=== PATIENT | female | born 1985 | race African-American/Black ===

== ENCOUNTER 2018-05-20 06:00 | Day surgery (SDC) | payer MEDICAID, SELFPAY ==
[2018-05-20] VITALS (8 sets, daily range): BP systolic 127–145; BP diastolic 77–90; PULSE 56–86; RESP 16; TEMP 36.7–37.6; O2SAT 95–98; BMI 48.5
[2018-05-20 06:37] LABS: Internal QC Validated? YES +Cl - CLEAR BKGD; Pregnancy, Urine Negative Negative
[2018-05-20] MEDS: Acetaminophen 500 MG Tablet 1000 MG PO (06:47)
[2018-05-20] MEDS: Ketorolac 60 MG/2 ML Vial IM (06:49)
--- NOTE | 2018-05-20 07:27 | PCM.HP.OB ---
History Date of Admission: 09/17/17 Final [place] Source: LMP History of this : This is a 32 year-old, G [], P [], at weeks gestational age. Allergies celecoxib [From Celebrex] Allergy (Verified 05/13/18 09:17) Swelling lisinopril Allergy (Verified 05/13/18 09:17) Chest tightness meperidine HCl [From Demerol] Allergy (Verified 05/13/18 09:17) Unknown Penicillins Allergy (Verified 05/13/18 09:17) Rash tramadol Allergy (Verified 05/13/18 09:17) Rash steri strips Allergy (Uncoded 05/13/18 09:17) Rash Home Medications: Home Medications Omeprazole 40 mg PO DAILY 05/07/16 Acetaminophen [Tylenol Extra Strength] 500 mg PO Q6H PRN PRN 05/13/18 Levonorgestrel-Ethin Estradiol [Aviane-28 Tablet] 1 each PO DAILY 05/13/18 Naproxen Sodium [Anaprox Ds] 550 mg PO TID PRN PRN 05/13/18 Smoking Status: Current every day smoker Alcohol: None History Past Pregnancies: Past Pregnancies Delivery Date Name GA/Weeks Outcome Route Weight Infant Gender Labor Length Anesthesia Delivery Location Provider FOB Review of Systems Constitutional: Denies: Anorexia, Chills, Fever Cardiovascular: Denies: Chest Pain Respiratory: Denies: Cough Gastrointestinal: Denies: Abdominal Pain Gynecological: Reports: Excessively long or heavy periods, - Physical Exam Vitals: Vital Signs Temp Pulse Resp BP Pulse Ox 99.7 F H 64 16 145/83 H 98 05/20/18 06:43 05/20/18 06:43 05/20/18 06:43 05/20/18 06:43 05/20/18 06:43 General: Alert, Cooperative, No apparent distress Cardiovascular: Regular rate, Regular Rhythm Lungs: Normal air movement Abdomen: Soft, Non Tender, Non-Distended, Obese Extremities:: No edema Assessment/Plan 32 YOF w/ heavy menses who has completed child bearing. Previous tubal. Failed conservative measures. Desires ablation. R/B/A/P reviewed, questions answered and she desires to proceed
--- NOTE | 2018-05-20 08:18 | PCM.DC.D&C ---
Discharge Diet: No Restrictions Discharge Activity: Return to Normal Activity, May Shower, May Take a Tub Bath - in 2 weeks. Allergies/Adverse Reactions: Allergies celecoxib [From Celebrex] Allergy (Verified 05/13/18 09:17) Swelling lisinopril Allergy (Verified 05/13/18 09:17) Chest tightness meperidine HCl [From Demerol] Allergy (Verified 05/13/18 09:17) Unknown Penicillins Allergy (Verified 05/13/18 09:17) Rash tramadol Allergy (Verified 05/13/18 09:17) Rash steri strips Allergy (Uncoded 05/13/18 09:17) Rash Medications to take at Discharge Omeprazole 40 mg PO DAILY 05/07/16 Hydrocodone Bitart/Apap 5-325 [[place] 5MG-325MG] 1 tablet PO Q6H PRN PRN 5 Days #8 tablet 05/20/18 Naproxen Sodium [Anaprox Ds] 550 mg PO TID PRN PRN #30 tab 05/20/18 The following prescriptions were given: Hydrocodone Bitart/Apap 5-325 [[place] 5MG-325MG] 1 tablet PO Q6H PRN PRN 5 Days #8 tablet PRN Reason: Pain Naproxen Sodium [Anaprox Ds] 550 mg PO TID PRN PRN #30 tab PRN Reason: Pain Primary Care Physician: Chris Licona MD [Primary Care Provider] - Test Results: Test results from this visit will be discussed in further detail at your follow-up appointment, if applicable. Please Follow Up With: Katelin Welsh MD When: as scheduled in 2 weeks
--- NOTE | 2018-05-20 08:23 | PCM.OPRPT ---
Report of Operation Date of Procedure: 05/20/18 Pre-Operative Diagnosis: Metromenorrhagia Post-Operative Diagnosis: Same Surgery/Procedure Performed:: Hysteroscopy with Trice endometrial ablation Description of Surgical Findings:: Lush endometrium. Normal-appearing cervix. manager intern: Alma Campos Type of Anesthesia:: MAC/Supplemental/Local Anesthesiologist: Mrya Metcalf Special Medications: none Specimen's removed: none Drains: none Estimated Blood Loss (mL): 10cc Fluids Replaced: 1000 cc LR Description of Procedure: The patient was taken to the OR where she was prepped and draped in dorsal lithotomy position. The weighted speculum was placed in the vagina and the anterior lip of the cervix was grasped with a single-tooth tenaculum. A paracervical block was administered with 1% lidocaine with 1-100,000 epinephrine solution. The cervix was dilated serially with Hegar dilators. The 5mm hysteroscope was placed into the uterine cavity and the above findings were noted. Bilateral tubal ostia were identified. The uterus sounded to 8 cm and the cervical length was 3.5 cm. The endometrial cavity length was 4.5 cm. The hysteroscope was removed. The Trice device was set to 4.5 cm. The instrument was then seated into the endometrial cavity and the indicator was in the green. The cervical seal balloon was inflated and the uterine integrity test was passed. The ablation procedure was initiated and completed without interruption. During the ablation procedure gentle traction was held on the tenaculum and the Trice device was held up against the uterine fundus. When the ablation procedure was completed the Trice was removed. The tenaculum was removed and the tenaculum site was noted to be hemostatic. All sponge and needle counts were correct. A vaginal sweep was performed by me. The patient was awakened and taken to the recovery room in stable condition. Hysteroscopic ins: 200cc normal saline Hysteroscopic outs:150cc Findings: Endometrial cavity: normal, no fibroids or polyps noted Cervix: normal Vagina: normal Grafts/Implants Used: none - Complications none - Admit VTE Documentation VTE Present on Admission: No VTE Mechan Device Prophylaxis: SCD's VTE Pharm Prophylaxis ordered?: No
== END 2018-05-20 09:56 | disposition home or self-care (01) ==
LOC: SDC 06:00 → AC 06:02
PROVIDERS: Anesthesiology; Family Provider Family Medicine; PCP Family Medicine; Visit Provider Obstetrics & Gynecology
PROC: 0U5B8ZZ Destruction of Endometrium, Via Natural or Artificial Opening Endoscopic (ICD-10-PCS; CPT 58558; principal; 2018-05-20 07:15)
DX: N92.1 Excessive and frequent menstruation with irregular cycle (principal); G47.30 Sleep apnea, unspecified; F17.200 Nicotine dependence, unspecified, uncomplicated; Z79.1 Long term (current) use of non-steroidal anti-inflammatories (NSAID); Z79.899 Other long term (current) drug therapy
CPT/HCPCS: 58563; 81025; J7120; J2405

== ENCOUNTER 2019-04-14 11:50 | Emergency (ER) | payer MEDICAID, SELFPAY ==
[2019-04-14 11:51] VITALS: BP 127/85; PULSE 71; RESP 17; TEMP 36.8; O2SAT 99; BMI 51.4
--- NOTE | 2019-04-14 12:16 | CT_ITS ---
STUDY: CT ABDOMEN AND PELVIS WITH CONTRAST REASON FOR EXAM: Female, 33 years old. 6 day history of abdominal pain. Elevated white cell count. RADIATION DOSAGE (If Supplied By Facility): CTDIvol = ( 45.65 ) mGy, DLP = ( 1960.92 ) mGycm TECHNIQUE: Transaxial images were obtained from the dome of the diaphragm to the symphysis pubis without oral contrast. 75mL IV Isovue 300 was administered. Sagittal and coronal images were reconstructed. Individualized dose optimization techniques were used for this CT. COMPARISON: Comparison is made with prior study dated April 11, 2017. FINDINGS: Stable minimal degree of increased markings at the lung bases suggest lobar scarring. The visualized portions of the heart are within normal limits. There is decreased attenuation of the liver consistent with steatosis. Normal gallbladder and extrahepatic biliary system. Normal spleen. Normal pancreas. Normal bilateral adrenal glands. Normal right kidney. Normal left kidney. Normal visualized stomach. Normal small intestine. Normal colon. The appendix is visualized and appears normal. Small lymph nodes are seen in the mesentery in the right lower quadrant suggesting mesenteric adenitis. Normal abdominal aorta. Normal inferior vena cava. Normal retroperitoneum. Normal urinary bladder. Dominant follicle in the right ovary measuring 1.5 cm Normal abdominal wall. Normal osseous structures. CT/Abdomen/Pelvis W IV Cont ONLY IMPRESSION: Findings suggesting mesenteric adenitis in the right lower quadrant. Fatty infiltration of the liver. Electronically Signed: Casey Traylor, at 13:49 EDT , Service support ,
--- NOTE | 2019-04-14 12:16 | EKG12_ITS ---
Test Reason : CP Blood Pressure : / mmHG Vent. Rate : 077 BPM Atrial Rate : 077 BPM P-R Int : 146 ms QRS Dur : 068 ms QT Int : 374 ms P-R-T Axes : 023 -03 -26 degrees QTc Int : 423 ms Normal sinus rhythm Normal ECG Confirmed by MORENO NORTH MD ([id number]), medical editor GEN HOUGH ([id number]) on 04/18/2019 2:29:19 PM Referred By: MR Confirmed By:MORENO NORTH MD
[2019-04-14 12:38] LABS: Absolute Lymphocyte Count 3.22 X10^3/uL (0.83-4.51); Absolute Neutrophil Count 7.6 X10^3/uL (2.0-7.7); Basophil# 0.04 X10^3/uL; Basophil% 0.3 % (0-1); Eosinophil# 0.08 X10^3/uL; Eosinophils% 0.7 % (0-5); Hematocrit 38.4 % (37-47); Hemoglobin 12.9 g/dL (12.0-15.0); Lymphocyte # 3.22 X10^3/ul (4.0); Lymphocyte % 27.8 % (19-41); Mean Corp Hgb Conc 33.6 g/dL (32-36); Mean Corpuscular Hgb 25.2 pg (27.0-32.0); Mean Corpuscular Volume 75.1 fL (81-99); Monocyte# 0.59 X10^3/uL; Monocyte% 5.1 % (0-10); NRBC Flagged by Analyzer 0 % (0-5); Neutrophil # 7.62 X10^3/uL (2.7-7.7); Neutrophil % 65.7 % (47-70); Platelet Count 497 K/mm3 (150-450); RBC Distribution Width CV 15.8 % (11.6-14.6); RBC Distribution Width SD 42.8 fl (35.1-43.9); Red Blood Count 5.11 M/mm3 (4.2-5.4); White Blood Count 11.6 K/mm3 (4.4-11.0)
[2019-04-14 12:51] LABS: ALB/GLOB Ratio 0.8 RATIO (0.9-2.4); AST(SGOT) 9 U/L (15-37); Alanine Aminotransfer ALT/SGPT 20 U/L (13-56); Albumin, Serum 3.5 g/dL (3.2-5.0); Alkaline Phosphatase 85 U/L (45-117); Anion Gap 5 (5-15); BUN 10 mg/dL (7-18); BUN/Creat Ratio 10.8 RATIO (10-20); Calcium,Total 8.9 mg/dL (8.5-10.1); Chloride 108 mmol/L (98-107); Creatinine, Serum 0.92 mg/dL (0.55-1.02); EST Glomerular Filtration Rate 75 mL/min (>60); Est Glom Filt Rate - Afr Amer 90 mL/min (>60); Estimated Creatinine Clearance 78.99 ml/min; Globulin 4.6 g/dL (2.2-4.2); Glucose 98 mg/dL (74-106); Lipase 98 U/L (73-393); Potassium 3.8 mmol/L (3.5-5.1); Protein, Total 8.1 g/dL (6.4-8.2); Sodium Level 136 mmol/L (136-145)
[2019-04-14] MEDS: Ondansetron 4 MG/2 ML Vial IV (13:02)
[2019-04-14] MEDS: 0.9% Normal Saline 1,000 ML 1000 ML IV (13:02)
[2019-04-14] MEDS: Morphine 4 MG/ML Syringe IV (13:03)
[2019-04-14] MEDS: Mag Hydrox/Al Hydrox/Simeth 30 ML UDC PO (13:04)
[2019-04-14 13:06] VITALS: BP 105/70; PULSE 77; RESP 18; O2SAT 99
[2019-04-14 13:22] LABS: Internal QC Validated? YES +Cl - CLEAR BKGD; Pregnancy, Serum, hCG Quali. NEGATIVE Negative
--- NOTE | 2019-04-14 14:29 | ED.DCSUM_ITS ---
- ER Visit Summary Date of Service: 04/14/19 Chief Complaint: Abdominal pain History of Present Illness: The patient is a [address] Randle. She reports that she has upper abdominal pain that began 5 days ago. To continue his pain that waxes and wanes. She describes it as sharp and icing. Is 10 out of 10 at worst and 7 out of 10 currently. Is worsened by eating or bending over. However, she also reports it is relieved by bending over at times as well. It is unchanged with deep breaths, movement, or exertion. She does state that it radiates up into the center of her chest. She denies any other chest pain. No fever or chills. No ankle swelling or calf pain. Physical Examination: Vitals: Stable. Afebrile. General: Well-nourished and well-developed. Head: Normocephalic atraumatic. Neck: Supple, no lymphadenopathy. No JVD. Nontender. Cardiovascular: Regular rate and rhythm. No murmurs. Respiratory: No respiratory distress. Clear to auscultation bilaterally. Abdominal: Soft, moderate tenderness palpation over her right upper quadrant, epigastric, and left upper quadrants, nondistended, normal bowel sounds. No guarding, rebound, or peritoneal signs. Back: Nontender. Extremities: Nontender, no edema. Skin: Normal color, no rash. Neurologic: Alert and oriented ?3. Cranial nerves II through XII are intact. Normal strength and sensation. Psych: Normal affect. Test Results: EKG is sinus at 77 with no acute changes. Troponin is negative. test is negative. LFTs are remarkable globin of 4.6 and AST of 9. Chem-7 shows a chloride 108. CBC shows a white count of 11.6 with 497 platelets. Clinical Impression(s) from Imaging Studies Abdomen/Pelvis CT 04/14/19 12:16 IMPRESSION: Findings suggesting mesenteric adenitis in the right lower quadrant. Fatty infiltration of the liver. Electronically Signed: Casey Traylor, at 13:49 EDT , Service support , Emergency Department Course and Treatment: Patient was given a dose of Toradol, morphine, and Zofran IV with minimal relief. She was given a GI cocktail with significant relief. Treatment Plan: Patient is already on Carafate and omeprazole. However, she reports that she been on the omeprazole for approximate 1 year. She will have Zantac added to this regimen and instructed to follow Dr. Randle as soon as possible for further evaluation and treatment. Return to the emergency department for any worsening symptoms. Disposition: To home in improved and stable condition. Impression: 1. Abdominal pain, uncertain cause. 2. Mesenteric adenitis. This note was generated with Center[employer] dictation software. It may contain incorrect words, spelling, and punctuation that were not noted in review of the chart prior to signing ED Disposition - Plan for ED Patient: Disposition: Home or Assisted Living Instructions: ABDOMINAL PAIN, Unknown Cause, (Female) Prescriptions: Ranitidine [Zantac] 300 mg PO DAILY #30 tab Prescription Printed Referrals: Chris Licona MD [Primary Care Provider] - 3-5 Days
[2019-04-14 14:48] VITALS: BP 120/75; PULSE 69; RESP 20; O2SAT 100
== END 2019-04-14 14:50 | disposition home or self-care (01) ==
LOC: ED 12:28
PROVIDERS: Emergency Provider Emergency Medicine; Family Provider Family Medicine; PCP Family Medicine
DX: I88.0 Nonspecific mesenteric lymphadenitis (principal); R10.10 Upper abdominal pain, unspecified; K21.9 Gastro-esophageal reflux disease without esophagitis; E11.9 Type 2 diabetes mellitus without complications; Z72.0 Tobacco use
CPT/HCPCS: 74177; 80053; 83690; 84484; 84703; 85025; 93005; 96361; 96374; 96375; 99285; Q9967; A4216; J2405

== ENCOUNTER 2019-06-09 10:57 | Emergency (ER) | payer MEDICAID, SELFPAY ==
[2019-06-09 10:59] VITALS: BP 163/83; PULSE 88; RESP 16; TEMP 36.9; O2SAT 99; BMI 52.4
--- NOTE | 2019-06-09 11:15 | US_ITS ---
STUDY: ABDOMINAL ULTRASOUND - RIGHT UPPER QUADRANT REASON FOR VISIT: Female, 33 years old. Right upper quadrant pain and vomiting. TECHNIQUE: Ultrasound evaluation of the right upper quadrant was performed with real-time and static sequeira-scale imaging. TECHNICAL QUALITY: Adequate. COMPARISON: Comparison is made with prior ultrasound examination dated May 25, 2014. FINDINGS: Liver: The liver is enlarged and measures 20 cm. There is increased echogenicity consistent with fatty infiltration. The bile ducts are within normal limits. There is hepatic color flow. The direction of portal flow is hepatopetal. There is no demonstrated mass lesion. Gallbladder: Normal distended gallbladder. The gallbladder wall measures 2.4 mm. There is a positive sonographic Alexander's sign. There is a trace amount of pericholecystic fluid. There are multiple echogenic structures within the gallbladder, consistent with multiple gallstones. Common Bile Duct (C.B.D.): The common bile duct measures 6.4 mm. Pancreas: Normal size of the head, body and tail of the pancreas. There is normal echogenicity of the pancreas. There is no demonstrated pancreatic mass or cyst. Right Kidney: Normal size of the right kidney. The right kidney measures 11.1 cm x 5.1 cm x 4.1 cm. Normal renal cortex. The right cortex measures 1.2 cm. There is no demonstrated renal mass or cyst. There is no right hydronephrosis. US/Gallbladder IMPRESSION: Multiple gallstones with minimal pericholecystic fluid. Hepatomegaly and fatty infiltration of the liver. Electronically Signed: Casey Traylor, at 13:26 EDT , Service support ,
--- NOTE | 2019-06-09 11:19 | ED.VISSUMM ---
- ER Visit Summary Date of Service: 06/09/19 Chief Complaint: Right upper quadrant abdominal pain History of Present Illness: The patient is a 33 F history of diabetes, hypertension, sleep apnea. Recently diagnosed with gallbladder disease with gallbladder dysfunction with a positive HIDA scan and known sludge. She has a pending elective cholecystectomy next week at [facility]. States yesterday started right upper quadrant abdominal pain with associated nausea vomiting. Today it worse pain with fever. As high as 101. No diarrhea. No dysuria. Physical Examination: Young female no acute distress. Vital signs are stable and afebrile. H EENT exam unremarkable. Moist mucous membranes. Neck nontender no lymphadenopathy. Lungs clear to auscultation bilaterally. Heart regular rhythm no murmur. Abdomen soft. Tender in the right upper quadrant and epigastric area. No Alexander sign. Left lower quadrant unremarkable. Normal bowel sounds soft abdomen. She is moving all 4 extremities. No edema. Nontender. Back nontender. Neurologically she is awake and alert. Test Results: CBC shows mildly elevated white count 12.7 with a hemoglobin. Chemistries are normal with a normal creatinine gap. Liver enzymes are normal. Lipase is normal at 80. UA is normal. test negative. Ultrasound right upper quadrant shows multiple gallstones with mild pericholecystic fluid. No signs of obstruction. Emergency Department Course and Treatment: Gallbladder dysfunction with a pending cholecystectomy next week. Resents with right upper quadrant abdominal pain and fever the last 2 days. Repeat exams patient is doing well at 1631. Abdomen is benign. She was treated with morphine, Toradol and Tylenol. Her current temperature is 99.2 orally.. Treatment Plan: I spoke to Dr. Mullen general surgeon on-call from the diner for the patient general surgeon Dr. Hawthorne. He had I discussed the patient's exam, vital signs history and test results. He is comfortable with her being discharged home with outpatient follow-up tomorrow. They may try to move her surgery up. I discussed all this with patient she is comfortable with the plan. I will write her for 10 Sheldon for pain. Otherwise continue using NSAIDs. Return to ER if increasing pain, fever or feeling worse. Disposition: Discharge Impression: Acute right upper quadrant abdominal pain secondary to biliary colic secondary to gallstones and gallbladder disease History of diabetes This note was generated with Driverdoation software. It may contain incorrect words, spelling, and punctuation that were not noted in review of the chart prior to signing ED Disposition - Plan for ED Patient: Referrals: Chris Licona MD [Primary Care Provider] -
[2019-06-09 11:31] LABS: Absolute Lymphocyte Count 2.87 X10^3/uL (0.83-4.51); Absolute Neutrophil Count 9.1 X10^3/uL (2.0-7.7); Basophil# 0.03 X10^3/uL; Basophil% 0.2 % (0-1); Eosinophil# 0.11 X10^3/uL; Eosinophils% 0.9 % (0-5); Hematocrit 39.9 % (37-47); Lymphocyte # 2.87 X10^3/ul (4.0); Lymphocyte % 22.5 % (19-41); Mean Corp Hgb Conc 32.6 g/dL (32-36); Mean Corpuscular Hgb 24.9 pg (27.0-32.0); Mean Corpuscular Volume 76.3 fL (81-99); Mean Platelet Vol. 8.8 fl (6.2-12.0); Monocyte# 0.57 X10^3/uL; Monocyte% 4.5 % (0-10); NRBC Flagged by Analyzer 0 % (0-5); Neutrophil # 9.12 X10^3/uL (2.7-7.7); Neutrophil % 71.7 % (47-70); Platelet Count 448 K/mm3 (150-450); RBC Distribution Width CV 16.4 % (11.6-14.6); RBC Distribution Width SD 45.3 fl (35.1-43.9); Red Blood Count 5.23 M/mm3 (4.2-5.4); White Blood Count 12.7 K/mm3 (4.4-11.0)
[2019-06-09] MEDS: 0.9% Normal Saline 1,000 ML 1000 ML IV (11:33)
[2019-06-09] MEDS: Ondansetron 4 MG/2 ML Vial IV ×2 (11:34→14:54)
[2019-06-09] MEDS: Ketorolac 30 MG/ML Syringe IV (11:34)
[2019-06-09 11:46] LABS: AST(SGOT) 10 U/L (15-37); Alanine Aminotransfer ALT/SGPT 19 U/L (13-56); Albumin, Serum 3.3 g/dL (3.2-5.0); Alkaline Phosphatase 84 U/L (45-117); Anion Gap 4 (5-15); BUN 9 mg/dL (7-18); BUN/Creat Ratio 9.1 RATIO (10-20); Bilirubin, Direct 0.14 mg/dL (0.00-0.30); Calcium,Total 8.7 mg/dL (8.5-10.1); Chloride 108 mmol/L (98-107); Creatinine, Serum 0.98 mg/dL (0.55-1.02); EST Glomerular Filtration Rate 69 mL/min (>60); Est Glom Filt Rate - Afr Amer 84 mL/min (>60); Estimated Creatinine Clearance 74.16 ml/min; Globulin 4.7 g/dL (2.2-4.2); Glucose 97 mg/dL (74-106); Lipase 80 U/L (73-393); Potassium 3.8 mmol/L (3.5-5.1); Sodium Level 139 mmol/L (136-145)
[2019-06-09 11:52] LABS: Internal QC Validated? YES +Cl - CLEAR BKGD
[2019-06-09 11:53] LABS: Pregnancy, Serum, hCG Quali. NEGATIVE Negative
[2019-06-09] MEDS: Acetaminophen 500 MG Tablet 1000 MG PO (13:35)
[2019-06-09 13:36] VITALS: RESP 18
[2019-06-09 14:45] LABS: Mucous, Urine 0 SEEN /hpf (<or=2+); Red Blood Cells-Urine 0 SEEN /hpf (0-5)
[2019-06-09 14:48] LABS: Color, Urine Yellow (Yellow); Glucose, Dipstick Normal (Normal); Ketone-Dipstick Negative (Negative); Leukocyte Esterase-Dipstick 25 /ul (Negative); Nitrite-Dipstick Negative (Negative); Occult Blood-Urine Negative /ul (Negative); Protein-Dipstick Negative (Negative); Urine Bilirubin Dipstick Negative (Negative); Urine Clarity Sl. Cloudy (Clear); Urine Urobilinogen Normal (Normal)
[2019-06-09] MEDS: Morphine 4 MG/ML Syringe IV (14:54)
[2019-06-09 14:59] LABS: Bacteria 1+ /hpf (None Seen); Squamous Epithelial Cells - UA 0-5 SEEN /hpf (5-10); White Blood Cells 0-5 SEEN /hpf (0-5)
[2019-06-09 15:03] VITALS: RESP 18
--- NOTE | 2019-06-09 16:35 | ED.DEP ---
ED Disposition - Plan for ED Patient: Disposition: Home or Assisted Living Instructions: BILIARY COLIC with Gallstone (Confirmed) Prescriptions: Hydrocodone Bitart/Apap 5-325 [Nardin 5MG-325MG] 1 - 2 tab PO Q4H PRN PRN 5 Days #14 tab PRN Reason: Pain Prescription Printed Additional Instructions: Call and follow-up with your general surgeon Dr. Hawthorne tomorrow morning. Call their office. I spoke to the doctor covering for Dr. Hawthorne today and they will try to move up her surgery. Motrin and Nardin for pain. Do not drive or use alcohol using the Nardin. Return to this ER or [facility] ER if you are feeling worse such as increasing pain or continued fever.
== END 2019-06-09 16:59 | disposition home or self-care (01) ==
PROVIDERS: Emergency Provider Emergency Medicine; Family Provider Family Medicine; PCP Family Medicine
DX: K80.20 Calculus of gallbladder without cholecystitis without obstruction (principal); R10.11 Right upper quadrant pain; I10 Essential (primary) hypertension; E11.9 Type 2 diabetes mellitus without complications; G47.33 Obstructive sleep apnea (adult) (pediatric); Z72.0 Tobacco use
CPT/HCPCS: 76705; 80048; 80076; 81001; 83690; 84703; 85025; 96361; 96374; 96375; 96376; 99284; J7030; A4216; J2405

== ENCOUNTER 2020-06-01 13:21 | Emergency (ER) | payer MEDICAID, SELFPAY ==
[2020-06-01 13:22] VITALS: BP 147/109; PULSE 92; RESP 18; TEMP 36.4; O2SAT 100; BMI 52.8
--- NOTE | 2020-06-01 13:39 | CT_ITS ---
STUDY: CT ABDOMEN AND PELVIS WITH CONTRAST REASON FOR EXAM: Female, 34 years old. Pelvic pain, vaginal bleeding, painful urination, intermittent constipation and diarrhea. Prior x 3, cholecystectomy, diabetes. RADIATION DOSAGE (If Supplied By Facility): CTDIvol = ( 33.79 ) mGy, DLP = ( 1934.88 ) mGycm TECHNIQUE: Transaxial images were obtained from the dome of the diaphragm to the symphysis pubis without oral contrast. 100mL Isovue 300 was administered. Sagittal and coronal images were reconstructed. Individualized dose optimization techniques were used for this CT. COMPARISON: None. FINDINGS: The visualized lung bases are unremarkable. The visualized portions of the heart are within normal limits. Normal liver. Nonvisualization of the gallbladder. No significant dilatation of the extrahepatic biliary system. Normal spleen. Normal pancreas. Normal bilateral adrenal glands. Normal right kidney. Normal left kidney. Normal visualized stomach. Normal small intestine. Normal colon. The appendix is not visualized. Normal abdominal aorta. Normal inferior vena cava. Normal retroperitoneum. Normal urinary bladder. Normal abdominal wall. Normal osseous structures. CT/Abdomen/Pelvis WITH Contrast IMPRESSION: No acute pathology of the abdomen and pelvis. Electronically Signed: Leobardo Akbar DO at 16:28 EDT Tel [phone], Service support ,
--- NOTE | 2020-06-01 13:40 | ED.DCSUM_ITS ---
History of Present Illness Chief Complaint: Abd Pain Informant: Patient Onset: Weeks Context: Gradual Onset Current Severity: Mild Maximum Severity: Moderate Narrative: Patient present secondary to abdominal pain along with dysuria and vaginal bleeding. She had her gallbladder out 1 year ago. Since that time she is had waxing and waning constipation and diarrhea. She does report worsened lower abdominal cramping over the past week or so. Today she noted some dysuria as well as vaginal bleeding. She had a uterine ablation in 2018 and has had no vaginal bleeding since that time. She denies fever or chills. No nausea or vomiting. - Past Medical History (1) Diabetes Status: Chronic (2) Hypertension Status: Chronic (3) Sleep apnea Status: Chronic Past Medical History - Allergies and Home Meds Allergies/Adverse Reactions: Allergies celecoxib [From Celebrex] Allergy (Verified 06/01/20 13:26) Swelling lisinopril Allergy (Verified 06/01/20 13:26) Chest tightness meperidine HCl [From Demerol] Allergy (Verified 06/01/20 13:26) Unknown Penicillins Allergy (Verified 06/01/20 13:26) Rash tramadol Allergy (Verified 06/01/20 13:26) Rash steri strips Allergy (Uncoded 06/01/20 13:26) Rash Primary Care Physician: Chris Licona MD [Primary Care Provider] - Prior records reviewed: Yes Surgical History: - - x3, uterine ablation Lives: With Family Smoking Status: Never smoker Review of Systems General: Denies: Chills, Fever Eyes: Denies: Visual changes - bilaterally ENT: Denies: Bilateral ear pain Cardiovascular: Denies: Chest pain Respiratory: Denies: Dyspnea, Cough Gastrointestinal: Reports: Abdominal pain, Diarrhea, Constipation. Denies: Nausea, Vomiting Genitourinary: Reports: Dysuria Musculoskeletal: Denies: Swelling, Extremity Pain Skin: Denies: Rash Hematologic: Denies: Easy bruising, Easy bleeding Allergy: Denies: Uticaria Physical Exam Vital Signs/Narrative: Vital Signs Temp Pulse Resp BP Pulse Ox 06/01/20 13:22 97.6 F L 92 18 147/109 H 100 Inital Vital Signs reviewed: Yes General: Well nourished, Well developed Head: Normocephalic, Atraumatic ENT: Moist mucous membranes Neck: Supple Cardiovascular: Regular rate, Regular rhythm Respiratory: No distress, CTA bilaterally Abdomen: Soft, Normal bowel sounds, Tender - Lower abdominal tenderness to pa lpation.. Negative for: Guarding, Rebound tenderness : - - Examination reveals small amounts of old appearing blood in the vaginal canal. No external lesions noted. Back: Nontender Extremities: Nontender Skin: Normal color, No rash Neurological: Alert, Oriented x3 Psychological: Normal affect Diagnostic/Tx/Re-eval Impressions Abdomen/Pelvis CT 06/01/20 13:39 IMPRESSION: No acute pathology of the abdomen and pelvis. Electronically Signed: Leobardo Akbar DO at 16:28 EDT Tel [phone], Service support , 06/01/20 13:39 Abdomen/Pelvis WITH Contrast [CT] Stat Laboratory Results 06/01/20 06/01/20 06/01/20 13:35 13:35 13:40 WBC 12.2 H RBC 5.77 H Hgb 14.9 Hct 45.2 MCV 78.3 L MCH 25.8 L MCHC 33.0 RDW Std Deviation 43.2 RDW Coeff of Sanchez 15.3 H Plt Count 547 H MPV 8.7 Immature Gran % (Auto) 0.300 Neut % (Auto) 68.3 Lymph % (Auto) 25.6 Knott % (Auto) 4.7 Eos % (Auto) 0.8 Baso % (Auto) 0.3 Absolute Neuts (auto) 8.3 H Absolute Lymphs (auto) 3.11 Nucleated RBC % 0 Sodium Potassium Chloride Carbon Dioxide Anion Gap BUN Creatinine Estim Creat Clear Calc Est GFR (MDRD) Af Amer Est GFR (MDRD) Non-Af BUN/Creatinine Ratio Glucose Calcium Urine Color Yellow Urine Clarity Sl. Cloudy Urine pH 5.0 Ur Specific [place] 1.015 Urine Protein Negative Urine Glucose (UA) Normal Urine Ketones Negative Urine Occult Blood 250 H Urine Nitrite Negative Urine Bilirubin Negative Urine Urobilinogen Normal Ur Leukocyte Esterase 25 H Urine RBC 0 SEEN Urine WBC 0 SEEN Ur Squamous Epith Cells 0 SEEN Urine Bacteria 0 SEEN Urine Mucus 0 SEEN Urine Test Negative 06/01/20 13:40 WBC RBC Hgb Hct MCV MCH MCHC RDW Std Deviation RDW Coeff of Sanchez Plt Count MPV Immature Gran % (Auto) Neut % (Auto) Lymph % (Auto) Knott % (Auto) Eos % (Auto) Baso % (Auto) Absolute Neuts (auto) Absolute Lymphs (auto) Nucleated RBC % Sodium 140 Potassium 3.8 Chloride 107 Carbon Dioxide 24.0 Anion Gap 9 BUN 7 Creatinine 0.92 Estim Creat Clear Calc 78.26 Est GFR (MDRD) Af Amer 91 Est GFR (MDRD) Non-Af 75 BUN/Creatinine Ratio 7.7 L Glucose 142 H Calcium 9.3 Urine Color Urine Clarity Urine pH Ur Specific [place] Urine Protein Urine Glucose (UA) Urine Ketones Urine Occult Blood Urine Nitrite Urine Bilirubin Urine Urobilinogen Ur Leukocyte Esterase Urine RBC Urine WBC Ur Squamous Epith Cells Urine Bacteria Urine Mucus Urine Test - Medical Decision Making Patient was given morphine and Zofran for pain. She was given Pepcid for reflux. CT scan is unremarkable. Blood work is grossly unremarkable. She does have evidence of vaginal bleeding on pelvic examination. I spoke with Carla Arevalo, nurse probate lawyer for [facility]. She advises just have the patient follow-up in the clinic. She will be given a prescription for Turon at home for pain control. ED Disposition - Plan for ED Patient: Disposition: Home or Assisted Living Diagnosis: Pelvic pain Instructions: ED Pelvic Pain [facility] Prescriptions: Hydrocodone Bitart/Apap 5-325 [Turon 5MG-325MG] 1 tablet PO Q6H PRN PRN 3 Days #10 tablet PRN Reason: Pain Transmission Status: Sent to [facility][id number] Referrals: Katelin Welsh MD [STAFF PHYSICIAN] - 1-2 Weeks
[2020-06-01 13:43] VITALS: BP 147/109; PULSE 92; RESP 18; TEMP 36.4; O2SAT 100
[2020-06-01 13:44] LABS: Bacteria 0 SEEN /hpf (None Seen); Mucous, Urine 0 SEEN /hpf (<or=2+); Red Blood Cells-Urine 0 SEEN /hpf (0-5); Squamous Epithelial Cells - UA 0 SEEN /hpf (5-10); White Blood Cells 0 SEEN /hpf (0-5)
[2020-06-01 13:54] LABS: Internal QC Validated? YES +Cl - CLEAR BKGD; Pregnancy, Urine Negative Negative
[2020-06-01 13:55] LABS: Color, Urine Yellow (Yellow); Glucose, Dipstick Normal (Normal); Ketone-Dipstick Negative (Negative); Leukocyte Esterase-Dipstick 25 /ul (Negative); Nitrite-Dipstick Negative (Negative); Occult Blood-Urine 250 /ul (Negative); Protein-Dipstick Negative (Negative); Specific Gravity, Urine 1.015 (1.002-1.030); Urine Bilirubin Dipstick Negative (Negative); Urine Clarity Sl. Cloudy (Clear); Urine Urobilinogen Normal (Normal)
[2020-06-01 13:55] LABS: Absolute Lymphocyte Count 3.11 X10^3/uL (0.83-4.51); Absolute Neutrophil Count 8.3 X10^3/uL (2.0-7.7); Basophil# 0.04 X10^3/uL; Basophil% 0.3 % (0-1); Eosinophils% 0.8 % (0-5); Hematocrit 45.2 % (37-47); Hemoglobin 14.9 g/dL (12.0-15.0); Lymphocyte # 3.11 X10^3/ul (4.0); Lymphocyte % 25.6 % (19-41); Mean Corpuscular Hgb 25.8 pg (27.0-32.0); Mean Corpuscular Volume 78.3 fL (81-99); Mean Platelet Vol. 8.7 fl (6.2-12.0); Monocyte# 0.57 X10^3/uL; Monocyte% 4.7 % (0-10); NRBC Flagged by Analyzer 0 % (0-5); Neutrophil % 68.3 % (47-70); Platelet Count 547 K/mm3 (150-450); RBC Distribution Width CV 15.3 % (11.6-14.6); RBC Distribution Width SD 43.2 fl (35.1-43.9); Red Blood Count 5.77 M/mm3 (4.2-5.4); White Blood Count 12.2 K/mm3 (4.4-11.0)
[2020-06-01] MEDS: 0.9% Normal Saline 1,000 ML 150 ML IV (13:59)
[2020-06-01] MEDS: Ondansetron 4 MG/2 ML Vial IV (13:59)
[2020-06-01] MEDS: Morphine 4 MG/ML Syringe IV ×2 (14:00→15:48)
[2020-06-01 14:08] LABS: Anion Gap 9 (5-15); BUN 7 mg/dL (7-18); BUN/Creat Ratio 7.7 RATIO (10-20); Calcium,Total 9.3 mg/dL (8.5-10.1); Chloride 107 mmol/L (98-107); Creatinine, Serum 0.92 mg/dL (0.55-1.02); EST Glomerular Filtration Rate 75 mL/min (>60); Est Glom Filt Rate - Afr Amer 91 mL/min (>60); Estimated Creatinine Clearance 78.26 ml/min; Glucose 142 mg/dL (74-106); Potassium 3.8 mmol/L (3.5-5.1); Sodium Level 140 mmol/L (136-145)
[2020-06-01] MEDS: Famotidine 200 MG/20 ML MDV 20 MG in 0.9% Normal Saline (Pres. free 8 ML 300 MG IV (15:50)
[2020-06-01 15:58] VITALS: BP 118/76; PULSE 83; RESP 18; TEMP 36.9; O2SAT 99
[2020-06-01 17:43] VITALS: BP 151/97; PULSE 83
== END 2020-06-01 17:48 | disposition home or self-care (01) ==
PROVIDERS: Emergency Provider Emergency Medicine; PCP Family Medicine
DX: R10.2 Pelvic and perineal pain (principal); E11.9 Type 2 diabetes mellitus without complications; I10 Essential (primary) hypertension; Z79.84 Long term (current) use of oral hypoglycemic drugs; Z79.899 Other long term (current) drug therapy
CPT/HCPCS: 74177; 80048; 81001; 81025; 85025; 96361; 96365; 96375; 96376; 99283; J7030; Q9967; A4216; J2405; J3490

== ENCOUNTER → 2020-07-12 | Outpatient (CLI) | payer MEDICAID, SELFPAY ==
[2020-07-04 10:48] VITALS: BMI 52.8
--- NOTE | 2020-07-12 17:51 | MRI_ITS ---
STUDY: MRI LEFT KNEE REASON FOR EXAM: Left knee pain, 2 prior surgeries. TECHNIQUE: Standardized fat and water weighted pulse sequences were obtained in all 3 orthogonal planes. COMPARISON: None. FINDINGS: Normal medial meniscus. Normal hyaline cartilage of the medial femorotibial compartment. Normal medial femoral condyle and tibial plateau. Normal medial collateral ligamentous complex (MCL). Normal distal semimembranosus, gracilis and semitendinosus tendons. Normal lateral meniscus. Normal hyaline cartilage of the lateral femorotibial compartment. Normal lateral femoral condyle and tibial plateau. Normal proximal tibiofibular articulation. Normal lateral collateral (fibular) ligament. Normal popliteus tendon. Normal biceps femoris tendon. Normal anterior cruciate ligament (ACL). There is mild scarring of the posterior cruciate ligament near the genu (T2 sagittal image 11). Normal congruent patellofemoral articulation. Normal hyaline cartilage of the patellofemoral compartment. Normal medial and lateral patellar retinaculum. Normal visualized quadriceps tendon. Normal patellar tendon. Normal Hoffa''s fat pad. There is no joint effusion. There is a thin medial patellar plica. The soft tissues are unremarkable. The otherwise visualized osseous structures are unremarkable. MRI/Lower Ext Joint Only (Routine) IMPRESSION: Mild scarring of the posterior cruciate ligament. No demonstrated meniscal tear or lateral collateral ligament injury. Electronically Signed: Mac Sanchez MD at 7:26 EDT Tel , Service support ,
== END | disposition home or self-care (01) ==
LOC: MRI 17:51
PROVIDERS: PCP Family Medicine; Referring Provider Orthopaedic Surgery; Visit Provider Orthopaedic Surgery
DX: M25.362 Other instability, left knee (principal); M25.562 Pain in left knee
CPT/HCPCS: 73721

== ENCOUNTER 2020-09-18 16:34 | Emergency (ER) | payer MEDICAID, SELFPAY ==
[2020-09-18 16:34] VITALS: BP 155/94; PULSE 91; RESP 16; TEMP 36.6; O2SAT 100; BMI 53.2
--- NOTE | 2020-09-18 17:06 | ED.DCSUM_ITS ---
History of Present Illness Chief Complaint: Lower Extremity Injury Informant: Patient Narrative: Patient is a 34-year-old female who presents to the emergency department for diffuse pelvic pain. She states that she fell getting out of the shower 2 days ago. She stepped over the ledge getting out of the shower with her left leg and her right foot started slipping out. She states that she fell into a split position. She denies hitting her head or losing consciousness. She has been taking muscle relaxers for her symptoms but has not been getting better. She states she can only walk short distances but the pain becomes so severe she has to stop. Sitting in the car she has to arch her back backwards to help with the pain. Feels like her pelvis is tilted forward. She does have pain going down the left leg. She denies any saddle anesthesia. No urinary retention. She denies any fevers or chills. She is chronic abdominal pain is not worse than normal. She denies any back pain. No chest pain or shortness of breath. No fevers or chills. She denies any chance of being . Past Medical History - Allergies and Home Meds Allergies/Adverse Reactions: Allergies celecoxib [From Celebrex] Allergy (Verified 09/18/20 16:36) Swelling lisinopril Allergy (Verified 09/18/20 16:36) Chest tightness meperidine HCl [From Demerol] Allergy (Verified 09/18/20 16:36) Unknown Penicillins Allergy (Verified 09/18/20 16:36) Rash tramadol Allergy (Verified 09/18/20 16:36) Rash sucralfate Adverse Reaction (Mild, Verified 09/18/20 16:36) swelling steri strips Allergy (Uncoded 09/18/20 16:36) Rash Primary Care Physician: Chris Licona MD [Primary Care Provider] - 3-5 Days Prior records reviewed: Yes Surgical History: noncontributory, - - x3, uterine ablation Smoking Status: Current every day smoker Review of Systems All systems negative except as indicated General: Denies: Chills, Fever, Sweats Eyes: Denies: Visual changes - bilaterally, Diplopia ENT: Denies: Rhinorrhea, Sore throat Cardiovascular: Denies: Chest pain, Palpitations Respiratory: Denies: Dyspnea, Cough, Dyspnea on exertion Gastrointestinal: Denies: Abdominal pain, Nausea, Vomiting, Diarrhea Genitourinary: Denies: Dysuria, Hematuria, Frequency Musculoskeletal: Reports: Extremity Pain. Denies: Neck pain, Back pain Skin: Denies: Rash, Wounds Neurological: Denies: Headache, Weakness, Numbness Physical Exam Vital Signs/Narrative: Vital Signs Temp Pulse Resp BP Pulse Ox 09/18/20 16:34 97.8 F 91 16 155/94 H 100 General: Well nourished, Well developed, No Acute Distress Head: Normocephalic, Atraumatic Eyes: Perrl, EOMI ENT: Moist mucous membranes, No rhinorrhea Neck: Supple, Nontender Cardiovascular: Regular rate, Regular rhythm, No murmurs Respiratory: No distress, CTA bilaterally, Chest nontender Abdomen: Soft, Nontender, Nondistended, Normal bowel sounds Back: Nontender, Normal Inspection Extremities: No edema, Tenderness - To anterior compression of hips bilaterally, worse on the left. No deformity appreciated. Neurovascularly intact of lower extremities. Skin: Normal color, No rash Neurological: Alert, Oriented x3, Normal Strength, Normal Sensation Psychological: Normal affect, Normal Mood Diagnostic/Tx/Re-eval Pelvis x-ray interpreted by myself. No acute fractures or dislocated of acetabular bilaterally. No separation of the pubic symphysis. Agree with radiologist interpretation. - Medical Decision Making Patient presents to the ED for bilateral pelvis pain. Had a fall 2 days ago. She has been able to ambulate and weight-bear. She is in no apparent distress o n physical exam. X-rays being obtained of the pelvis. X-rays did not reveal any acute traumatic findings. Will recommend symptomatic treatment in the meantime. She can take Tylenol/ibuprofen. She can continue on the muscle relaxer. She is to use heat over the painful areas and stretch the back and hips. To follow-up with her PCP otherwise. She can continue on physical therapy which she is getting for other reasons. Patient understands and is agreeable this plan. Will discharge home in stable condition. All questions answered. ED Disposition - Plan for ED Patient: Disposition: Home or Assisted Living Diagnosis: Pelvic pain Instructions: ED Pain, Acute, Uncertain Cause Referrals: Chris Licona MD [Primary Care Provider] - 3-5 Days
--- NOTE | 2020-09-18 17:20 | RAD_ITS ---
STUDY: X-RAY - PELVIS REASON FOR EXAM: Female, 34 years old. COMPLAINS OF CONTINUED PELVIC PAIN AFTER FALLING ON THURSDAY. TECHNIQUE: One view of the pelvis was obtained. COMPARISON: None. FINDINGS: There is a non-specific bowel gas pattern. Normal visualized soft tissue structures. Normal bilateral iliac wings, sacroiliac joints and visualized sacrum. Normal visualized bilateral superior and inferior pubic rami. Normal pubic symphysis. Normal ischial tuberosities. Normal visualized right femoral head. Normal right acetabulum. Normal right hip joint. Normal visualized left femoral head. Normal left acetabulum. Normal left hip joint. RAD/Pelvis 1 or 2 Views IMPRESSION: Normal x-ray examination of the pelvis. Electronically Signed: Beni Hanson MD at 17:34 EST , Service support ,
[2020-09-18 18:07] VITALS: BP 125/84
== END 2020-09-18 18:12 | disposition home or self-care (01) ==
PROVIDERS: Emergency Provider Emergency Medicine; PCP Family Medicine
DX: R10.2 Pelvic and perineal pain (principal); F17.200 Nicotine dependence, unspecified, uncomplicated
CPT/HCPCS: 72170; 99282

== ENCOUNTER 2020-11-05 12:44 | Emergency (ER) | payer MEDICAID, SELFPAY ==
[2020-11-05 12:45] VITALS: BP 149/100; PULSE 98; RESP 20; TEMP 36.4; O2SAT 96; BMI 51.9
--- NOTE | 2020-11-05 12:49 | ED.VIS.GEN ---
History of Present Illness Chief Complaint: Allergic Reaction Informant: Patient Narrative: 35 f presents with allergic reaction. Patient was eating chicken McNuggets and barbecue sauce and shortly after began having a strange feeling to her tongue and throat. Had no difficulty breathing. States that after the of her son she began having food allergies. States that a few months ago she had a similar episode at [facility]. States that she ate Benadryl at that time and her symptoms resolved over the 2 days. Past Medical History - Allergies and Home Meds Allergies/Adverse Reactions: Allergies celecoxib [From Celebrex] Allergy (Verified 09/18/20 16:36) Swelling lisinopril Allergy (Verified 09/18/20 16:36) Chest tightness meperidine HCl [From Demerol] Allergy (Verified 09/18/20 16:36) Unknown Penicillins Allergy (Verified 09/18/20 16:36) Rash tramadol Allergy (Verified 09/18/20 16:36) Rash sucralfate Adverse Reaction (Mild, Verified 09/18/20 16:36) swelling steri strips Allergy (Uncoded 09/18/20 16:36) Rash Primary Care Physician: Chris Licona MD [Primary Care Provider] - Prior records reviewed: Yes Past Medical History: - - HTN Surgical History: noncontributory, - - x3, uterine ablation Lives: Spouse/ Significant Other Smoking Status: Current every day smoker Alcohol: None Drugs: None Review of Systems General: Denies: Chills, Fever, Sweats Eyes: Denies: Visual changes - bilaterally, Diplopia ENT: Denies: Rhinorrhea, Sore throat Cardiovascular: Denies: Chest pain, Palpitations Respiratory: Denies: Dyspnea, Cough, Dyspnea on exertion Gastrointestinal: Denies: Abdominal pain, Nausea, Vomiting, Diarrhea, Melena, Hematochezia Genitourinary: Denies: Dysuria, Hematuria, Frequency Musculoskeletal: Denies: Back pain, Extremity Pain Skin: Denies: Rash, Wounds Neurological: Denies: Headache, Weakness, Numbness Physical Exam Inital Vital Signs reviewed: Yes General: Well nourished, Well developed, No Acute Distress Head: Normocephalic, Atraumatic Eyes: Perrl, EOMI ENT: Moist mucous membranes, No rhinorrhea Neck: Supple, Nontender Cardiovascular: Regular rate, Regular rhythm, No murmurs Respiratory: No distress, CTA bilaterally, Chest nontender Abdomen: Soft, Nontender, Nondistended, Normal bowel sounds Back: Nontender, Normal Inspection Extremities: Nontender, No edema Skin: Normal color, No rash Neurological: Alert, Oriented x3, Cranial nerves II-XII grossly intact, Normal Strength, Normal Sensation Psychological: Normal affect, Normal Mood Diagnostic/Tx/Re-eval - Medical Decision Making Patient appears well and nontoxic. No signs of anaphylaxis. Lungs clear. Patient given Solu-Medrol, Pepcid, Benadryl. Patient will be given prednisone, Pepcid, Benadryl for home. Asked return for any new or worsening symptoms. Patient agreeable and discharged home in stable condition. Impression: 1. Allergic reaction ED Disposition - Plan for ED Patient: Disposition: Home or Assisted Living Instructions: ED General Allergic Reactions Prescriptions: DiphenhydrAMINE [Benadryl] 25 mg PO BID PRN PRN #10 cap PRN Reason: Allergies Prescription Printed Prednisone [Deltasone] 40 mg PO DAILY #10 tab Prescription Printed Famotidine [Pepcid] 20 mg PO BID #10 tab Prescription Printed Referrals: Chris Licona MD [Primary Care Provider] - 2 Days
[2020-11-05] MEDS: DiphenhydrAMINE 50 MG/ML Syringe 25 MG IV (12:53)
[2020-11-05] MEDS: MethylPREDNISolone 125 MG/2 ML Vial IV (12:54)
[2020-11-05 13:16] VITALS: BP 131/77; PULSE 88; RESP 20; O2SAT 98
[2020-11-05] MEDS: Famotidine 200 MG/20 ML MDV 20 MG in 0.9% Normal Saline (Pres. free 8 ML 300 MG IV (13:19)
[2020-11-05 14:58] VITALS: BP 158/83; PULSE 82; RESP 17; O2SAT 97
[2020-11-05] MEDS: Acetaminophen 500 MG Tablet 1000 MG PO (15:00)
[2020-11-05 15:03] VITALS: RESP 18
== END 2020-11-05 15:06 | disposition home or self-care (01) ==
PROVIDERS: Emergency Provider Emergency Medicine; PCP Family Medicine
DX: T78.40XA Allergy, unspecified, initial encounter (principal); I10 Essential (primary) hypertension; F17.200 Nicotine dependence, unspecified, uncomplicated
CPT/HCPCS: 96374; 96375; 99284; A4216; J3490

== ENCOUNTER 2020-11-19 10:17 | Inpatient (IN) | payer MEDICAID, SELFPAY ==
[2020-11-19] VITALS (17 sets, daily range): BP systolic 107–141; BP diastolic 61–93; PULSE 67–84; RESP 14–22; TEMP 36.1–36.7; O2SAT 97–100; BMI 50.8; BMI 50.1
[2020-11-19 10:36] LABS: Bedside Glucose 469 mg/dL (70-110)
--- NOTE | 2020-11-19 11:03 | ED.VIS.GEN ---
History of Present Illness Chief Complaint: Hyperglycemia Informant: Patient Onset: Days Context: Gradual Onset Timing: Continuous Current Severity: Moderate Maximum Severity: Moderate Narrative: Patient is a 35-year-old female with history of [id number] diabetes who presents to the emergency department with elevated blood sugar and nausea. The patient was recently evaluated for an allergic reaction to food. She was on prednisone, but completed that about 10 days ago. She states despite being off the prednisone, she has had very difficult to manage blood sugars. She recently got a blood sugar meter. Her sugars been running anywhere from the upper 300s to the meter just reading high. She states she is been nauseated. She admits to increased urinary frequency and urgency. She is also had some cramping abdominal pain. The patient is actually scheduled for outpatient endoscopy and colonoscopy on Thursday. She was supposed to follow with endocrinology today, because of her symptoms she presented to the emergency department. Prior similar symptoms: No Recent Illness/Hospitalization: No Past Medical History - Allergies and Home Meds Allergies/Adverse Reactions: Allergies celecoxib [From Celebrex] Allergy (Verified 11/19/20 10:26) Swelling lisinopril Allergy (Verified 11/19/20 10:26) Chest tightness meperidine HCl [From Demerol] Allergy (Verified 11/19/20 10:26) Unknown Penicillins Allergy (Verified 11/19/20 10:26) Rash tramadol Allergy (Verified 11/19/20 10:26) Rash sucralfate Adverse Reaction (Mild, Verified 11/19/20 10:26) swelling duloxetine [From Cymbalta] Adverse Reaction (Verified 11/19/20 10:26) headaches steri strips Allergy (Uncoded 11/19/20 10:26) Rash Primary Care Physician: Chris Licona MD [Primary Care Provider] - Prior records reviewed: Yes Past Medical History: - - DM, anxiety depression Surgical History: noncontributory, - - x3, uterine ablation Smoking Status: Never smoker Review of Systems General: Denies: Chills, Fever, Sweats Eyes: Denies: Visual changes - bilaterally, Diplopia ENT: Denies: Rhinorrhea, Sore throat Cardiovascular: Denies: Chest pain, Palpitations Respiratory: Denies: Dyspnea, Cough, Dyspnea on exertion Gastrointestinal: Reports: Nausea. Denies: Abdominal pain, Vomiting, Diarrhea, Melena, Hematochezia Genitourinary: Denies: Dysuria, Hematuria, Frequency Musculoskeletal: Denies: Back pain, Extremity Pain Skin: Denies: Rash, Wounds Neurological: Denies: Headache, Weakness, Numbness Physical Exam Vital Signs/Narrative: Vital Signs Temp Pulse Resp BP Pulse Ox 11/19/20 10:22 97.2 F L 76 22 H 107/93 H 99 Inital Vital Signs reviewed: Yes General: Well nourished, Well developed, No Acute Distress Head: Normocephalic, Atraumatic Eyes: Perrl, EOMI ENT: Moist mucous membranes, No rhinorrhea Neck: Supple, Nontender Cardiovascular: Regular rate, Regular rhythm, No murmurs Respiratory: No distress, CTA bilaterally, Chest nontender Abdomen: Soft, Nontender, Nondistended, Normal bowel sounds Back: Nontender, Normal Inspection Extremities: Nontender, No edema Skin: Normal color, No rash Neurological: Alert, Oriented x3, Cranial nerves II-XII grossly intact, Normal Strength, Normal Sensation Psychological: Normal affect, Normal Mood Diagnostic/Tx/Re-eval Abnormal Lab Results 11/19/20 11/19/20 11/19/20 10:33 11:08 11:08 WBC RBC Hgb Hct MCV MCH MCHC RDW Std Deviation RDW Coeff of Sanchez Plt Count MPV Immature Gran % (Auto) Neut % (Auto) Lymph % (Auto) [place] % (Auto) Eos % (Auto) Baso % (Auto) Absolute Neuts (auto) Absolute Lymphs (auto) Nucleated RBC % Sodium Potassium Chloride Carbon Dioxide Anion Gap BUN Creatinine Estim Creat Clear Calc Est GFR (MDRD) Af Amer Est GFR (MDRD) Non-Af BUN/Creatinine Ratio Glucose Calcium Total Bilirubin AST ALT Alkaline Phosphatase Total Protein Albumin Globulin Albumin/Globulin Ratio Lipase Urine Color Yellow Urine Clarity Clear Urine pH 5.0 Ur Specific [place] 1.010 Urine Protein Negative Urine Glucose (UA) 1000 H Urine Ketones 150 H Urine Occult Blood Negative Urine Nitrite Negative Urine Bilirubin Negative Urine Urobilinogen Normal Ur Leukocyte Esterase 25 H Urine RBC 0 SEEN Urine WBC 0-5 SEEN Ur Squamous Epith Cells 0-5 SEEN Urine Bacteria RARE Urine Mucus 0 SEEN Urine Yeast 1+ Urine Test Negative Acetone Level POC Glucose 469 H* 11/19/20 11/19/20 11/19/20 11:20 11:20 11:20 WBC 9.8 RBC 5.44 H Hgb 15.0 Hct 43.0 MCV 79.0 L MCH 27.6 MCHC 34.9 RDW Std Deviation 42.0 RDW Coeff of Sanchez 14.7 H Plt Count 428 MPV 9.9 Immature Gran % (Auto) 0.300 Neut % (Auto) 72.4 H Lymph % (Auto) 18.7 L [place] % (Auto) 7.1 Eos % (Auto) 0.9 Baso % (Auto) 0.6 Absolute Neuts (auto) 7.1 Absolute Lymphs (auto) 1.82 Nucleated RBC % 0 Sodium 131 L Potassium 3.6 Chloride 99 Carbon Dioxide 19.0 L Anion Gap 13 BUN 9 Creatinine 1.08 H Estim Creat Clear Calc 66.05 Est GFR (MDRD) Af Amer 75 Est GFR (MDRD) Non-Af 62 BUN/Creatinine Ratio 8.3 L Glucose 448 H Calcium 9.3 Total Bilirubin 0.90 AST 8 L ALT 25 Alkaline Phosphatase 102 Total Protein 7.8 Albumin 3.8 Globulin 4.0 Albumin/Globulin Ratio 1.0 Lipase 151 Urine Color Urine Clarity Urine pH Ur Specific [place] Urine Protein Urine Glucose (UA) Urine Ketones Urine Occult Blood Urine Nitrite Urine Bilirubin Urine Urobilinogen Ur Leukocyte Esterase Urine RBC Urine WBC Ur Squamous Epith Cells Urine Bacteria Urine Mucus Urine Yeast Urine Test Acetone Level SMALL H POC Glucose - Medical Decision Making The patient presents with nausea, vomiting, and elevated blood sugar. I was concerned for DKA. Blood sugar initially read in the upper 400s. IV was established. Patient is given 2 L of fluids and Zofran. She did have some improvement of her nausea. Screening labs do show hyperglycemia. Her anion gap is normal, but her bicarb is decreased. She has large urine ketones and small serum ketones. At this point, the patient will be started on insulin drip for mild DKA. She will be admitted to the ICU. Impression 1. DKA - Critical Care Time Critical care time (excluding procedures): 30-74 minutes, Discussing w/Patient &/or Family/Director [employer], Discussing w/Consultants, Arranging Admission or Transfer ED Disposition - Plan for ED Patient: Referrals: Chris Licona MD [Primary Care Provider] -
[2020-11-19 11:09] LABS: Mucous, Urine 0 SEEN /hpf (<or=2+); Red Blood Cells-Urine 0 SEEN /hpf (0-5)
[2020-11-19 11:15] LABS: Color, Urine Yellow (Yellow); Glucose, Dipstick 1000 mg/dl (Normal); Leukocyte Esterase-Dipstick 25 /ul (Negative); Nitrite-Dipstick Negative (Negative); Occult Blood-Urine Negative /ul (Negative); Protein-Dipstick Negative (Negative); Urine Bilirubin Dipstick Negative (Negative); Urine Clarity Clear (Clear); Urine Urobilinogen Normal (Normal)
[2020-11-19 11:16] LABS: Ketone-Dipstick 150 mg/dl (Negative)
[2020-11-19 11:18] LABS: Internal QC Validated? YES +Cl - CLEAR BKGD; Pregnancy, Urine Negative Negative
[2020-11-19] MEDS: 0.9% Normal Saline 1,000 ML 1000 ML IV (11:21)
[2020-11-19] MEDS: Ondansetron 4 MG/2 ML Vial IV (11:21)
[2020-11-19 11:26] LABS: Bacteria RARE /hpf (None Seen); Squamous Epithelial Cells - UA 0-5 SEEN /hpf (5-10); White Blood Cells 0-5 SEEN /hpf (0-5); Yeast-Urine 1+ /hpf (None Seen)
[2020-11-19 11:34] LABS: Absolute Lymphocyte Count 1.82 X10^3/uL (0.83-4.51); Absolute Neutrophil Count 7.1 X10^3/uL (2.0-7.7); Basophil# 0.06 X10^3/uL; Basophil% 0.6 % (0-1); Eosinophil# 0.09 X10^3/uL; Eosinophils% 0.9 % (0-5); Lymphocyte # 1.82 X10^3/ul (4.0); Lymphocyte % 18.7 % (19-41); Mean Corp Hgb Conc 34.9 g/dL (32-36); Mean Corpuscular Hgb 27.6 pg (27.0-32.0); Mean Platelet Vol. 9.9 fl (6.2-12.0); Monocyte# 0.69 X10^3/uL; Monocyte% 7.1 % (0-10); NRBC Flagged by Analyzer 0 % (0-5); Neutrophil # 7.06 X10^3/uL (2.7-7.7); Neutrophil % 72.4 % (47-70); Platelet Count 428 K/mm3 (150-450); RBC Distribution Width CV 14.7 % (11.6-14.6); Red Blood Count 5.44 M/mm3 (4.2-5.4); White Blood Count 9.8 K/mm3 (4.4-11.0)
[2020-11-19 11:54] LABS: AST(SGOT) 8 U/L (15-37); Alanine Aminotransfer ALT/SGPT 25 U/L (13-56); Albumin, Serum 3.8 g/dL (3.2-5.0); Alkaline Phosphatase 102 U/L (45-117); Anion Gap 13 (5-15); BUN 9 mg/dL (7-18); BUN/Creat Ratio 8.3 RATIO (10-20); Calcium,Total 9.3 mg/dL (8.5-10.1); Chloride 99 mmol/L (98-107); Creatinine, Serum 1.08 mg/dL (0.55-1.02); EST Glomerular Filtration Rate 62 mL/min (>60); Est Glom Filt Rate - Afr Amer 75 mL/min (>60); Estimated Creatinine Clearance 66.05 ml/min; Glucose 448 mg/dL (74-106); Lipase 151 U/L (73-393); Potassium 3.6 mmol/L (3.5-5.1); Protein, Total 7.8 g/dL (6.4-8.2); Sodium Level 131 mmol/L (136-145)
[2020-11-19] MEDS: 0.9% Normal Saline 1,000 ML 999 ML IV (12:29)
--- NOTE | 2020-11-19 13:07 | HP.PCM_ITS ---
Problem List (1) Diabetes mellitus type 2 in obese Status: Acute (2) Hypertension Status: Chronic (3) Sleep apnea Status: Chronic History of Present Illness Date of Admission: 11/19/20 Chief Complaint: Hyperglycemia and symptoms of nausea for 2 days The patient is a 35 year old F with history of type 2 diabetes mellitus, obesity came to ER with hyperglycemia and nausea. She also has decreased appetite, thirsty, dry mouth, dark urine and nonspecific abdominal pain. She states she has abdominal pain for about few months and sometimes associated with constipation. She had a scheduled EGD and colonoscopy with Dr. Dawson on Thursday, 11/21. Besides that, she has also history of hypertension and obstructive sleep apnea and uses CPAP. Patient states she also has recent food allergy and completed about 10 days of prednisone, 2 weeks ago. She follows pharmacist Arlette for her diabetes. In ED, her vitals were stable. Initial labs shows glucose 448 in BMP, 469 and Accu-Chek with a small acetone. Bicarb 19, anion gap 13. UA negative for nitrite, LE 25 WBC 0-5. Denies any dysuria symptoms. Past Medical History Past Medical History (Chronic Problems): Chronic Problems Hypertension (Chronic) Sleep apnea (Chronic) Allergies celecoxib [From Celebrex] Allergy (Verified 11/19/20 10:26) Swelling lisinopril Allergy (Verified 11/19/20 10:26) Chest tightness meperidine HCl [From Demerol] Allergy (Verified 11/19/20 10:26) Unknown Penicillins Allergy (Verified 11/19/20 10:26) Rash tramadol Allergy (Verified 11/19/20 10:26) Rash sucralfate Adverse Reaction (Mild, Verified 11/19/20 10:26) swelling duloxetine [From Cymbalta] Adverse Reaction (Verified 11/19/20 10:26) headaches steri strips Allergy (Uncoded 11/19/20 10:26) Rash Home Medications: Ambulatory Orders Medication Instructions Recorded Fluticasone Propionate 2 spry IH DAILY 06/09/19 Cetirizine HCl [Zyrtec] 10 mg PO DAILY 06/01/20 Metformin HCl [Metformin HCl ER] 500 mg PO BID 06/01/20 Sumatriptan Succinate [Imitrex] 100 mg PO .X1 PRN 06/01/20 omeprazole 40 mg capsule,delayed 40 mg PO BID 07/04/20 release ondansetron 4 mg disintegrating 4 mg TRANSLINGUAL PRN PRN tab 07/04/20 tablet DiphenhydrAMINE [Benadryl] 25 mg PO BID PRN PRN #10 cap 11/05/20 Colestipol HCl 1 gm PO BID 11/16/20 Fluoxetine [Prozac] 20 mg PO DAILY 11/16/20 Losartan Potassium [Cozaar] 50 mg PO DAILY 11/16/20 Nitrofurantoin Monohyd/M-Cryst 100 mg PO BID 11/16/20 [Macrobid 100 mg Capsule] Surgical History: noncontributory, - - x3, uterine ablation Psychiatric History: 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 Denies: Chills, Fever HEENT: Reports: Sinus Drainage. Denies: Head Aches, Sinus Congestion Cardiovascular: Denies: Chest Pain, Palpitations Respiratory: Denies: Cough, Shortness of breath at rest, Sputum production Gastrointestinal: Reports: Abdominal Pain, Constipation, Nausea. Denies: Vomiting Genitourinary: Reports: -. Denies: Dysuria, Frequency Musculoskeletal: Denies: Joint Pain, Joint Tenderness Skin: Denies: Rash, Wounds Neurological: Denies: Numbness, Tingling, Focal weakness Psychiatric: Reports: Anxiety. Denies: Depression, Homicidal Ideations, Suicidal Ideations Hematologic/ Lymphatic: Denies: Easy Bruising, Easy Bleeding VTE Information - Inpt Only VTE Present on Admission: No VTE Mechan Device Prophylaxis: None VTE Pharm Prophylaxis ordered?: Yes Patient Problems: Active and Suspected Problems Diabetes mellitus type 2 in obese (Acute) Objective: Physical exam General: Alert, Oriented x3, Cooperative, morbid obesity, BMI 51 kg/m? HEENT: Atraumatic, PERRLA, EOMI, Normocephalic Oral: Oral mucosa dry. No Gingival or Mucosal Lesions/ Ulcerations Neck: Supple, No JVD, Negative Carotid Bruits Lungs: Air entry diminished in bilateral lung bases. No crepitation/rhonchi Cardiovascular: Regular rate, Regular Rhythm, Normal S1, Normal S2, No murmurs Abdomen: Bowel Sounds Present, Soft, mild diffuse, nonspecific tenderness. No rebound tenderness. Non-Distended : No renal angle tenderness. No suprapubic tenderness. Extremities: No edema, Capillary Refill Less than 3 Seconds Skin: No rashes, No breakdown Musculoskeletal: No Tenderness to Palpation of Joints or Extremities Neurological: Cranial nerves II-XII grossly intact, Deep Tendon Reflexes 2+/4 and Symmetrical, Neuro grossly intact Psych/Mental Status: Normal Affect, Appropriate. - Physical Exam Vitals/I&O's: Vital Signs Temp Pulse Resp BP Pulse Ox 97.2 F L 84 22 H 111/83 H 100 11/19/20 10:22 11/19/20 12:53 11/19/20 12:53 11/19/20 12:53 11/19/20 12:53 Oxygen Delivery Method Room Air Weight: 305 lb 12.498 oz Body Mass Index (BMI) 50.8 Finger Stick Blood Glucose 469 Intake and Output for Last 24 Hours 11/17/20 11/18/20 11/19/20 23:59 23:59 23:59 Intake Total 1000 / 1000 Balance 1000 / 1000 Laboratory Results 11/19/20 10:33: POC Glucose 469 H* 11/19/20 11:08: Urine Test Negative 11/19/20 11:08: Urine Color Yellow, Urine Clarity Clear, Urine pH 5.0, Ur Specific Fowler 1.010, Urine Protein Negative, Urine Glucose (UA) 1000 H, Urine Ketones 150 H, Urine Occult Blood Negative, Urine Nitrite Negative, Urine Bilirubin Negative, Urine Urobilinogen Normal, Ur Leukocyte Esterase 25 H, Urine RBC 0 SEEN, Urine WBC 0-5 SEEN, Ur Squamous Epith Cells 0-5 SEEN, Urine Bacteria RARE, Urine Mucus 0 SEEN, Urine Yeast 1+ 11/19/20 11:20: WBC 9.8, RBC 5.44 H, Hgb 15.0, Hct 43.0, MCV 79.0 L, MCH 27.6, MCHC 34.9, RDW Std Deviation 42.0, RDW Coeff of Sanchez 14.7 H, Plt Count 428, MPV 9.9, Immature Gran % (Auto) 0.300, Neut % (Auto) 72.4 H, Lymph % (Auto) 18.7 L, Luna % (Auto) 7.1, Eos % (Auto) 0.9, Baso % (Auto) 0.6, Absolute Neuts (auto) 7.1, Absolute Lymphs (auto) 1.82, Nucleated RBC % 0 11/19/20 11:20: Sodium 131 L, Potassium 3.6, Chloride 99, Carbon Dioxide 19.0 L, Anion Gap 13, BUN 9, Creatinine 1.08 H, Estim Creat Clear Calc 66.05, Est GFR (MDRD) Af Amer 75, Est GFR (MDRD) Non-Af 62, BUN/Creatinine Ratio 8.3 L, Glucose 448 H, Calcium 9.3, Total Bilirubin 0.90, AST 8 L, ALT 25, Alkaline Phosphatase 102, Total Protein 7.8, Albumin 3.8, Globulin 4.0, Albumin/Globulin Ratio 1.0, Lipase 151 11/19/20 11:20: Acetone Level SMALL H Current Medications Dextrose (Dextrose 50%-Water 25 Gm/50 Ml Disp.Syrin) 0 gm IV X1 PRN; Protocol PRN Reason: Hypoglycemia Protocol Insulin Human Lispro 100 unit/ (Sodium Chloride) 100 mls @ 13.87 mls/hr CONT INF .Q7H13M [facility]; Protocol Stop: 11/19/20 20:12 Assessment/Plan All Active Problems Diabetes mellitus type 2 in obese (Acute) This 35-year-old female with history of gestational diabetes and recent diagnosis of diabetes mellitus type 2 came to ED with nonspecific symptoms of abdominal pain, nausea, generalized weakness, elevated blood sugar and labs consistent with mild DKA. 1. DKA: Patient is being admitted in ICU. Patient is on second liter of normal saline bolus in ED. IV fluid as per DKA protocol. On regular insulin IV. BMP every 4 hourly x2. Serum acetone and bicarbonate more than 18, discontinue IV insulin with overlap of subcutaneous insulin. 2. Hypertension: Currently blood pressure is low. Hold anti-hypertensive medication for now. 3. Obstructive sleep apnea: On CPAP 4. Morbid obesity: BMI 51. Weight loss counseling done. 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 5. Nonspecific abdominal pain for last 3 months possible IBS?C or due to DKA: Patient has scheduled EGD and colonoscopy with Dr. Dawson on 11/21. 6. Possible food allergy, allergic rhinitis/sinusitis, headache, possible migraine headache: Patient on Zyrtec, fluticasone at home. VTE prophylaxis: Moderate to high risk because of morbid obesity: Lovenox 30 mg every 12 hourly Inpatient E&M: 25638 Init Hosp L3
[2020-11-19 13:16] LABS: Bedside Glucose 348 mg/dL (70-110)
--- NOTE | 2020-11-19 13:32 | EKG12_ITS ---
Test Reason : HYPERGLYCEMIA Blood Pressure : / mmHG Vent. Rate : 065 BPM Atrial Rate : 065 BPM P-R Int : 146 ms QRS Dur : 074 ms QT Int : 418 ms P-R-T Axes : 023 005 -05 degrees QTc Int : 434 ms Normal sinus rhythm Normal ECG Confirmed by DASH FRIEND, NITESH ([id number]), editor dictionary KAUSHIK GONSALES ([id number]) on 11/21/2020 9:33:25 AM Referred By: ESTEPHANIA Confirmed By:NITESH BOWLING MD
--- NOTE | 2020-11-19 13:46 | ED.RN ---
report called to Claudine SHEPARD in ICU
[2020-11-19] MEDS: 0.9% Normal Saline 1,000 ML 250 ML IV (14:45)
[2020-11-19 15:40] LABS: Bedside Glucose 300 mg/dL (70-110)
[2020-11-19 15:40] LABS: Bedside Glucose 143 mg/dL (70-110)
--- NOTE | 2020-11-19 15:46 | CASEMGMT ---
RN CM POWER PLANT INSPECTOR CM to room to meet with patient for initial transition planning/care coordination assessment. RN ELEONORA introduced self and role at [facility]. Pt voices understanding and consents to assessment at this time. Pt resting in bed in no distress at this time. Pt is A/O at this time and answers all questions appropriately. Care providers, pharmacy, and demographics verified/updated at this time. PCP: Dr Licona Specialists: Chalk Machine Operator @ [facility], Dr Dawson--surgeon. Has EGD and colonoscopy scheduled for this 11/21. Pt does not have an adhesive bandage machine operator. Pt states she had an appt scheduled today with pharmacist, Tiffani Lozano (sp?) @ [facility] office re: her diabetes, but was not able to make it d/t hospitalization. Preferred Pharmacy: [facility] Insurance: [employer] Prescription Benefit: Yes Living Will/HPOA: States does not have LW or HCPOA . Interested in more information but states does not want to talk with SW at this time to complete paperwork. Provided information on advanced directives and given Social Service rac card with number to call if chooses in the future to utilize [facility] social work for advanced directive completion. LNOK: , Yared. Living Arrangements: Lives with her in one-story home w/one step to enter. They have 3 kids that live with them. Independent. Transportation: Pt states drives self and states no transportation concerns at this time. also drives. DME: States has the following DME: glucometer, CPAP Pt states no need for further DME at this time. HHC/SNF: No history of either. No needs identified. Pt wishes to return home and states has no concerns with going home at time of discharge. Pt provided with [facility] rac card/information. CM to follow for any discharge planning/needs. Pt voices no concerns/needs at this time. Advised pt to ask for CM if any questions/concerns/needs arise. Voices understanding. PLAN: Home w/spousal support and discharge plans in place. Rosaline MARR RN, CM
[2020-11-19 16:06] LABS: Bedside Glucose 93 mg/dL (70-110)
[2020-11-19 16:43] LABS: Anion Gap 8 (5-15); BUN 6 mg/dL (7-18); BUN/Creat Ratio 7.5 RATIO (10-20); Calcium,Total 8.4 mg/dL (8.5-10.1); Chloride 111 mmol/L (98-107); EST Glomerular Filtration Rate 87 mL/min (>60); Est Glom Filt Rate - Afr Amer 105 mL/min (>60); Estimated Creatinine Clearance 89.16 ml/min; Glucose 107 mg/dL (74-106); Sodium Level 141 mmol/L (136-145)
[2020-11-19 17:50] LABS: Bedside Glucose 152 mg/dL (70-110)
[2020-11-19 18:05] LABS: Bedside Glucose 180 mg/dL (70-110)
[2020-11-19 19:05] LABS: Bedside Glucose 206 mg/dL (70-110)
[2020-11-19 19:46] LABS: Bedside Glucose 218 mg/dL (70-110)
[2020-11-19] MEDS: Potassium Chloride Oral Tablet 20 MEQ 40 MEQ PO ×2 (20:24→22:18)
[2020-11-19] MEDS: proMETHazine 25 MG/ML Syringe 12.5 MG IV (20:26)
[2020-11-19] MEDS: 0.9% Saline Lock 10 ML Syringe IV (20:27)
[2020-11-19 20:51] LABS: Anion Gap 8 (5-15); BUN 5 mg/dL (7-18); BUN/Creat Ratio 6.4 RATIO (10-20); Calcium,Total 8.3 mg/dL (8.5-10.1); Chloride 110 mmol/L (98-107); Creatinine, Serum 0.78 mg/dL (0.55-1.02); EST Glomerular Filtration Rate 90 mL/min (>60); Est Glom Filt Rate - Afr Amer 109 mL/min (>60); Estimated Creatinine Clearance 91.45 ml/min; Glucose 205 mg/dL (74-106); Potassium 3.4 mmol/L (3.5-5.1); Sodium Level 140 mmol/L (136-145)
[2020-11-19] MEDS: 0.45% Normal Saline 1,000 ML 100 ML IV (22:17)
[2020-11-19] MEDS: Insulin Lispro 100 UNIT/ML INSULN.PEN SC (22:18)
[2020-11-19] MEDS: Enoxaparin 30 MG/0.3 ML Syringe SC (22:20)
[2020-11-19] MEDS: Pantoprazole Sodium 40 MG Tablet PO (22:21)
[2020-11-19 22:31] LABS: Bedside Glucose 241 mg/dL (70-110)
[2020-11-20] VITALS (7 sets, daily range): BP systolic 123–128; BP diastolic 67–75; PULSE 69–89; RESP 14–22; TEMP 36.4–36.7; O2SAT 96–98
[2020-11-20 03:59] LABS: Absolute Lymphocyte Count 2.72 X10^3/uL (0.83-4.51); Absolute Neutrophil Count 5.5 X10^3/uL (2.0-7.7); Basophil# 0.04 X10^3/uL; Basophil% 0.4 % (0-1); Eosinophil# 0.11 X10^3/uL; Eosinophils% 1.2 % (0-5); Hematocrit 38.8 % (37-47); Hemoglobin 13.2 g/dL (12.0-15.0); Lymphocyte # 2.72 X10^3/ul (4.0); Lymphocyte % 29.7 % (19-41); Mean Corpuscular Hgb 27.3 pg (27.0-32.0); Mean Corpuscular Volume 80.3 fL (81-99); Mean Platelet Vol. 9.7 fl (6.2-12.0); Monocyte# 0.76 X10^3/uL; Monocyte% 8.3 % (0-10); NRBC Flagged by Analyzer 0 % (0-5); Neutrophil # 5.49 X10^3/uL (2.7-7.7); Platelet Count 391 K/mm3 (150-450); RBC Distribution Width CV 15.1 % (11.6-14.6); RBC Distribution Width SD 43.6 fl (35.1-43.9); Red Blood Count 4.83 M/mm3 (4.2-5.4); White Blood Count 9.2 K/mm3 (4.4-11.0)
[2020-11-20 04:24] LABS: Anion Gap 9 (5-15); BUN 6 mg/dL (7-18); BUN/Creat Ratio 7.4 RATIO (10-20); Calcium,Total 8.1 mg/dL (8.5-10.1); Chloride 106 mmol/L (98-107); Creatinine, Serum 0.82 mg/dL (0.55-1.02); EST Glomerular Filtration Rate 85 mL/min (>60); Est Glom Filt Rate - Afr Amer 103 mL/min (>60); Estimated Creatinine Clearance 86.99 ml/min; Glucose 346 mg/dL (74-106); Magnesium 1.7 mg/dL (1.6-2.6); Potassium 4.3 mmol/L (3.5-5.1); Sodium Level 135 mmol/L (136-145)
[2020-11-20] MEDS: Insulin Lispro 100 UNIT/ML INSULN.PEN SC ×2 (06:35→11:22)
[2020-11-20 06:40] LABS: Bedside Glucose 344 mg/dL (70-110)
[2020-11-20 07:20] LABS: Hemoglobin A1c 10.7 % (3.8-5.6)
[2020-11-20] MEDS: Enoxaparin 30 MG/0.3 ML Syringe SC (08:58)
[2020-11-20] MEDS: Pantoprazole Sodium 40 MG Tablet PO (08:59)
[2020-11-20] MEDS: Losartan Potassium 50 MG Tablet PO (08:59)
[2020-11-20] MEDS: 0.45% Normal Saline 1,000 ML 100 ML IV (09:19)
--- NOTE | 2020-11-20 09:20 | DCINST_ITS ---
- Discharge Diagnoses Current Active Problems: Current Active and Chronic Problems Hypertension (Chronic) Sleep apnea (Chronic) Diabetes mellitus type 2 in obese (Acute) You will use the following diet at home:: Calorie/Carbohydrate Controlled (specify 1200, 1400, etc) - Carb controlled diet Your food should be the consistency of: Regular Your liquids should be the consistency of: Regular/Thin Discharge Activity: Return to Normal Activity Call your doctor if you observe: Fever of 101 or Higher, Numbness or Tingling, Change in Color, Inability to urinate, Inability to have a bowel movement, Using more than one pad per hour, Shortness of breath, Dizziness, Fainting spells, Swelling in the ankles, Chest pain, Prolonged hiccoughing, Increased palpitations (irregular heartbeat), Calf discomfort Additional Instructions: Follow-up for dietitian/book or script editor for carb controlled diet, insulin injection and loss of weight. Allergies/Adverse Reactions: Allergies celecoxib [From Celebrex] Allergy (Verified 11/19/20 10:26) Swelling lisinopril Allergy (Verified 11/19/20 14:48) cough Penicillins Allergy (Verified 11/19/20 14:48) Hives sucralfate Allergy (Verified 11/19/20 14:48) Rash tramadol Allergy (Verified 11/19/20 14:48) Rash/vomiting duloxetine [From Cymbalta] Adverse Reaction (Verified 11/19/20 10:26) headaches meperidine HCl [From Demerol] Adverse Reaction (Verified 11/19/20 14:48) hypotension msg Allergy (Uncoded 11/19/20 14:48) Food Allergy steri strips Allergy (Uncoded 11/19/20 14:48) Rash/swelling Medications to take at Discharge Fluticasone Propionate 2 spry IH BID 06/09/19 Cetirizine HCl [Zyrtec] 10 mg PO DAILY 06/01/20 Sumatriptan Succinate [Imitrex] 100 mg PO .X1 PRN 06/01/20 omeprazole 40 mg capsule,delayed release 40 mg PO BID 07/04/20 DiphenhydrAMINE [Benadryl] 25 mg PO BID PRN PRN #10 cap 11/05/20 Fluoxetine [Prozac] 20 mg PO DAILY 11/16/20 Losartan Potassium [Cozaar] 50 mg PO DAILY 11/16/20 Cyclobenzaprine HCl 10 mg PO Q8H PRN 11/19/20 Epinephrine [Epipen] 0.3 mg IJ X1 11/19/20 Hydrocodone/Acetaminophen [Hydrocodone-Acetamin 5-325 mg] 1 ea PO Q6H PRN 11/19/20 Colestipol HCl 1 gm PO BID #0 11/20/20 Insulin Glargine [Lantus SoloStar Pen] 20 units SC BID #1 vial 11/20/20 Insulin Lispro [Humalog KwikPen] See Protocol SC ACHS insuln.pen 11/20/20 Insulin Lispro [Humalog] 20 unit SQ TIDCM #1 vial 11/20/20 Metformin HCl [Metformin HCl ER] 500 mg PO BID #0 11/20/20 Nystatin [Mycostatin] 1 applic TOPICAL TID #1 tube 11/20/20 Ondansetron [Ondansetron Odt] 4 mg TRANSLINGUAL Q6H PRN PRN #0 tab 11/20/20 The following prescriptions were given: Insulin Lispro [Humalog] 20 unit SQ TIDCM #1 vial Transmission Status: Pending to [facility] Insulin Glargine [Lantus SoloStar Pen] 20 units SC BID #1 vial Transmission Status: Pending to [facility] Nystatin [Mycostatin] 1 applic TOPICAL TID #1 tube Transmission Status: Pending to [facility] Primary Care Physician: Chris Licona MD [Primary Care Provider] - Please follow up with your Primary Care Physician in: In 2 weeks Test Results: Test results from this visit will be discussed in further detail at your follow- up appointment, if applicable.
--- NOTE | 2020-11-20 09:21 | DS.PCM_ITS ---
Discharge Date and Diagnosis - Problem List Patient Problems: Active and Suspected Problems Diabetes mellitus type 2 in obese (Acute) Date of Admission: 11/19/20 Date of Discharge: 11/20/20 - Primary Discharge Diagnosis Acute Problems: Active Problems Diabetes mellitus type 2 in obese (Acute) - Secondary Discharge Diagnosis Chronic Problems: Chronic Problems Hypertension (Chronic) Sleep apnea (Chronic) Hospital Course and Treatment Operations: - - Repeat low transverse section Via Pfannenstiel skin incision with bilateral salpingectomy Summary of Care Provided: The patient is a 35 year old F with history of diabetes mellitus type 2, progressed from gestational diabetes was admitted with abdominal pain, nausea, generalized weakness elevated blood sugar and serum acetone consistent with mild DKA. Patient was admitted in ICU and treated with normal saline bolus and insulin drip as per DKA protocol. Patient also required antiemetic for control of nausea and vomiting. Insulin drip was changed to subcutaneous intermittent insulin. Diabetic education about carb diet, insulin injection was done. Patient has Gluc[place] at home and is to check twice daily. B glucose profile was in 200s yesterday on insulin drip which increased about 350 on intermittent insulin. Dose of insulin increased to Lantus 20 units subcutaneous twice daily and Humalog insulin 20 units 3 times daily with meals along with sliding scale insulin. Patient has nonspecific abdominal pain for 3 months probably IBS?C. Patient is scheduled EGD and colonoscopy with Dr. Dawson on 11/21 but I think it need to be postponed as patient is still recovering from DKA. Patient also had nonspecific food allergy, allergic rhinitis, headache, possible migraine headache. Patient has morbid obesity and weight loss counseling was done. Discharge medication reconciliation done. Discharge follow-up instructions completed. Discharge process discussed with the patient and all questions were answered to patient's satisfaction. Patient was admitted as inpatient but was discharged because of sooner recovery than expected at time of admission. Prescription for insulin, lancets and insulin needles supplies given. Total time spent, exact 35 minutes on discharge meds reconciliation, examination, coordination of care with nurses and ancillary staff, review of imaging and blood test and discussion with the patient on follow-up instructions Patient Problems: Active and Suspected Problems Diabetes mellitus type 2 in obese (Acute) Objective: Patient nausea is better. Patient is started on diet last evening. Insulin drip was changed to intermittent subcutaneous insulin. Patient was dehydrated therefore IV fluid was continued. Patient has history of chronic abdominal pain Physical exam General: Alert, Oriented x3, Cooperative, morbid obesity, BMI 51 kg/m? HEENT: Atraumatic, PERRLA, EOMI, Normocephalic Oral: Oral mucosa dry. No Gingival or Mucosal Lesions/ Ulcerations Neck: Supple, No JVD, Negative Carotid Bruits Lungs: Air entry diminished in bilateral lung bases. No crepitation/rhonchi Cardiovascular: Regular rate, Regular Rhythm, Normal S1, Normal S2, No murmurs Abdomen: Bowel Sounds Present, Soft, no tenderness or rebound tenderness. Non- Distended : No renal angle tenderness. No suprapubic tenderness. Extremities: No edema, Capillary Refill Less than 3 Seconds Skin: No rashes, No breakdown Musculoskeletal: No Tenderness to Palpation of Joints or Extremities Neurological: Cranial nerves II-XII grossly intact, Deep Tendon Reflexes 2+/4 and Symmetrical, Neuro grossly intact Psych/Mental Status: Normal Affect, Appropriate. - Physical Exam Vitals/I&O's: Vital Signs Temp Pulse Resp BP Pulse Ox 98.1 F 71 22 H 123/67 H 97 11/20/20 04:00 11/20/20 06:59 11/20/20 04:00 11/20/20 04:00 11/20/20 04:00 Oxygen Delivery Method Room Air Weight: 305 lb 1.916 oz Body Mass Index (BMI) 50.1 Finger Stick Blood Glucose 206 Intake and Output for Last 24 Hours 11/18/20 11/19/20 11/20/20 23:59 23:59 23:59 Intake Total 3156.60 / 3456.60 2000 / 1999 Output Total 700 / 700 Balance 3156.60 / 3456.60 1300 / 1300 Laboratory Results 11/19/20 10:33: POC Glucose 469 H* 11/19/20 11:08: Urine Test Negative 11/19/20 11:08: Urine Color Yellow, Urine Clarity Clear, Urine pH 5.0, Ur Specific Hardwick 1.010, Urine Protein Negative, Urine Glucose (UA) 1000 H, Urine Ketones 150 H, Urine Occult Blood Negative, Urine Nitrite Negative, Urine Bi lirubin Negative, Urine Urobilinogen Normal, Ur Leukocyte Esterase 25 H, Urine RBC 0 SEEN, Urine WBC 0-5 SEEN, Ur Squamous Epith Cells 0-5 SEEN, Urine Bacteria RARE, Urine Mucus 0 SEEN, Urine Yeast 1+ 11/19/20 11:20: WBC 9.8, RBC 5.44 H, Hgb 15.0, Hct 43.0, MCV 79.0 L, MCH 27.6, MCHC 34.9, RDW Std Deviation 42.0, RDW Coeff of Sanchez 14.7 H, Plt Count 428, MPV 9.9, Immature Gran % (Auto) 0.300, Neut % (Auto) 72.4 H, Lymph % (Auto) 18.7 L, Kern % (Auto) 7.1, Eos % (Auto) 0.9, Baso % (Auto) 0.6, Absolute Neuts (auto) 7.1, Absolute Lymphs (auto) 1.82, Nucleated RBC % 0 11/19/20 11:20: Sodium 131 L, Potassium 3.6, Chloride 99, Carbon Dioxide 19.0 L, Anion Gap 13, BUN 9, Creatinine 1.08 H, Estim Creat Clear Calc 66.05, Est GFR (MDRD) Af Amer 75, Est GFR (MDRD) Non-Af 62, BUN/Creatinine Ratio 8.3 L, Glucose 448 H, Calcium 9.3, Total Bilirubin 0.90, AST 8 L, ALT 25, Alkaline Phosphatase 102, Total Protein 7.8, Albumin 3.8, Globulin 4.0, Albumin/Globulin Ratio 1.0, Lipase 151 11/19/20 11:20: Acetone Level SMALL H 11/19/20 11:20: Magnesium 2.0 11/19/20 13:12: POC Glucose 348 H 11/19/20 14:36: POC Glucose 300 H 11/19/20 15:32: POC Glucose 143 H 11/19/20 16:00: Sodium 141, Potassium 3.0 L, Chloride 111 H, Carbon Dioxide 22.0, Anion Gap 8, BUN 6 L, Creatinine 0.80, Estim Creat Clear Calc 89.16, Est GFR (MDRD) Af Amer 105, Est GFR (MDRD) Non-Af 87, BUN/Creatinine Ratio 7.5 L, Glucose 107 H, Calcium 8.4 L 11/19/20 16:03: POC Glucose 93 11/19/20 16:55: POC Glucose 152 H 11/19/20 17:40: Acetone Level SMALL H 11/19/20 18:02: POC Glucose 180 H 11/19/20 18:59: POC Glucose 206 H 11/19/20 19:43: POC Glucose 218 H 11/19/20 20:20: Sodium 140, Potassium 3.4 L, Chloride 110 H, Carbon Dioxide 22.0, Anion Gap 8, BUN 5 L, Creatinine 0.78, Estim Creat Clear Calc 91.45, Est GFR (MDRD) Af Amer 109, Est GFR (MDRD) Non-Af 90, BUN/Creatinine Ratio 6.4 L, Glucose 205 H, Calcium 8.3 L 11/19/20 22:12: POC Glucose 241 H 11/20/20 03:55: WBC 9.2, RBC 4.83, Hgb 13.2, Hct 38.8, MCV 80.3 L, MCH 27.3, MCHC 34.0, RDW Std Deviation 43.6, RDW Coeff of Sanchez 15.1 H, Plt Count 391, MPV 9.7, Immature Gran % (Auto) 0.400, Neut % (Auto) 60.0, Lymph % (Auto) 29.7, Kern % (Auto) 8.3, Eos % (Auto) 1.2, Baso % (Auto) 0.4, Absolute Neuts (auto) 5.5, Absolute Lymphs (auto) 2.72, Nucleated RBC % 0 11/20/20 03:55: Sodium 135 L, Potassium 4.3, Chloride 106, Carbon Dioxide 20.0 L , Anion Gap 9, BUN 6 L, Creatinine 0.82, Estim Creat Clear Calc 86.99, Est GFR (MDRD) Af Amer 103, Est GFR (MDRD) Non-Af 85, BUN/Creatinine Ratio 7.4 L, Glucose 346 H, Calcium 8.1 L, Phosphorus 3.0, Magnesium 1.7 11/20/20 03:55: Hemoglobin A1c 10.7 H 11/20/20 06:34: POC Glucose 344 H Current Medications Dextrose (Dextrose 50%-Water 25 Gm/50 Ml Disp.Syrin) 0 gm IV X1 PRN; Protocol PRN Reason: Hypoglycemia Protocol Dextrose (Dextrose 50%-Water 25 Gm/50 Ml Disp.Syrin) 0 gm IV X1 PRN; Protocol PRN Reason: Hypoglycemia Enoxaparin Sodium (Enoxaparin 30 Mg/0.3 Ml Syringe) 30 mg SC BID STEFANIE Last Admin: 11/20/20 08:58 Dose: 30 mg Documented by: Glucagon (Glucagon 1 Mg/Ml Syringe) 1 mg IM .X1 PRN PRN Reason: Hypoglycemia Sodium Chloride () 1,000 mls @ 100 mls/hr IV .Q10H [facility] Last Admin: 11/20/20 09:19 Dose: 100 mls/hr Documented by: Insulin Glargine (Insulin Glargine 100 Units/Ml Pen) 15 units SC BREAKFAST [facility] Last Admin: 11/20/20 08:59 Dose: 15 u Documented by: Insulin Human Lispro (Insulin Lispro 100 Unit/Ml Insuln.Pen) 0 unit SC ACHS [facility]; Protocol Last Admin: 11/20/20 06:35 Dose: 8 unit Documented by: Insulin Human Lispro (Insulin Lispro 100 Unit/Ml Insuln.Pen) 10 unit SC TIDAC [facility] Losartan Potassium (Losartan Potassium 50 Mg Tablet) 50 mg PO DAILY [facility] Last Admin: 11/20/20 08:59 Dose: 50 mg Documented by: Nystatin (Nystatin Ointment) 1 applic TOPICAL TID [facility]; Protocol Pantoprazole Sodium (Pantoprazole Sodium 40 Mg Tablet) 40 mg PO BID [facility] Last Admin: 11/20/20 08:59 Dose: 40 mg Documented by: Promethazine HCl (Promethazine 25 Mg/Ml Syringe) 12.5 mg IV Q6H PRN PRN PRN Reason: NAUSEA/VOMITING Last Admin: 11/19/20 20:26 Dose: 12.5 mg Documented by: Sodium Chloride (0.9% Saline Lock 10 Ml Syringe) 10 - 40 ml IV UD PRN PRN Reason: SALINE FLUSH Last Admin: 11/19/20 20:27 Dose: 30 ml Documented by: Home Medications: Medications to take at Discharge Fluticasone Propionate 2 spry IH BID 06/09/19 Cetirizine HCl [Zyrtec] 10 mg PO DAILY 06/01/20 Sumatriptan Succinate [Imitrex] 100 mg PO .X1 PRN 06/01/20 omeprazole 40 mg capsule,delayed release 40 mg PO BID 07/04/20 DiphenhydrAMINE [Benadryl] 25 mg PO BID PRN PRN #10 cap 11/05/20 Fluoxetine [Prozac] 20 mg PO DAILY 11/16/20 Losartan Potassium [Cozaar] 50 mg PO DAILY 11/16/20 Cyclobenzaprine HCl 10 mg PO Q8H PRN 11/19/20 Epinephrine [Epipen] 0.3 mg IJ X1 11/19/20 Hydrocodone/Acetaminophen [Hydrocodone-Acetamin 5-325 mg] 1 ea PO Q6H PRN 11/19/20 Colestipol HCl 1 gm PO BID #0 11/20/20 Insulin Glargine [Lantus SoloStar Pen] 20 units SC BID #1 vial 11/20/20 Insulin Lispro [Humalog KwikPen] See Protocol SC ACHS insuln.pen 11/20/20 Insulin Lispro [Humalog] 20 unit SQ TIDCM #1 vial 11/20/20 Metformin HCl [Metformin HCl ER] 500 mg PO BID #0 11/20/20 Nystatin [Mycostatin] 1 applic TOPICAL TID #1 tube 11/20/20 Ondansetron [Ondansetron Odt] 4 mg TRANSLINGUAL Q6H PRN PRN #0 tab 11/20/20 Following Prescriptions Were Given to Patient: Insulin Lispro [Humalog] 20 unit SQ TIDCM #1 vial Transmission Status: Received by [facility] Insulin Glargine [Lantus SoloStar Pen] 20 units SC BID #1 vial Transmission Status: Received by [facility] Nystatin [Mycostatin] 1 applic TOPICAL TID #1 tube Transmission Status: Received by [facility] Other Amb Orders: Glucometer Location: None Selected Novofine Autocover 30G Needle Location: None Selected Primary Care Physician: Chris Licona MD [Primary Care Provider] - Medical Necessity - Tobacco Use Smoking Status: Current every day smoker Tobacco Use: Cigarettes Meaningful Use Info Meaningful Use Diagnoses (Choose all that apply): None applicable Inpatient E&M: [id number] [facility]
--- NOTE | 2020-11-20 10:01 | CASEMGMT ---
RN CM Note: Intro role of CM to patient in room. Patient very pleasant and willing to discuss dc plan with diabetes. Patient is able to follow up with her physician. Pt does not have an liquor gallery operator- recommended she speak with her physician re: referral if needed. Discussed dc on injectable insulin and teaching per nursing. Recommended patient call for Diabetic clinic @ [facility] for ongoing teaching and to contact her PCP's nurse if questions arise on dc. Pt is agreeable to have RN CM contact the PCP nurse for follow up appointment. -Call to Dr. Licona's office. Spoke with Peggy Bailye RN who will have patient enrolled in diabetic program with PR SPECIALIST, pharmacist, SW and multiple cut off saw operator. Appt for first f/u visit is November 28, 2020 @ 11:20. Reviewed with patient and encouraged her to go to this appointment. Patient states she will be able to drive to this appointemnt. -nursing updated. Rebeka SCHNEIDERN RN ACM
--- NOTE | 2020-11-20 10:24 | CASEMGMT ---
SW met w/pt in room, was informed by nursing staff of comments pt's mother had made expressing concern about pt not taking care of herself. When SW entered room, pt holding emesis bag and stating not feeling well. SW asked pt about her mental health, pt denies being depressed but does state has anxiety at times. She does go on to say she has been feeling ill and not getting up. She states has three children, 15, 7, and 3. She states that they are fine, the 15 and 7 year old are in school, the 3 year old is home. Pt is , lives home w/ and three children. SW inquired about her mother, if she is supportive as she has been calling in to check on pt. Pt states her mother is not being helpful right now, just is playing a role. She states her mother has been calling in and she has told nursing to just let her know what is going on so she will stop texting the pt. SW asked pt about counseling. Pt is connected to [facility], but has not been going to appointments due to not feeling well. SW asked about virtual appointments, pt states this is not helpful for her and she prefers to go in when able. Pt is not interested in any additional referrals at this time for mental health. CM is assisting in getting pt set up w/resources through [facility]. SW remains available should pt want to speak w/SW further when she is feeling better. BHARAT Forbes
[2020-11-20] MEDS: Nystatin Ointment 1 APPLIC TOPICAL ×2 (10:35→16:09)
[2020-11-20] MEDS: proMETHazine 25 MG/ML Syringe 12.5 MG IV (10:35)
[2020-11-20] MEDS: Insulin Lispro 100 UNIT/ML INSULN.PEN 10 UNIT SC (11:22)
[2020-11-20 11:30] LABS: Bedside Glucose 346 mg/dL (70-110)
== END 2020-11-20 17:25 | disposition home or self-care (01) | DRG 420 ==
LOC: ED 11:06 → ICU 14:04
PROVIDERS: Admitting Provider Internal Medicine; Emergency Provider Emergency Medicine; PCP Family Medicine; Visit Provider Internal Medicine
DX: E11.10 Type 2 diabetes mellitus with ketoacidosis without coma (principal); E66.01 Morbid (severe) obesity due to excess calories; Z68.43 Body mass index [BMI] 50.0-59.9, adult; I10 Essential (primary) hypertension; G47.33 Obstructive sleep apnea (adult) (pediatric); Z79.84 Long term (current) use of oral hypoglycemic drugs; Z79.899 Other long term (current) drug therapy; E86.0 Dehydration; G89.29 Other chronic pain; R10.9 Unspecified abdominal pain; F17.210 Nicotine dependence, cigarettes, uncomplicated
CPT/HCPCS: 80048; 80053; 81001; 81025; 82009; 82962; 83036; 83690; 83735; 84100; 85025; 93005; 97803; 99251; 99285; J7030; A4216; G0463; J2405

== ENCOUNTER 2020-12-26 08:48 | Day surgery (SDC) | payer MEDICAID, SELFPAY ==
[2020-11-19 14:40] VITALS: BMI 50.1
[2020-12-26] VITALS (8 sets, daily range): BP systolic 107–120; BP diastolic 72–81; PULSE 58–82; RESP 16; TEMP 36.6–37.1; O2SAT 20–100; BMI 50.8
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
[2020-12-26] MEDS: Lactated Ringers 1,000 ML 100 ML IV (07:45)
[2020-12-26 09:26] LABS: Bedside Glucose 111 mg/dL (70-110)
--- NOTE | 2020-12-26 10:00 | IMM_PTH ---
PATIENT: JOSE SCHMIDT LOC: EN U#:[id number] AGE/SX: 35/F ROOM: RE12/26/[address]: Dr. Mary Dawson MD : 1985 BED: DIS: 12/26/2020 SPEC #: [id number] RECD: 12/27/20 08:24 STATUS: JACQUI REQ #: [id number] LEIDY: 12/26/20 10:[address]: Mary Dawson DEPT: IMMUNOHISTOCHEMISTRY RECD BY: Leonila Brothers ENTERED: 12/27/20 08:24 SP TYPE: IMMUNO OTHR DR: Dr. Chris Licona MD Tissues: A - Stomach, NOS Procedures: H Pylori (initial) PHYSICIAN & INSTITUTION [place] [address] SPECIMEN INFORMATION: Tissue Source: A - Antrum biopsy Clinical Info: Epigastric abdominal pain, diarrhea Specimen Number: [id number] CPT code: 81318 METHODOLOGY: Deparaffinized sections of prefer/formalin-fixed tissue or PAP/DQ stained slides are incubated with monoclonal/polyclonal antibodies/oligonucleotide probes. Localization is made via biotin free immunoperoxidase method. Appropriate controls are performed and reacted as expected. Results on target cell population are indicated in the following table: RESULTS: ANTIBODY / CLONE RESULT Block A H Pylori (polyclonal) negative These tests were developed and their performance characteristics determined by [facility]. They may not have been cleared or approved by the U.S. Food and Drug Administration. The FDA has determined that such clearance or approval is not necessary. INTERPRETATION: A. Antrum biopsy: Negative for Helicobacter pylori organisms. AM:trey 12/28/2020
--- NOTE | 2020-12-26 10:00 | EGD_PTH ---
PATIENT: JOSE SCHMIDT LOC: EN U#:[id number] AGE/SX: 35/F ROOM: RE12/26/[address]: Dr. Mary Dawson MD : 1985 BED: DIS: 12/26/2020 SPEC #: [id number] RECD: 12/26/20 12:32 STATUS: JACQUI REBeryl #: [id number] LEIDY: 12/26/20 10:[address]: Mary Dawson DEPT: SURGICAL PATHOLOGY RECD BY: Nafisa Baca ENTERED: 12/27/20 07:20 SP TYPE: EGD BIOPSY DOROTEO DR: Dr. Chris Licona MD Tissues: A - Gastric mucous membrane B - COLON BIOPSY Procedures: Surgery Specimen Level IV HEADER OPERATION: Colonoscopy, EGD ([facility]) PRE-OP DIAGNOSIS: Epigastric abdominal pain, diarrhea TISSUE SUBMITTED: A - Antrum biopsy for H. pylori and path, B - Random colonic biopsies MICROSCOPIC DIAGNOSIS A. Gastric antrum, biopsy: Chronic gastritis. See comment. B. Colon, random biopsy: Benign lymphoid aggregates. No evidence of colitis. AM:trey 12/28/2020 COMMENT A. The results of immunohistochemistry for Helicobacter pylori will be reported separately ([id number]). MICROSCOPIC DESCRIPTION Slides are reviewed. GROSS DESCRIPTION A - Received in fixative is one container labeled with the patient's name and designated antrum biopsy. The specimen consists of one irregular fragment of light scherer soft tissue that measures 0.4 x 0.3 x 0.1 cm. The specimen is totally submitted in one cassette. B - Received in fixative is one container labeled with the patient's name and designated random colonic biopsy. The specimen consists of multiple irregular fragments of light scherer soft tissue that in aggregate measure 2 x 0.3 x 0.1 cm. The specimen is totally submitted in one cassette. / SJ:trey 12/27/20 TC:3 CPT: 92688 x2
[2020-12-26] MEDS: Lactated Ringers 1,000 ML 999 ML IV (10:40)
--- NOTE | 2020-12-26 10:42 | OP.EGD_ITS ---
Patient Name: Shea Almanza Procedure Date: 12/26/2020 9:29 AM Date of : 1985 Age: 35 Procedure: Upper GI endoscopy Indications: Epigastric abdominal pain Providers: Mary Dawson MD Referring MD: Chris Licona MD Medicines: See the Anesthesia note for documentation of the administered medications Patient Profile: Refer to note in patient chart for documentation of history and physical. Complications: No immediate complications. Procedure: Pre-Anesthesia Assessment: - see anesthesia note After obtaining informed consent, the endoscope was passed under direct vision. Throughout the procedure, the patient's blood pressure, pulse, and oxygen saturations were monitored continuously. The gastroscope was introduced through the mouth, and advanced to the second part of duodenum. The upper GI endoscopy was accomplished without difficulty. The patient tolerated the procedure well. Scope In: 9:40:54 AM Scope Out: 9:59:03 AM Total Procedure Duration Time 0 hours 18 minutes 9 seconds Findings: The first portion of the duodenum and second portion of the duodenum were normal. The entire examined stomach was normal. Biopsies were taken with a cold forceps for histology. Verification of patient identification for the specimen was done by the nurse. Estimated blood loss was minimal. A small hiatal hernia was present. Impression: - Normal first portion of the duodenum and second portion of the duodenum. - Normal stomach. Biopsied. - Small hiatal hernia. Recommendation: - Discharge patient to home (ambulatory). - Resume previous diet. - Continue present medications. - Await pathology results. - My office will telephone with pathology results in 1-2 weeks Procedure Code(s): --- Professional --- 24597, Esophagogastroduodenoscopy, flexible, transoral; with biopsy, single or multiple Diagnosis Code(s): --- Professional --- K44.9, Diaphragmatic hernia without obstruction or gangrene R10.13, Epigastric pain CPT copyright 2017 [employer]. All rights reserved. The codes documented in this report are preliminary and upon dealer card room review may be revised to meet current compliance requirements. MD Mary Lopez MD 12/26/2020 10:42:10 AM This report has been signed electronically. Number of Addenda: 0 Note Initiated On: 12/26/2020 9:29 AM
--- NOTE | 2020-12-26 10:43 | OP.CCLET_ITS ---
12/26/2020 Chris Licona MD Re : Upper GI endoscopy procedure for Shea Almanza Dear Dr. Licona This procedure was performed on Saturday, December 26, 2020. My impressions and recommendations are as follows: Impressions : - Normal first portion of the duodenum and second portion of the duodenum. - Normal stomach. Biopsied. - Small hiatal hernia. Recommendations : - Discharge patient to home (ambulatory). - Resume previous diet. - Continue present medications. - Await pathology results. - My office will telephone with pathology results in 1-2 weeks My findings are described in the full procedure note, which is enclosed. If I can be of further assistance, please feel free to contact me at Doctor phone number(s): , Work: . Sincerely, MD Mary Lopez MD 12/26/2020 10:42:10 AM This report has been signed electronically.
--- NOTE | 2020-12-26 10:44 | OP.COLON_ITS ---
Patient Name: Shea Almanza Procedure Date: 12/26/2020 10:00 AM Date of : 1985 Age: 35 Procedure: Colonoscopy Indications: Functional diarrhea Providers: Mary Dawson MD Referring MD: Chris Licona MD Medicines: See the Anesthesia note for documentation of the administered medications Patient Profile: Refer to note in patient chart for documentation of history and physical. Last Colonoscopy: none. The patient's first colonoscopy is today. Complications: No immediate complications. Procedure: Pre-Anesthesia Assessment: - see anesthesia note After I obtained informed consent, the scope was passed under direct vision. Throughout the procedure, the patient's blood pressure, pulse, and oxygen saturations were monitored continuously. The Colonoscope was introduced through the anus and advanced to the cecum, identified by the appendiceal orifice, ileocecal valve and palpation. The colonoscopy was performed without difficulty. The patient tolerated the procedure well. The quality of the bowel preparation was adequate. Scope In: 10:24:30 AM Scope Withdrawal Time 0 hours 7 minutes 59 seconds Scope Out: 10:35:39 AM Total Procedure Duration Time 0 hours 11 minutes 9 seconds Findings: The perianal and digital rectal examinations were normal. Non-bleeding internal hemorrhoids were found. Biopsies for histology were taken with a cold forceps from the entire colon for evaluation of microscopic colitis. Impression: - Non-bleeding internal hemorrhoids. - Biopsies were taken with a cold forceps from the entire colon for evaluation of microscopic colitis. Recommendation: - Discharge patient to home (ambulatory). - Resume previous diet. - Continue present medications. - Await pathology results. - My office will telephone with pathology results in 1-2 weeks - Repeat colonoscopy as per ACS guidelines as per ACS guidelines for screening for colon cancer. Procedure Code(s): --- Professional --- 84150, Colonoscopy, flexible; with biopsy, single or multiple Diagnosis Code(s): --- Professional --- K64.8, Other hemorrhoids K59.1, Functional diarrhea CPT copyright 2017 [employer]. All rights reserved. The codes documented in this report are preliminary and upon interpretive naturalist review may be revised to meet current compliance requirements. MD Mary Lopez MD 12/26/2020 10:44:20 AM This report has been signed electronically. Number of Addenda: 0 Note Initiated On: 12/26/2020 10:00 AM
--- NOTE | 2020-12-26 10:45 | OP.CCLET_ITS ---
12/26/2020 Chris Licona MD Re : Colonoscopy procedure for Shea Almanza Dear Dr. Licona This procedure was performed on Saturday, December 26, 2020. My impressions and recommendations are as follows: Impressions : - Non-bleeding internal hemorrhoids. - Biopsies were taken with a cold forceps from the entire colon for evaluation of microscopic colitis. Recommendations : - Discharge patient to home (ambulatory). - Resume previous diet. - Continue present medications. - Await pathology results. - My office will telephone with pathology results in 1-2 weeks - Repeat colonoscopy as per ACS guidelines as per ACS guidelines for screening for colon cancer. My findings are described in the full procedure note, which is enclosed. If I can be of further assistance, please feel free to contact me at Doctor phone number(s): , Work: . Sincerely, MD Mary Lopez MD 12/26/2020 10:44:20 AM This report has been signed electronically.
[2020-12-26 10:55] LABS: Bedside Glucose 121 mg/dL (70-110)
== END 2020-12-26 11:55 | disposition home or self-care (01) ==
LOC: EN 08:49 → AC 08:49
PROVIDERS: PCP Family Medicine; Referring Provider Family Medicine; Visit Provider Surgery
PROC: 0DJD8ZZ Inspection of Lower Intestinal Tract, Via Natural or Artificial Opening Endoscopic (ICD-10-PCS; CPT 45378; principal; 2020-12-26 09:55)
DX: K29.50 Unspecified chronic gastritis without bleeding (principal); K44.9 Diaphragmatic hernia without obstruction or gangrene; K64.8 Other hemorrhoids; F17.210 Nicotine dependence, cigarettes, uncomplicated; E66.01 Morbid (severe) obesity due to excess calories; Z68.43 Body mass index [BMI] 50.0-59.9, adult; I10 Essential (primary) hypertension; K21.9 Gastro-esophageal reflux disease without esophagitis; E78.00 Pure hypercholesterolemia, unspecified; F41.9 Anxiety disorder, unspecified; F32.9 Major depressive disorder, single episode, unspecified; Z79.4 Long term (current) use of insulin; Z79.899 Other long term (current) drug therapy; Z20.822 Contact with and (suspected) exposure to COVID-19
CPT/HCPCS: 43239; 45380; 82962; 87426; 88305; 88342; C9803; J7120; J2405

== ENCOUNTER → 2021-02-04 11:26 | Outpatient (CLI) | payer MEDICAID, SELFPAY ==
[2020-12-26 09:17] VITALS: BMI 50.8
--- NOTE | 2021-02-04 13:46 | NEURO ---
NCS and/or EMG Patient Report Ordering Doctor: Dia Martin DATE OF SERVICE: 02/04/21 Indication: Tingling and numbness in the toes of both feet. Intermittent sharp pains in both lower extremities. History of recently diagnosed type II diabetes. Evaluate for peripheral polyneuropathy. Findings: Nerve conduction studies were performed in the right and left lower extremities. The right peroneal motor study recording the extensor digitorum brevis showed a normal amplitude, normal distal latency and normal conduction velocity. No conduction block or focal slowing was present across the fibular neck. The right tibial motor study recording the abductor hallucis brevis showed a normal amplitude, normal distal latency and normal conduction velocity. Right sural sensory response showed a normal amplitude and conduction velocity. Right superficial peroneal sensory response showed a borderline amplitude and normal conduction velocity. Right medial plantar sensory response was not obtainable. The left peroneal motor study recording the extensor digitorum brevis showed a normal amplitude, normal distal latency and normal conduction velocity. No conduction block or focal slowing was present across the fibular neck. The left tibial motor study recording the abductor hallucis brevis showed a normal amplitude, normal distal latency and normal conduction velocity. Left sural sensory response showed a reduced amplitude and normal conduction velocity. Left superficial peroneal sensory response showed a normal amplitude and conduction velocity. Left medial plantar sensory response showed a normal amplitude and conduction velocity. Left radial sensory response showed a normal amplitude and conduction velocity. Needle EMG of the upper and lower extremity muscles was normal. No denervation was present in any muscle. Motor unit morphology, activation, and recruitment patterns were normal. Impression: This is a borderline abnormal study. The lower extremity sensory responses were asymmetric and slightly below the expected amplitudes for age and when compared to the radial nerve in the upper extremity. A mild, asymmetric, sensory peripheral polyneuropathy cannot be excluded by this examination. There was no electrophysiologic evidence of a superimposed lumbar radiculopathy or peroneal neuropathy. Mingo Brenner D.O.
== END ==
PROVIDERS: PCP Family Medicine; Referring Provider Physician Assistant; Visit Provider Physician Assistant
DX: R20.0 Anesthesia of skin (principal); R20.2 Paresthesia of skin
CPT/HCPCS: 95886; 95912

== ENCOUNTER 2022-11-04 10:30 | Outpatient (RCR) | payer MEDICAID, SELFPAY ==
--- NOTE | 2022-09-25 14:52 | HP.PTEVAL_ITS ---
Patient's Visit Information JOSE SCHMIDT is a 37 year old F referred to Physical Therapy by TAY Jhaveri with a diagnosis of Left Knee Pain. Date of Evaluation: 09/25/22 Physical Therapist: Linda Davis DPT - Visit Plan Frequency: 2x /Week Duration: 4 Weeks Plan: Focus on LE and core strength/stabilization-proprioception and functional mobility. HEP Given IE: quad set, SLR, clams, SLS, sit to stand - Subjective Patient reports she has had two scopes on her left knee- cleaned up the meniscus and torn PCL- last surgery was 2018 and she has been having injections for pain mgmt. She came back to get another injection but things are different. The pain is different than before and so they sent her to see me instead. The pain no is more on in the distal anterior knee. Last night was her first night back to work and she had Gastric Bypass in June- last night her leg was sore from standing the pain was down into the kathleen. Worst: 8/10 Agg: pushing on it, up on it too long, moving the wrong way. Best: 0/10 Eases: Tylenol, creams, hot shower, getting off of it. She tries not to get stiff. Describes the pain as sharp but it was kind of like a heavy pain. No N/T in the LE. 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 Since surgery she is more active- She has lost approx 60# from the whole process. She has had therapy prior for her knee land and pool before and after the last surgery. Sleep: sometimes it can- no specific position. Goals: be able to manage pain. X-rays: no issues. PMHx/ Meds: No changes since ortho 09/17/22. - Objective Posture: FH, RS can correct with verbal cues but does not maintain. Gait: increased pelvic sway HR/TR: able SLS: 10 sec with increased sway. Palpation: tender along distal patella Stairs: asc/desc 8 recip with 2 HR- poor control with descent Squat: weight shift with increased pain and only able to bend half way. ROM: 0-120 degrees. Strength: Core: fair, Hip: 4/5, Knee: Left: Extn:56/59 Flexion: 44/46- SLR: moderate lag, Ankle: 5/5. Flex: HS: moderate, Gastroc: moderate - Balance/Special Test Scores Lower Extremity Functional Score: 57 - Goals Goal 1:: Patient will be I with HEP and progression Goal Time Frame: 4-6 Weeks Goal 2:: Patient will maintain proper posture t/o tx session to demo increased core s/s Goal Time Frame: 4-6 Weeks Goal 3:: Patient will squat with good mechanics Goal Time Frame: 4-6 Weeks Goal 4:: Patient will report 80% improvement Goal Time Frame: 4-6 Weeks - Rehabilitation Potential Physical Therapy Diagnosis: Patient presents with hypomobility- she has decreased LE and core strength/stabilization, proprioception, flex and muscular endurance leading to abnormal gait and increased pain with ADL's Rehabilitation Potential: Good - Anticipated Interventions Patient/Client Instruction: Educate patient on: Benefits of Fitness Program Therapeutic Exercise to Include: Strength training, Endurance training, Balance training, Coordination, Agility training, Body mechanics, Postural training, Flexibilty training, Gait and locomotor training, Neuromotor development, Dynamic Lumbar Stabilization, Scapular Strength/Stabilization For the Purpose of:: To improve muscle performance and motor function TENS: Yes Cryotherapy (ice pack, ice massage): Yes Thermo therapy (hot pack): Yes Ultrasound (thermal/non thermal): Yes Thank you for the opportunity to evaluate your patient. For Medicare and Medicare HMO plans, please review the plan of care and approve it. It will need to be FAXED BACK to us at [phone] for Medicare purposes. For Medicare only, by signing this I certify the plan of care. Please let me know if there are questions or concerns regarding this plan of care. Physician Signature: Date:
--- NOTE | 2022-11-04 11:26 | HP.PTDCSUM ---
It has been my pleasure to treat JOSE SCHMIDT referred by TAY Jhaveri, with the diagnosis of Left Knee Pain for a total of 7 visit(s). Discharge Date: Please see the following information for a summary of their discharge status. Subjective: She has no pain currently but does sometimes have pain at work. If she is super busy at work it gets really bad but most of the time its not so bad. She does feel that therapy has helped and she is doing her own exercises. Left Knee Pain Intensity (Out of 10): 0 % Improvement: 80 Objective/Function: Posture: FH, RS can correct with verbal cues but does not maintain. Gait:no deviation noted HR/TR: able SLS: 20 sec with mild increased sway. Palpation: not tender to touch Stairs: asc/desc 8 recip with no HR ROM: 0-125 degrees. Strength: Core: fair, Hip: 4/5, Knee: Left: Extn:56 Flexion: 45 Ankle: 5/5. Flex: HS: moderate, Gastroc: moderate Goal 1:: Patient will be I with HEP and progression Goal Progress: Goal Met Goal 2:: Patient will maintain proper posture t/o tx session to demo increased core s/s Goal Progress: Goal Met Goal 3:: Patient will squat with good mechanics Goal Progress: Progressing Goal 4:: Patient will report 80% improvement Goal Progress: Goal Met Plan: 11/04/22: Discharge to HEP- will continue her exercises at home per patient request- will come back PRN. If there are questions or concerns regarding this patient's physical therapy, please feel free to call me at [phone]. Thank you for the referral of this patient. Sincerely, Linda Davis, DPT Balance/Gait/Functional tests - Balance/Special Test Scores Lower Extremity Functional Score: 75
== END 2022-11-04 12:39 | disposition home or self-care (01) ==
LOC: PT 10:30
PROVIDERS: PCP Family Medicine; Referring Provider Physician Assistant; Visit Provider Physician Assistant
DX: M76.52 Patellar tendinitis, left knee (principal); M70.50 Other bursitis of knee, unspecified knee
CPT/HCPCS: 97110; 97161; 97164

== ENCOUNTER 2023-08-10 12:00 | Outpatient (RCR) | payer MEDICAID, SELFPAY ==
--- NOTE | 2023-07-15 12:30 | HP.OTEVAL ---
Patient's Visit Information Visit Information Visit Information: JOSE SCHMIDT is a 37 year old F, referred to Occupational Therapy by TAY Jhaveri, with a diagnosis of right forearm pain/ right elbow pain. Date of Evaluation: 07/15/23 Occupational Therapist: Adriana Brush, THOMPSON/Efra, CHT Subjective Subjective: This 37 year old female was seen for OT eval with dx of right elbow and forearm pain- pt states pt states while playing with children- they were trying to pull her off the couch with her right arm some kids were pulling and some pushed on side of arm and pt states she felt like it may have cause a right elbow dislocation. pt states this happened in February. pt states she has been in and out of sling- medication and use of creams to decrease pain. 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 Pt will demo understanding of using supportive bracing 80% of workday/ADLS to decrease stress on tendon origin to allow healing and decrease pain by end of 2nd session. Rehabilitation General Assessment: pt demo with a decrease in right forearm and elbow ROM - pain with movement as well as with resistive testing- pt is limited with performing ADLs and IADLs at this time- pt would benefit from skilled OT services 1-2x week for 6 weeks to decrease pain and increase pts strength to return her to her PLOF. pt demo understanding and agree to POC. Rehabilitation Potential: Good Anticipated Interventions Anticipated Interventions: A/AAROM/PROM, Strengthening, Modalities, Orthoses, Joint Protection/Energy Conservation, Education re assistive Equipment, Education re Diagnosis, Caregiver Training and Home Program Visit Plan Frequency: 1-2x /Week Duration: 6 Weeks TEXT: Thank you for the opportunity to evaluate your patient. For Medicare and Medicare HMO plans, please review the plan of care and approve it. It will need to be FAXED BACK to us at [phone] for Medicare purposes. Please let me know if there are questions or concerns regarding this plan of care. Physician Signature: Date:
--- NOTE | 2024-01-06 14:22 | HP.OTDCSUM_ITS ---
Discharge Summary D/C Summary: It has been my pleasure to treat JOSE SCHMIDT under orders from TAY Jhaveri, for the diagnosis of right forearm pain/ right elbow pain for a total of 8 visit(s). Please see the following information for a summary of their discharge status. 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 Forearm stretching friction massage using bracing for lat. 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 Pt will demo understanding of using supportive bracing 80% of workday/ADLS to de crease stress on tendon origin to allow healing and decrease pain by end of 2nd session. Plan Plan: pt to return to dr. Araiza/Zeeshan Information d/c sentence: If there are questions or concerns regarding this patient's occupational therapy, please fell free to call me at [phone]. Thank you for the referral of this patient. Sincerely, Adriana Brush, OTR/L, CHT
== END 2023-08-10 19:00 | disposition home or self-care (01) ==
LOC: OT 12:00
PROVIDERS: PCP Family Medicine; Visit Provider Physician Assistant
DX: M25.521 Pain in right elbow (principal); M79.631 Pain in right forearm
CPT/HCPCS: 97035; 97140; 97166; 97530

== ENCOUNTER → 2023-10-19 | Outpatient (CLI) | payer MEDICAID, SELFPAY ==
--- NOTE | 2023-10-19 13:15 | MRI_ITS ---
STUDY: MRI RIGHT ELBOW REASON FOR EXAM: Female, 38 years old. Pain - lateral epicondylitis right elbow, weakness. Symptoms for 8 months. TECHNIQUE: Standardized fat and water weighted pulse sequences were obtained in all 3 orthogonal planes. COMPARISON: None. FINDINGS: Normal radio-capitellum articulation. Normal radial collateral ligamentous complex. Normal common extensor tendon. Normal ulnotrochlear articulation. Normal ulnar collateral ligamentous complex. Normal common flexor tendon. The cubital tunnel is normal, with a normal ulnar nerve. Normal biceps tendon and distal insertion. Normal lacertus fibrosis. Normal brachialis musculotendinous insertion. Normal triceps tendon and teno-osseous insertion. Normal olecranon process. The visualized distal humerus, proximal radius, and ulna are normal. The visualized muscles of the distal arm and proximal forearm are normal. The soft tissue structures are unremarkable. MRI/Upper Ext Joint Only(Routine) IMPRESSION: Unremarkable MRI of the elbow. Specifically, no MRI evidence of lateral epicondylitis. Electronically Signed: Sumeet Ross MD at 8:07 EST ,
== END | disposition home or self-care (01) ==
LOC: MRI 12:47
PROVIDERS: PCP Family Medicine; Referring Provider Orthopaedic Surgery Sports Medicine; Visit Provider Orthopaedic Surgery Sports Medicine
DX: M77.11 Lateral epicondylitis, right elbow (principal)
CPT/HCPCS: 73221

== ENCOUNTER 2024-02-17 19:46 | Emergency (ER) | payer MEDICAID, SELFPAY ==
[2024-02-17 19:47] VITALS: BP 118/80; PULSE 79; RESP 18; TEMP 36.3; O2SAT 97; BMI 36.1
--- NOTE | 2024-02-17 20:58 | ED.VIS.BACK ---
HPI History of Present Illness Chief Complaint: Back Informant: patient Onset/Context/Timing Onset: Month(s) Context: Gradual Onset Timing: Continuous Quality: Sharp Location: Lumbar Maximum Severity: Moderate Worsened by: improves with Movement, Bending and Lifting Relieved by: Nothing Associated Symptoms Associated Symptoms: Radiation to Right Leg and Radiation to Left Leg; Negative for Numbness, Tingling, Fever, Abdominal Pain, Dysuria, Unable to Ambulate, Unable to Transfer, Urinary Retention, Urinary Incontinence, Constipation or Fecal Incontinence Narrative Narrative: 38-year-old female history diabetes and hypertension. Prior back history. The last 5 months she has had lower back pain that now radiates to her buttocks and hamstrings bilaterally. Worse with movement or bending. Denies any fall injury or trauma. In 2021 she did have back injections. She has seen her primary care physician and orthopedic spine Dr. Narvaez. She is also seeing pain management. She has not had any injections yet. And they been unable to obtain an MRI of her back due to insurance reasons. That is being worked on. She said the pain is only getting worse. She has 3 children at home and can continue to function his way. She denies any fever. No bowel or bladder incontinence or retention. No leg weakness. No numbness. Prior similar symptoms: Yes Recent Illness/Hospitalization: No PFSH [facility] Medical History Left lateral epicondylitis Right lateral epicondylitis Pes anserine bursitis Patellar tendinitis of left knee Left knee pain Diabetes mellitus type 2 in obese Sleep apnea Hypertension Home Medications ?Medication ?Instructions ?Recorded ?Last Taken ?Type fluticasone propionate 50 2 spry IH BID allergies 06/09/19 11/18/20 History mcg/actuation nasal spray,suspension sumatriptan succinate 100 mg tablet 100 mg PO .X1 PRN headaches 06/01/20 08/28/20 History cyclobenzaprine 10 mg tablet 10 mg PO Q8H PRN muscle spasms 11/19/20 Unknown History epinephrine 0.3 mg/0.3 mL 0.3 mg IJ X1 food allergy 11/19/20 11/12/20 History injection, auto-injector nystatin 100,000 unit/gram topical 1 applic topical TID #1 tube 11/20/20 Unknown Rx ointment ondansetron 4 mg disintegrating 4 mg translingual Q6H PRN PRN 11/20/20 11/19/20 06:30 Rx tablet Nausea #0 tabs diclofenac sodium 1 % topical gel 4 g topical TID #100 grams 09/19/22 Unknown Rx (Voltaren Arthritis Pain) fluoxetine 40 mg capsule mg PO 06/29/23 Unknown History multivitamin 1 tab PO DAILY 06/29/23 Unknown History norethindrone acetate 5 mg tablet mg PO 06/29/23 Unknown History cholecalciferol (vitamin D3) 50 50 mcg PO DAILY 10/26/23 Unknown History mcg (2,000 unit) capsule calcium carb,cit ER 600 mg-vit D3 tab PO 01/07/24 Unknown History 12.5 mcg (500 unit) tablet,ext.rel (Citracal-D3 Slow Release) dulaglutide 1.5 mg/0.5 mL mg subcut 01/28/24 Unknown History subcutaneous pen injector (Trulicity) insulin aspart U-100 100 unit/mL subcut 01/28/24 Unknown History (3 mL) subcutaneous pen metformin 500 mg tablet mg PO BID 01/28/24 Unknown History oxycodone-acetaminophen 5 mg-325 1 tab PO Q6H PRN pain 4 days #14 02/17/24 Unknown Rx mg tablet (Percocet) tabs Allergy/AdvReac Type Severity Reaction Status Date / Time Acrylic Acid and Acrylates Allergy Rash/Swelli Verified 02/17/24 19:47 (steri-strips (acrylate)) ng celecoxib (From Celebrex) Allergy Swelling Verified 02/17/24 19:47 lisinopril Allergy cough Verified 02/17/24 19:47 monosodium glutamate (msg) Allergy Food Verified 02/17/24 19:47 Allergy Penicillins Allergy Hives Verified 02/17/24 19:47 sucralfate Allergy Rash Verified 02/17/24 19:47 tramadol Allergy Rash/vomiti Verified 02/17/24 19:47 ng duloxetine (From Cymbalta) AdvReac headaches Verified 02/17/24 19:47 meperidine HCl (From Demerol) AdvReac hypotension Verified 02/17/24 19:47 Surgical History Hx of adenoidectomy Hx of cholecystectomy Hx of tonsillectomy Hx of eye surgery Hx of section Hx of gastric bypass Social History Smoking Status: Current every day smoker alcohol intake: never ROS ROS ED ROS Narrative Back pain. Radiation to her legs. Review of Systems ROS Unobtainable: Denies due to encephalopathy Constitutional Constitutional ED: Denies chills or fever(s) Eyes Eyes: Denies blurry vision ENT ENT ED: Denies ear pain Cardiovascular Cardiovascular: Denies chest pain Respiratory/Chest Respiratory/Chest: Denies dyspnea Gastrointestinal Gastrointestinal: Denies abdominal pain Genitourinary Genitourinary ED: Denies dysuria or hematuria Musculoskeletal Musculoskeletal: Reports back pain; Denies arthralgias, myalgias or neck pain Integumentary Denies abscess or Abrasions Neurologic Neurologic: Denies headache(s) Psychiatric Psychiatric: Denies anxiety Endocrine Endocrinology: Denies cold intolerance Hematologic/Lymphatic Hematologic/Lymphatic: Denies easy bleeding Allergic/Immunologic Allergic/Immunologic ED: Denies mouth swelling or tongue swelling EXAM Physical Exam Narrative Exam Narrative: Well-appearing 38-year-old female. Vital signs stable afebrile. H EENT exam unremarkable. Neck nontender. Lungs clear. Heart regular rhythm rate about 80 no murmur. Chest wall nontender. Abdomen soft nontender. Back no signs of trauma. No redness or warmth. She has tenderness over her lumbar spine. No ecchymosis or bruising. She has 5-5 registered vascular technologist (rvt) strength. Normal dorsi plantarflexion of both legs. Positive straight leg raise bilaterally at about 35 degrees. Normal sensation. No cauda equina or saddle anesthesia. Neurologically she is awake and alert with no focal motor or sensory deficits. Const Vital Signs: 02/17/24 19:47 Temperature 97.3 F L Temperature Source Temporal Pulse Rate 79 Respiratory Rate 18 Blood Pressure 118/80 Blood Pressure Mean 92 Pulse Ox 97 Positive well nourished and well developed; Negative for cachectic, contractures or unkempt General Appearance ED: well developed and NAD; Negative for unkempt, cachectic, contractures or pallor Nutritional Appearance: Negative for cachectic HEENT Reports moist mucous membranes Negative for trauma or tenderness Eyes PERRL and EOMs intact bilaterally General Eye ED: Negative for pale conjunctiva or scleral icterus Neck no lymphadenopathy, supple and no JVD General: Negative for tenderness Thyroid: Negative for other Chest Wall Chest: Negative for other Resp normal respiratory effort and clear to auscultation bilaterally Effort and Inspection: Negative for pain with movement Auscultation: Negative for rales, rhonchi or wheezes Cardio regular rate, regular rhythm, S1 normal heart sound, S2 normal heart sound and no murmurs Palpation: Negative for palpable S3 Rate: Negative for bradycardia or tachycardic Rhythm: Negative for abnormal rhythm Bruits: Negative for other GI normal to inspection, nondistended, normoactive bowel sounds, soft to palpation, non-tender, non-distended and no masses Inspection: Negative for abdominal distention Palpation: Negative for tender, guarding or rebound tenderness present Back/Spine normal to inspection; Negative for no thoracic nor lumbar tenderness Back/Spine Narrative: Lumbar tenderness. General Back: Negative for CVA tenderness Cervical Spine: Negative for cervical spine tenderness and Negative for paracervical muscle tenderness Thoracic Spine / Upper Back: Negative for paraspinal muscle tenderness Extremity normal to inspection and no clubbing, cyanosis or edema General Extremety ED: Negative for edema or tenderness General Extremity: Negative for edema Neuro oriented x3 and no sensory deficits noted Sensorium / Orientation: alert; Negative for confused, lethargic or stuporous Motor Exam: strength 5/5 throughout; Negative for strength abnormal Psych mental status grossly normal Appearance: Negative for unkempt Attitude: No agitated Mood & Affect: tearful; Negative for depressed or sad Skin no rashes or lesions noted and no wounds General Skin Exam: Negative for jaundice or pallor Lesions: No lesion noted Rashes: No rashes noted Trauma: Negative for abrasion or puncture Wounds: Negative for wounds noted MDM MDM MDM Narrative Medical decision making narrative: 38-year-old female prior back history but no prior back surgery. No trauma or fever. For 5 months she has had progressively worsening back pain. She seen her primary, a spine surgeon and pain management. They are trying to get an MRI there is been delayed by the insurance. I will write her for limited Percocet for pain 14 no refill. Given to here. She has a history of prior gastric bypass and lost 100 pounds but she cannot take NSAIDs due to that surgery. She knows to follow-up with her primary care physician and/or spine surgeon to see if they can get the MRI done expeditiously. She has normal strength and sensation at this time. She does not meet criteria currently for a stat MRI. She has no signs of cauda equina. History & Record Review Discussion w/independent historian: Patient Additional record(s) reviewed:: Prior inpatient record, Prior outpatient record, Prior ED visit and Prior labs Discharge Plan Triage Chief Complaint: Back ED Provider: Fredi Winston Dx/Rx/DC Orders Clinical Impression: Lumbar radiculopathy, Back pain, History of diabetes mellitus, History of hypertension Instructions: ED Back Pain (Acute or Chronic) Prescriptions: New oxycodone-acetaminophen [Percocet] 5-325 mg tablet 1 tab PO Q6H PRN (Reason: pain) 4 Days Qty: 14 0RF No Action diclofenac sodium [Voltaren Arthritis Pain] 1 % gel 4 g topical TID Qty: 100 0RF Rx Instructions: apply to single knee, norethindrone acetate 5 mg tablet PO Patient Comments: TAKE 1 TABLET BY MOUTH ONCE DAILY fluoxetine 40 mg capsule PO Patient Comments: Take 1 capsule by mouth once daily. multivitamin Tablet 1 tab PO DAILY cholecalciferol (vitamin D3) 50 mcg (2,000 unit) capsule 50 mcg PO DAILY calcium carb and citrate-vitD3 [Citracal-D3 Slow Release] 600 mg-12.5 mcg (500 unit) tablet extended release PO Trulicity 1.5 mg/0.5 mL pen injector subcut metformin 500 mg tablet PO BID insulin aspart U-100 100 unit/mL (3 mL) insulin pen subcut fluticasone propionate 16 GM spray,suspension 2 spry IH BID Patient Comments: Inhale 2 sprays in each nostril 1 time daily. Rinse mouth after use sumatriptan succinate 100 MG tablet 100 mg PO .X1 PRN epinephrine 0.3 MG/0.3 ML auto-injector 0.3 mg IJ X1 cyclobenzaprine 10 MG tablet 10 mg PO Q8H PRN (Reason: muscle spasms) nystatin 1 APPLIC ointment 1 applic TOPICAL TID Qty: 1 2RF Protocol: *Topical Application Instructions APPLICATION INSTRUCTIONS: in B/L groin area ondansetron 4 mg tablet,disintegrating 4 mg translingual Q6H PRN PRN (Reason: Nausea) Qty: 0 0RF Patient Comments: DISSOLVE ONE TABLET on the tongue EVERY 8 HOURS NEEDED FOR NAUSEA AND VOMITING Primary Care Provider: Chris Licona Referrals: Angel Narvaez MD [Med Staff - Active Staff] - As soon as possible Chris Licona MD [Primary Care Provider] - As soon as possible Activity Restrictions/Additional Instructions: This appears to be degenerative disc problem in your lower back. You absolutely need the MRI. Follow-up with your primary care physician and your spine physician to see if they can make headway with your insurance to get it done. Limited Percocet for pain. If you get bowel or bladder incontinence or unable to urinate or leg weakness or numbness and return to the ER we get emergent MRI which we cannot get done tonight. Print Language: Pakistani Disposition Disposition: Home, Self Care
[2024-02-17] MEDS: Oxycodone/Apap 5/325 Tablet PO (21:07)
[2024-02-17 21:10] VITALS: BP 119/78; PULSE 79; RESP 16; TEMP 36.6; O2SAT 99
== END 2024-02-17 21:11 | disposition home or self-care (01) ==
PROVIDERS: Emergency Provider Emergency Medicine; PCP Family Medicine; Visit Provider Emergency Medicine
DX: M54.16 Radiculopathy, lumbar region (principal); E11.9 Type 2 diabetes mellitus without complications; I10 Essential (primary) hypertension; F17.200 Nicotine dependence, unspecified, uncomplicated
CPT/HCPCS: 99282

== ENCOUNTER → 2024-03-03 | Outpatient (CLI) | payer MEDICAID, SELFPAY ==
[2024-03-06 17:19] LABS: Factor VIII Activity 217 % (56-140); VWD Studies Interp Report Note (.); von Willebrand Factor (vWF) Ag 238 % (50-200); von Willebrand Factor Activity 157 % (50-200)
== END | disposition home or self-care (01) ==
LOC: LAB 12:48
PROVIDERS: PCP Family Medicine; Referring Provider Family Medicine; Visit Provider Family Medicine
DX: R23.3 Spontaneous ecchymoses (principal)
CPT/HCPCS: 36415; 85240; 85245; 85246

== ENCOUNTER → 2024-03-05 | Outpatient (CLI) | payer MEDICAID, SELFPAY ==
--- NOTE | 2024-03-05 07:33 | MRI_ITS ---
STUDY: MRI LUMBAR SPINE WITHOUT CONTRAST REASON FOR EXAM: Female, 38 years old. Pain TECHNIQUE: Standardized fat and water weighted pulse sequences were obtained in the sagittal and axial planes. COMPARISON: None FINDINGS: T12-L1: Normal endplates. Normal disc height, hydration and morphology. Normal bilateral facet joints. Normal central canal and bilateral lateral recesses. Normal bilateral intervertebral neural foramina. Normal lumbar lordosis. There is no substantial scoliosis. Normal conus medullaris that terminates at the L1 level. L1-2: Normal endplates. Normal disc height, hydration and morphology. Normal bilateral facet joints. Normal central canal and bilateral lateral recesses. Normal bilateral intervertebral neural foramina. L2-3: Normal endplates. Normal disc height, hydration and morphology. Normal bilateral facet joints. Normal central canal and bilateral lateral recesses. Normal bilateral intervertebral neural foramina. L3-4: Normal endplates. Normal disc height, hydration and morphology. Normal bilateral facet joints. Normal central canal and bilateral lateral recesses. Normal bilateral intervertebral neural foramina. L4-5: Mild spurring. Disc bulge with central annular tear. Facet spurring with ligament flavum hypertrophy. Mild canal stenosis. Neural foramina are patent. L5-S1: Normal endplates. Normal disc height, hydration and morphology. Normal bilateral facet joints. Normal central canal and bilateral lateral recesses. Normal bilateral intervertebral neural foramina. Normal visualized sacral ala. Normal visualized paraspinous soft tissue structures. MRI/Spine Lumbar (Routine) IMPRESSION: Degenerative changes with L4-5 canal stenosis. Electronically Signed: Gagan Proctor MD at 10:15 EDT ,
== END | disposition home or self-care (01) ==
LOC: MRI 06:56
PROVIDERS: PCP Family Medicine; Referring Provider Orthopaedic Surgery Orthopaedic Surgery of the Spine; Visit Provider Orthopaedic Surgery Orthopaedic Surgery of the Spine
DX: M54.16 Radiculopathy, lumbar region (principal)
CPT/HCPCS: 72148

== ENCOUNTER → 2024-08-05 | Outpatient (CLI) | payer MEDICAID, SELFPAY | END | disposition home or self-care (01) | LOC: MRI 10:40 | PROVIDERS: PCP Family Medicine; Referring Provider Orthopaedic Surgery Sports Medicine; Visit Provider Orthopaedic Surgery Sports Medicine | DX: M77.12 Lateral epicondylitis, left elbow (principal); M25.522 Pain in left elbow | CPT/HCPCS: 73221 ==

== ENCOUNTER 2024-09-26 22:23 | Emergency (ER) | payer MEDICAID, SELFPAY ==
[2024-09-26 22:23] VITALS: BP 137/89; PULSE 86; RESP 16; TEMP 36.9; O2SAT 99; BMI 34.5
[2024-09-27] VITALS: BP 120/81; PULSE 64; RESP 16; TEMP 36.8; O2SAT 99
--- NOTE | 2024-09-27 00:31 | CT_ITS ---
INDICATION: Left sided abd pain EXAMINATION: CT Abdomen And Pelvis W/ Contrast Injection TECHNIQUE: Helically acquired images were obtained of the abdomen and pelvis with sagittal and coronal reconstructed images. Individualized dose optimization techniques were used for this CT. IV contrast dosage and agent: 100 mL of [id number]-[id number]. Oral contrast: None. COMPARISON: 05/25/2014. FINDINGS: VESSELS: No abdominal aortic aneurysm or dissection. LIVER: No evidence of a mass. No intrahepatic or extrahepatic biliary duct dilation. GALLBLADDER: Not visualized. PANCREAS: No focal solid or cystic mass. No evidence of pancreatitis. SPLEEN: Normal. ADRENAL GLANDS: Normal. KIDNEYS AND URETERS: 1 mm left renal stone. No hydronephrosis or hydroureter. No significant asymmetric perinephric stranding. URINARY BLADDER: Unremarkable. BOWEL: No evidence of diverticulosis or diverticulitis. Appendix not identified. No evidence of bowel obstruction. Gas-distended colon. REPRODUCTIVE ORGANS: No evidence of a pelvic mass. PERITONEUM: No intraabdominal free fluid or free air. LYMPH NODES: No pathologically enlarged mesenteric or retroperitoneal lymph nodes. ABDOMINAL WALL: No abdominal or pelvic wall hernia. BONES: No acute abnormality. LOWER CHEST: Visualized lung bases are unremarkable. CT/Abdomen/Pelvis W IV Cont ONLY IMPRESSION: 1. No acute abnormality. 2. Nonobstructing left renal stone. Electronically Signed: Chris Novak DO at 2:58 EST ,
[2024-09-27] MEDS: Morphine 4 MG/ML Syringe IV (00:50)
[2024-09-27] MEDS: 0.9% Normal Saline (1000mL) 1,000 ML 999 ML IV (00:50)
[2024-09-27] MEDS: Ondansetron 4 MG/2 ML Vial IV (00:51)
[2024-09-27 00:58] LABS: Mucous, Urine 0 SEEN /hpf (<or=2+); Red Blood Cells-Urine 0 SEEN /hpf (0-5); Squamous Epithelial Cells - UA 0 SEEN /hpf (5-10)
[2024-09-27 01:00] VITALS: BP 138/81; PULSE 74; RESP 16; TEMP 36.9; O2SAT 93
[2024-09-27 01:03] LABS: Absolute Lymphocyte Count 2.97 X10^3/uL (0.83-4.51); Absolute Neutrophil Count 5.3 X10^3/uL (2.0-7.7); Basophil# 0.04 X10^3/uL; Basophil% 0.4 % (0-1); Color, Urine Yellow (Yellow); Eosinophil# 0.21 X10^3/uL; Eosinophils% 2.3 % (0-5); Glucose, Dipstick Normal (Normal); Hematocrit 39.4 % (37-47); Hemoglobin 13.6 g/dL (12.0-15.0); Ketone-Dipstick Negative (Negative); Leukocyte Esterase-Dipstick 100 /ul (Negative); Lymphocyte # 2.97 X10^3/ul (0.83-4.51); Lymphocyte % 31.9 % (19-41); Mean Corp Hgb Conc 34.5 g/dL (32-36); Mean Corpuscular Hgb 31.6 pg (27.0-32.0); Mean Corpuscular Volume 91.4 fL (81-99); Mean Platelet Vol. 9.2 fl (6.2-12.0); Monocyte# 0.76 X10^3/uL; Monocyte% 8.2 % (0-10); NRBC Flagged by Analyzer 0 % (0-5); Nitrite-Dipstick Negative (Negative); Occult Blood-Urine 25 /ul (Negative); Platelet Count 400 K/mm3 (150-450); Protein-Dipstick Negative (Negative); RBC Distribution Width CV 13.1 % (11.6-14.6); RBC Distribution Width SD 43.7 fl (35.1-43.9); Red Blood Count 4.31 M/mm3 (4.2-5.4); Specific Gravity, Urine 1.015 (1.002-1.030); Urine Bilirubin Dipstick Negative (Negative); Urine Clarity Clear (Clear); Urine Urobilinogen Normal (Normal); White Blood Count 9.3 K/mm3 (4.4-11.0)
[2024-09-27 01:12] LABS: White Blood Cells 0-5 SEEN /hpf (0-5)
[2024-09-27 01:13] LABS: Bacteria RARE /hpf (None Seen)
[2024-09-27 01:22] LABS: AST(SGOT) 20 U/L (15-37); Alanine Aminotransfer ALT/SGPT 34 U/L (13-56); Albumin, Serum 3.1 g/dL (3.2-5.0); Alkaline Phosphatase 75 U/L (45-117); Anion Gap 5 (5-15); BUN 8 mg/dL (7-18); BUN/Creat Ratio 10.1 RATIO (10-20); Bilirubin, Direct 0.11 mg/dL (0.00-0.30); Calcium,Total 8.6 mg/dL (8.5-10.1); Chloride 111 mmol/L (98-107); Creatinine, Serum 0.79 mg/dL (0.55-1.02); EST Glomerular Filtration Rate 86 mL/min (>60); Est Glom Filt Rate - Afr Amer 104 mL/min (>60); Estimated Creatinine Clearance 109.52 ml/min; Globulin 3.7 g/dL (2.2-4.2); Glucose 72 mg/dL (74-106); Lipase 33 U/L (13-75); Potassium 4.1 mmol/L (3.5-5.1); Protein, Total 6.8 g/dL (6.4-8.2); Sodium Level 141 mmol/L (136-145)
[2024-09-27 02:00] VITALS: BP 145/97; PULSE 65; RESP 18; TEMP 36.8; O2SAT 99
[2024-09-27] MEDS: HYDROmorphone 1 MG/ML Syringe IV (02:09)
[2024-09-27 03:00] VITALS: BP 136/84; PULSE 71; RESP 18; TEMP 36.8; O2SAT 96
--- NOTE | 2024-09-27 03:32 | EX.ED.DYSGE1 ---
HPI History of Present Illness Chief Complaint: Abd Pain Informant: patient Narrative Narrative: Patient is a 39-year-old female with past medical history of type 2 diabetes and hypertension. She also had previous gastric bypass surgery and recently underwent a hysterectomy. She states that she has been doing well but today noticed some redness around her bellybutton as well as some discharge. She states she is also noticed pain in the left lower quadrant. She denies any dysuria. She states she has been dealing with mild constipation. However with her worsening pain and soft tissue changes she is concern for infection and therefore comes in for evaluation [facility] Medical History (Updated 09/27/24 @ 04:[address] Kane Palm, DO) Left elbow pain Right wrist pain Left lateral epicondylitis Right lateral epicondylitis Pes anserine bursitis Patellar tendinitis of left knee Left knee pain Diabetes mellitus type 2 in obese Sleep apnea Hypertension Home Medications ?Medication ?Instructions ?Recorded ?Last Taken ?Type fluticasone propionate 50 2 spry IH BID allergies 06/09/19 11/18/20 History mcg/actuation nasal spray,suspension sumatriptan succinate 100 mg tablet 100 mg PO .X1 PRN headaches 06/01/20 08/28/20 History cyclobenzaprine 10 mg tablet 10 mg PO Q8H PRN muscle spasms 11/19/20 Unknown History epinephrine 0.3 mg/0.3 mL 0.3 mg IJ X1 food allergy 11/19/20 11/12/20 History injection, auto-injector nystatin 100,000 unit/gram topical 1 applic topical TID #1 tube 11/20/20 Unknown Rx ointment ondansetron 4 mg disintegrating 4 mg translingual Q6H PRN PRN 11/20/20 11/19/20 06:30 Rx tablet Nausea #0 tabs multivitamin 1 tab PO DAILY 06/29/23 Unknown History cholecalciferol (vitamin D3) 50 50 mcg PO DAILY 10/26/23 Unknown History mcg (2,000 unit) capsule calcium ER 600 mg (as carb,cit)-D3 2 tab PO QHS 01/07/24 Unknown History 12.5 mcg (500 unit) tablet, ext.rel (Citracal-D3 Slow Release) dulaglutide 1.5 mg/0.5 mL 0.75 mg subcut QWEEK 01/28/24 Unknown History subcutaneous pen injector (Trulicity) duloxetine 20 mg capsule,delayed 40 mg PO BID 07/07/24 Unknown History release pantoprazole 40 mg tablet,delayed 40 mg PO DAILY 09/26/24 Unknown History release oxycodone-acetaminophen 5 mg-325 1 tab PO Q6H PRN pain 3 days #12 09/27/24 Unknown Rx mg tablet (Percocet) tabs sulfamethoxazole 800 1 tab PO BID 10 days #20 tabs 09/27/24 Unknown Rx mg-trimethoprim 160 mg tablet (Bactrim DS) Allergy/AdvReac Type Severity Reaction Status Date / Time Acrylic Acid and Acrylates Allergy Rash/Swelli Verified 09/26/24 22:28 (steri-strips (acrylate)) ng celecoxib (From Celebrex) Allergy Swelling Verified 09/26/24 22:28 lisinopril Allergy cough Verified 09/26/24 22:28 monosodium glutamate (msg) Allergy Food Verified 09/26/24 22:28 Allergy Penicillins Allergy Hives Verified 09/26/24 22:28 sucralfate Allergy Rash Verified 09/26/24 22:28 tramadol Allergy Rash/vomiti Verified 09/26/24 22:28 ng meperidine HCl (From Demerol) AdvReac hypotension Verified 09/26/24 22:28 Surgical History (Updated 09/26/24 @ 23:45 by Stacey Felipe) Hx of hysterectomy Hx of adenoidectomy Hx of cholecystectomy Hx of tonsillectomy Hx of eye surgery Hx of section Hx of gastric bypass Social History Smoking Status: Former smoker alcohol intake: never ROS ROS ED Constitutional Constitutional ED: Denies chills or fever(s) Eyes Eyes: Denies change in vision ENT ENT ED: Denies sore throat Cardiovascular Cardiovascular: Denies chest pain Respiratory/Chest Respiratory/Chest: Denies cough or dyspnea Gastrointestinal Gastrointestinal: Reports abdominal pain and constipation; Denies diarrhea, nausea or vomiting Genitourinary Genitourinary ED: Denies dysuria or hematuria Musculoskeletal Musculoskeletal: Denies back pain Integumentary Reports other Details: Positive redness around the umbilicus Neurologic Neurologic: Denies headache(s) Hematologic/Lymphatic Hematologic/Lymphatic: Denies easy bleeding or easy bruising EXAM Physical Exam Const Vital Signs: 09/26/24 22:23 09/27/24 00:00 09/27/24 01:00 Temperature 98.4 F 98.3 F 98.4 F Temperature Source Oral Oral Oral Pulse Rate 86 64 74 Respiratory Rate 16 16 16 Blood Pressure 137/89 H 120/81 H 138/81 H Blood Pressure Mean 105 94 100 Pulse Ox 99 99 93 Oxygen Delivery Method Room Air Room Air Room Air 09/27/24 02:00 09/27/24 03:00 09/27/24 03:41 Temperature 98.2 F 98.3 F 98.5 F Temperature Source Oral Oral Pulse Rate 65 71 69 Respiratory Rate 18 18 16 Blood Pressure 145/97 H 136/84 H 136/64 H Blood Pressure Mean 113 101 88 Pulse Ox 99 96 99 Oxygen Delivery Method Room Air Room Air Positive well nourished, well developed and obese General Appearance ED: well developed Nutritional Appearance: obese HEENT HEENT Narrative: Normocephalic atraumatic Eyes PERRL and EOMs intact bilaterally General Eye ED: Negative for scleral icterus Neck supple Neck Narrative: No nuchal rigidity or meningeal signs Resp normal respiratory effort and clear to auscultation bilaterally Cardio regular rate and regular rhythm Rate: other Other Details: Heart is regular rate and rhythm without murmurs rubs or gallops Radial and carotid pulses are equal and symmetric GI non-distended and no masses GI Narrative: Abdomen is soft and nondistended with hypoactive bowel sound Patient has pain with palpation in the left lower quadrant without voluntary guarding or rigidity No pulsatile mass or fluid wave There is asymmetric circular erythema and warmth around the umbilicus without lymphangitic streaking There is faint serous discharge from inside the umbilicus without obvious abscess formation noted Auscultation: hypoactive bowel sounds Palpation: soft Extremity normal to inspection Extremity Narrative: No asymmetric edema no pitting edema negative Homans' sign bilaterally Neuro oriented x3, CN's II-XII intact bilaterally and no sensory deficits noted Sensorium / Orientation: alert Motor Exam: strength 5/5 throughout Psych mental status grossly normal Skin Skin Narrative: Soft tissue changes around the umbilicus as documented above MDM MDM MDM Narrative Medical decision making narrative: Patient arrived to the ER with stable vitals and was afebrile. Physical exam is concerning for cellulitis and/or abscess around the umbilicus. The pain in the left lower quadrant and recent hysterectomy there is concern for internal bleeding postoperative infection UTI/pyelonephritis diverticulitis or colitis or potential intestinal abscess as well. Secondary to this I did elect to perform basic labs with CT scan with IV contrast. Labs revealed no clinically significant findings and CT scan revealed distention of the colon which correlates with the location of her abdominal pain but otherwise no signs of obstruction or perforation or abscess. I do feel patient is developing cellulitis secondary to the asymmetric erythema and warmth around her umbilicus but without obvious abscess formation noted on exam or CT scan there is no need for incision and drainage. As the patient is not triggering septic protocol there is no need for IV antibiotics or admission and as the CT scan confirms no signs of obstruction or perforation/abscess there is no need for emergent surgical consultation and patient to be discharged home with symptomatic care History & Record Review Discussion w/independent historian: Patient Lab Data Attestation: I reviewed the patient's lab results. Labs: Laboratory Results - last 24 hr 09/27/24 00:46 WBC 9.3 RBC 4.31 Hgb 13.6 Hct 39.4 MCV 91.4 MCH 31.6 MCHC 34.5 RDW Std Deviation 43.7 RDW Coeff of Sanchez 13.1 Plt Count 400 MPV 9.2 Immature Gran % (Auto) 0.200 Neut % (Auto) 57.0 Lymph % (Auto) 31.9 Garfield % (Auto) 8.2 Eos % (Auto) 2.3 Baso % (Auto) 0.4 Absolute Neuts (auto) 5.3 Absolute Lymphs (auto) 2.97 Nucleated RBC % 0 Sodium 141 Potassium 4.1 Chloride 111 H Carbon Dioxide 25.0 Anion Gap 5 BUN 8 Creatinine 0.79 Estim Creat Clear Calc 109.52 Est GFR (MDRD) Af Amer 104 Est GFR (MDRD) Non-Af 86 BUN/Creatinine Ratio 10.1 Glucose 72 L Calcium 8.6 Total Bilirubin 0.30 Direct Bilirubin 0.11 AST 20 ALT 34 Alkaline Phosphatase 75 Total Protein 6.8 Albumin 3.1 L Globulin 3.7 Lipase 33 Urine Color Yellow Urine Clarity Clear Urine pH 6.0 Ur Specific Wayne 1.015 Urine Protein Negative Urine Glucose (UA) Normal Urine Ketones Negative Urine Occult Blood 25 H Urine Nitrite Negative Urine Bilirubin Negative Urine Urobilinogen Normal Ur Leukocyte Esterase 100 H Urine RBC 0 SEEN Urine WBC 0-5 SEEN Ur Squamous Epith Cells 0 SEEN Urine Bacteria RARE Urine Mucus 0 SEEN Radiography Diagnostic Testing: Clinical Impression(s) from Imaging Studies Abdomen/Pelvis CT 09/27/24 00:31 IMPRESSION: 1. No acute abnormality. 2. Nonobstructing left renal stone. Electronically Signed: Chris Novak DO at 2:58 EST Reading Location ID and State: [facility] / [place] Tel , Service support , Discharge Plan Triage Chief Complaint: Abd Pain ED Provider: Kane Palm Dx/Rx/DC Orders Clinical Impression: Abdominal wall cellulitis, Hypertension, Type 2 diabetes mellitus Instructions: Cellulitis Dc Prescriptions: New sulfamethoxazole-trimethoprim [Bactrim DS] 800-160 mg tablet 1 tab PO BID 10 Days Qty: 20 0RF oxycodone-acetaminophen [Percocet] 5-325 mg tablet 1 tab PO Q6H PRN (Reason: pain) 3 Days Qty: 12 0RF No Action multivitamin Tablet 1 tab PO DAILY cholecalciferol (vitamin D3) 50 mcg (2,000 unit) capsule 50 mcg PO DAILY calcium carb, citrate-vit D3 [Citracal-D3 Slow Release] 600 mg-12.5 mcg (500 unit) tablet extended release 2 tab PO QHS Trulicity 1.5 mg/0.5 mL pen injector 0.75 mg subcut QWEEK duloxetine 20 mg capsule,delayed release(DR/EC) 40 mg PO BID fluticasone propionate 16 GM spray,suspension 2 spry IH BID Patient Comments: Inhale 2 sprays in each nostril 1 time daily. Rinse mouth after use sumatriptan succinate 100 MG tablet 100 mg PO .X1 PRN epinephrine 0.3 MG/0.3 ML auto-injector 0.3 mg IJ X1 cyclobenzaprine 10 MG tablet 10 mg PO Q8H PRN (Reason: muscle spasms) nystatin 1 APPLIC ointment 1 applic TOPICAL TID Qty: 1 2RF Protocol: *Topical Application Instructions APPLICATION INSTRUCTIONS: in B/L groin area ondansetron 4 mg tablet,disintegrating 4 mg translingual Q6H PRN PRN (Reason: Nausea) Qty: 0 0RF Patient Comments: DISSOLVE ONE TABLET on the tongue EVERY 8 HOURS NEEDED FOR NAUSEA AND VOMITING pantoprazole 40 mg tablet,delayed release (DR/EC) 40 mg PO DAILY Primary Care Provider: Chris Licona Referrals: Chris Licona MD [Primary Care Provider] - Activity Restrictions/Additional Instructions: Your workup today did not show any obvious signs of urinary or kidney infection. CT scan did not reveal any postoperative complication or signs of bowel obstruction. Your physical exam does show changes concerning for abdominal wall cellulitis so take the antibiotic as directed. In order to prevent any postoperative ileus or constipation changes please take the previously prescribed senna and MiraLAX as directed and return to the ER should you have any further concern Print Language: Yoruba Disposition Disposition: Home, Self Care Discharge Date/Time: 09/27/24 03:46
[2024-09-27 03:41] VITALS: BP 136/64; PULSE 69; RESP 16; TEMP 36.9; O2SAT 99
[2024-09-27] MEDS: oxyCODONE 5 MG Tablet 10 MG PO (03:42)
[2024-09-27] MEDS: Smz/Tmp Ds Tablet 1 TABLET PO (03:42)
== END 2024-09-27 03:46 | disposition home or self-care (01) ==
PROVIDERS: Emergency Provider Emergency Medicine; PCP Family Medicine; Visit Provider Emergency Medicine
DX: L03.311 Cellulitis of abdominal wall (principal); E11.9 Type 2 diabetes mellitus without complications; I10 Essential (primary) hypertension; G47.30 Sleep apnea, unspecified; Z87.891 Personal history of nicotine dependence
CPT/HCPCS: 74177; 80048; 80076; 81001; 83690; 85025; 96361; 96374; 96375; 99285; Q9967; A4216; J2405

== ENCOUNTER 2024-10-26 10:15 | Day surgery (SDC) | payer MEDICAID, SELFPAY ==
--- NOTE | 2024-10-18 00:25 | PAT.ANESEVAL ---
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 When Was Last Pacemaker Check QUESTION #4 FULL TEXT: You/Your Family Experience fever (hyperthermia) with Anesthesia Last Oral Intake Last Oral intake: Last Oral Intake NPO since Meds taken in AM with sips of water? 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 Female Yes 10/17/24 09:31 HX of Motion Sickness Yes 10/17/24 09:31 HX of N/V After Surgery Yes 10/17/24 09:31 Non-Smoker Yes 10/17/24 09:31 Duration of Surgery greater Yes 10/17/24 09:31 than 60 minutes Number of Risk Factors 5 10/17/24 09:31 PONV Score Severe Risk 10/17/24 09:31 Height & Weight Height & Weight: Anesthesia: Height & Weight Height 5 ft 5 in 04/11/24 15:16 Respiratory Assessment Respiratory Assessment - sewing machines salesperson: Respiratory Tract Infection Hx - 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 Has anyone observed you stop breathing during sleep? STOP Results Positive 10/17/24 09:31 QUESTION #5 FULL TEXT : Do you snore loudly (louder than talking or can be heard through closed doors)? 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 Specify any problems Hx of Preganancy in last 3 No 10/17/24 09:31 Months Nurse Filling Out Transfusion MGRIFFITH 10/17/24 09:31 & Questions: Date: 10/17/24 10/17/24 09:31 Time: 09:34 10/17/24 09:31 Patient unable to answer at this time (ie. 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: /Reproductive Hx- sewing machines salesperson Hx Now No 10/17/24 09:31 Gestational Age (in weeks): EDC: Hx Hx Para Hx Section SAB No 10/17/24 09:31 PFSH Medical History (Updated 10/17/24 @ 09:45 by Vandana Hernandez) Wears glasses Wears contact lenses Smoker Marijuana use Depression Anxiety Migraine headache Gastric reflux History of sleep apnea PONV (postoperative nausea and vomiting) History of hypertension History of supraventricular tachycardia History of stress test Left elbow pain Right wrist pain Left lateral epicondylitis Right lateral epicondylitis Pes anserine bursitis Patellar tendinitis of left knee Left knee pain Diabetes mellitus type 2 in obese Sleep apnea Hypertension Home Medications ?Medication ?Instructions ?Recorded ?Last Taken ?Type fluticasone propionate 50 2 spry IH BID allergies 06/09/19 11/18/20 History mcg/actuation nasal spray,suspension sumatriptan succinate 100 mg tablet 100 mg PO .X1 PRN headaches 06/01/20 08/28/20 History cyclobenzaprine 10 mg tablet 10 mg PO Q8H PRN muscle spasms 11/19/20 Unknown History epinephrine 0.3 mg/0.3 mL 0.3 mg IJ X1 food allergy 11/19/20 11/12/20 History injection, auto-injector ondansetron 4 mg disintegrating 4 mg translingual Q6H PRN PRN 11/20/20 11/19/20 06:30 Rx tablet Nausea #0 tabs multivitamin 1 tab PO DAILY 06/29/23 Unknown History cholecalciferol (vitamin D3) 50 50 mcg PO DAILY 10/26/23 Unknown History mcg (2,000 unit) capsule calcium ER 600 mg (as carb,cit)-D3 2 tab PO QHS 01/07/24 Unknown History 12.5 mcg (500 unit) tablet, ext.rel (Citracal-D3 Slow Release) dulaglutide 1.5 mg/0.5 mL 0.75 mg subcut QWEEK 01/28/24 Unknown History subcutaneous pen injector (Trulicity) duloxetine 20 mg capsule,delayed 40 mg PO BID 07/07/24 Unknown History release pantoprazole 40 mg tablet,delayed 40 mg PO DAILY 09/26/24 Unknown History release oxycodone-acetaminophen 5 mg-325 1 tab PO Q6H PRN pain 3 days #12 09/27/24 Unknown Rx mg tablet (Percocet) tabs nystatin 100,000 unit/gram topical 1 applic topical TID PRN rash 10/17/24 Unknown History ointment Allergy/AdvReac Type Severity Reaction Status Date / Time Acrylic Acid and Acrylates Allergy Rash/Swelli Verified 10/17/24 09:25 (steri-strips (acrylate)) ng celecoxib (From Celebrex) Allergy Swelling Verified 10/17/24 09:25 lisinopril Allergy cough Verified 10/17/24 09:25 monosodium glutamate (msg) Allergy Food Verified 10/17/24 09:25 Allergy Penicillins Allergy Hives Verified 10/17/24 09:25 sucralfate Allergy Rash Verified 10/17/24 09:25 tramadol Allergy Rash/vomiti Verified 10/17/24 09:25 ng meperidine HCl (From Demerol) AdvReac hypotension Verified 10/17/24 09:25 Surgical History (Updated 10/17/24 @ 09:31 by Vandana Hernandez) History of colonoscopy History of arthroscopy of left knee History of meniscectomy of left knee Hx of hysterectomy Hx of adenoidectomy Hx of cholecystectomy Hx of tonsillectomy Hx of eye surgery Hx of section Hx of gastric bypass Social History Smoking Status: Current every day smoker tobacco type: cigarettes alcohol intake: never Audit: Pertinent Findings Pertinent Findings EKG Perinent findings: EKG from December 16, 2021 demonstrates normal sinus rhythm with nonspecific ST and T wave wave abnormalities Stress test pertinent findings: Patient had a stress test on December 17, 2021 that was negative for changes suggestive of ischemia or sustained ventricular arrhythmias, and there was normal myocardial perfusion study without evidence of ischemia or prior infarction. LV is normal in size with normal LV wall motion and LVEF greater than 55%. Recommendation Anesthesia Recommendation Anesthesia recommendation: OPTIMIZED for anesthesia
[2024-10-26] VITALS (13 sets, daily range): BP systolic 90–139; BP diastolic 56–85; PULSE 61–107; RESP 16–18; TEMP 36.1–36.4; O2SAT 96–100; BMI 33.7
[2024-10-26 11:17] LABS: Bedside Glucose 91 mg/dL (74-106)
--- NOTE | 2024-10-26 11:58 | PCM.PRE.AN2 ---
ASA Classification* ASA Classification ASA Classification: 2 Assessment & Plan Anesthesia* Anesthesia Assessment Anesthesia Assessment: Discussed sedation and/or anesthesia options, risks, benefits, and alternatives with patient/parents/legal guardian/POA. Questions invited. The patient/parents/legal guardian/POA seems to understand and agrees to proceed with anesthesia plan. Reviewed the physical assessment, medical history, allergy history and patient home medications list prior to surgery/procedure/anesthetic and documented any changes. Performed airway and anesthesia risk assessments. Anesthesia Type Anesthesia Type: General History Source History Obtained from:: Patient and Chart Anesthesia Focused Assessment* Temperature: 97.6 F Pulse Rate: 61 Blood Pressure: 130/72 Respiratory Rate: 16 Pulse Ox: 100 Oxygen Delivery Method: Room Air Airway Assessment Mouth opens: >3 cm Mallampati Score: I Teeth Condition: Caps/Crowns (Incissors) Neck Range of motion (ROM): Limited ROM Focused Labs Anesthesia Preop lab: CBC WBC 9.3 K/mm3 (4.4-11.0) 09/27/24 00:46 RBC 4.31 M/mm3 (4.2-5.4) 09/27/24 00:46 Hgb 13.6 g/dL (12.0-15.0) 09/27/24 00:46 Hct 39.4 % (37-47) 09/27/24 00:46 Plt Count 400 K/mm3 (150-450) 09/27/24 00:46 CHEMISTRY Potassium 4.1 mmol/L (3.5-5.1) 09/27/24 00:46 Sodium 141 mmol/L (136-145) 09/27/24 00:46 Magnesium 1.7 mg/dL (1.6-2.6) 11/20/20 03:55 Phosphorus 3.0 mg/dL (2.5-4.9) 11/20/20 03:55 BUN 8 mg/dL (7-18) 09/27/24 00:46 Creatinine 0.79 mg/dL (0.55-1.02) 09/27/24 00:46 Glucose 72 mg/dL (74-106) L 09/27/24 00:46 POC Glucose 91 mg/dL (74-106) 10/26/24 10:49 COAG HCG, Quant 805 mIU/mL (<9 non-preg) H 04/28/14 13:18 Urine Test Negative Negative 11/19/20 11:08 Pre-Assessment Diagnosis/Proposed Procedure Planned Operative Procedure(s): (L) Left elbow common extensor tendon debridement and repair Anesthesia History Anesthesia History - medical accounting clerk: Anesthesia History - medical accounting clerk Hx Hospitalization No 10/17/24 09:31 Any Problems With Anesthesia No 10/17/24 09:31 Cholinesterase deficiency No 10/17/24 09:31 You/Your Family Experience No 10/17/24 09:31 fever (hyperthermia) with Relationship Recent Exposure to Contagious No 10/26/24 10:51 Disease Does patient have nerve No 10/17/24 09:31 stimulator Patient instructed to have device shut off --Does patient have Pacemaker No 10/26/24 10:51 or ICD? When Was Last Pacemaker Check QUESTION #4 FULL TEXT: You/Your Family Experience fever (hyperthermia) with Anesthesia Last Oral Intake Last Oral intake: Last Oral Intake NPO since 22:00 10/26/24 10:51 Meds taken in AM with sips of No 10/26/24 10:51 water? Meds patient instructed to take am of surgery PONV PONV - medical accounting clerk: PONV - medical accounting clerk Female Yes 10/17/24 09:31 HX of Motion Sickness Yes 10/17/24 09:31 HX of N/V After Surgery Yes 10/17/24 09:31 Non-Smoker Yes 10/17/24 09:31 Duration of Surgery greater Yes 10/17/24 09:31 than 60 minutes Number of Risk Factors 5 10/17/24 09:31 PONV Score Severe Risk 10/17/24 09:31 Height & Weight Height & Weight: Anesthesia: Height & Weight Height 5 ft 5 in 10/26/24 10:51 Weight: 92 kg 10/26/24 10:51 Body Mass Index (BMI) 33.7 10/26/24 10:51 Respiratory Assessment Respiratory Assessment - medical accounting clerk: Respiratory Tract Infection Hx - medical accounting clerk Hx Respiratory Tract Infection No 10/17/24 09:31 STOP Sleep Apnea STOP Sleep Apnea - medical accounting clerk: STOP Sleep Apnea - medical accounting clerk Hx Hypertension Yes: HISTORY OF HTN; NO MEDS 10/17/24 09:31 NEEDED NOW Hx Sleep Apnea Yes: HISTORY OF ; RESOLVED 10/17/24 09:31 AFTER GASTRIC BYPASS CPAP No 10/17/24 09:31 BIPAP No 10/17/24 09:31 Do you snore loudly (louder than talking or can be heard Do you often feel tired/ fatigued/ sleepy during daytime? Has anyone observed you stop breathing during sleep? STOP Results Positive 10/17/24 09:31 QUESTION #5 FULL TEXT : Do you snore loudly (louder than talking or can be heard through closed doors)? 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 Specify any problems Hx of Preganancy in last 3 No 10/17/24 09:31 Months Nurse Filling Out Transfusion MGRIFFITH 10/17/24 09:31 & Questions: Date: 10/17/24 10/17/24 09:31 Time: 09:34 10/17/24 09:31 Patient unable to answer at this time (ie. confused, unrespo /Reproduction History /Reproductive History - medical accounting clerk: /Reproductive Hx- medical accounting clerk Hx Now No 10/17/24 09:31 Gestational Age (in weeks): EDC: Hx Hx Para Hx Section SAB No 10/17/24 09:31 Active Medications Active Medications: Current Medications Generic Name Dose Route Start Last Admin Trade Name Freq PRN Reason Stop Dose Admin Sodium Chloride 1,000 mls @ 15 mls/hr 10/26/24 10:25 IV 10/31/24 23:44 .Q48H [facility] Protocol PFSH Medical History Wears glasses Wears contact lenses Smoker Marijuana use Depression Anxiety Migraine headache Gastric reflux History of sleep apnea PONV (postoperative nausea and vomiting) History of hypertension History of supraventricular tachycardia History of stress test Left elbow pain Right wrist pain Left lateral epicondylitis Right lateral epicondylitis Pes anserine bursitis Patellar tendinitis of left knee Left knee pain Diabetes mellitus type 2 in obese Sleep apnea Hypertension Home Medications ?Medication ?Instructions ?Recorded ?Last Taken ?Type fluticasone propionate 50 2 spry IH BID allergies 06/09/19 11/18/20 History mcg/actuation nasal spray,suspension sumatriptan succinate 100 mg tablet 100 mg PO .X1 PRN headaches 06/01/20 08/28/20 History cyclobenzaprine 10 mg tablet 10 mg PO Q8H PRN muscle spasms 11/19/20 Unknown History epinephrine 0.3 mg/0.3 mL 0.3 mg IJ X1 food allergy 11/19/20 11/12/20 History injection, auto-injector ondansetron 4 mg disintegrating 4 mg translingual Q6H PRN PRN 11/20/20 11/19/20 06:30 Rx tablet Nausea #0 tabs multivitamin 1 tab PO DAILY 06/29/23 Unknown History cholecalciferol (vitamin D3) 50 50 mcg PO DAILY 10/26/23 Unknown History mcg (2,000 unit) capsule calcium ER 600 mg (as carb,cit)-D3 2 tab PO QHS 01/07/24 Unknown History 12.5 mcg (500 unit) tablet, ext.rel (Citracal-D3 Slow Release) dulaglutide 1.5 mg/0.5 mL 0.75 mg subcut QWEEK 01/28/24 Unknown History subcutaneous pen injector (Trulicity) duloxetine 20 mg capsule,delayed 40 mg PO BID 07/07/24 Unknown History release pantoprazole 40 mg tablet,delayed 40 mg PO DAILY 09/26/24 Unknown History release oxycodone-acetaminophen 5 mg-325 1 tab PO Q6H PRN pain 3 days #12 09/27/24 Unknown Rx mg tablet (Percocet) tabs nystatin 100,000 unit/gram topical 1 applic topical TID PRN rash 10/17/24 Unknown History ointment Allergy/AdvReac Type Severity Reaction Status Date / Time Acrylic Acid and Acrylates Allergy Rash/Swelli Verified 10/26/24 10:50 (steri-strips (acrylate)) ng celecoxib (From Celebrex) Allergy Swelling Verified 10/26/24 10:50 lisinopril Allergy cough Verified 10/26/24 10:50 monosodium glutamate (msg) Allergy Food Verified 10/26/24 10:50 Allergy Penicillins Allergy Hives Verified 10/26/24 10:50 sucralfate Allergy Rash Verified 10/26/24 10:50 tramadol Allergy Rash/vomiti Verified 10/26/24 10:50 ng meperidine HCl (From Demerol) AdvReac hypotension Verified 10/26/24 10:50 Surgical History (Updated 10/17/24 @ 09:31 by Vandana Hernandez) History of colonoscopy History of arthroscopy of left knee History of meniscectomy of left knee Hx of hysterectomy Hx of adenoidectomy Hx of cholecystectomy Hx of tonsillectomy Hx of eye surgery Hx of section Hx of gastric bypass Social History Smoking Status: Current every day smoker tobacco type: cigarettes alcohol intake: never Review of Systems (Anesthesia) ROS Narrative System reviewed and no additional complaints, except as documented.
--- NOTE | 2024-10-26 12:09 | PCM.HP.STD ---
HPI - General HPI Narrative JOSE SCHMIDT, is a 39 F who presents for left elbow common extensor tendon debridement and repair. rab, post op instructions and narcotic counselling. left elbow marked. no change to h and p. ok to proceed. MR#: [id number] Acct: [id number] Name: JOSE SCHMIDT Rep #: [id number] : 1985 Provider: Dr. Jason Acosta MD Age/Sex: 38/F Location: [facility] – [place] Status: Signed Intake Vital Signs 04/11/2415:16 Height 5 ft 5 in Intake Visit Reasons: LEFT ARM Chief Complaint: MRI review left elbow Accompanied by: Self Is patient in pain?: Yes Pain scale (1-10): 4 Allergies Acrylic Acid and Acrylates (steri-strips (acrylate)) Allergy (Verified 08/18/24 09:38) Rash/Swellingcelecoxib (From Celebrex) Allergy (Verified 08/18/24 09:38) Swellinglisinopril Allergy (Verified 08/18/24 09:38) coughmonosodium glutamate (msg) Allergy (Verified 08/18/24 09:38) Food AllergyPenicillins Allergy (Verified 08/18/24 09:38) Hivessucralfate Allergy (Verified 08/18/24 09:38) Rashtramadol Allergy (Verified 08/18/24 09:38) Rash/vomitingduloxetine (From Cymbalta) Adverse Reaction (Verified 08/18/24 09:38) headachesmeperidine HCl (From Demerol) Adverse Reaction (Verified 08/18/24 09:38) hypotension Medications ?Medication ?Instructions ?Recorded ?Confirmed ?Type fluticasone propionate 50 2 spry IH BID allergies 06/09/19 08/18/24 History mcg/actuation nasal spray,suspension sumatriptan succinate 100 mg tablet 100 mg PO .X1 PRN headaches 06/01/20 08/18/24 History cyclobenzaprine 10 mg tablet 10 mg PO Q8H PRN muscle spasms 11/19/20 08/18/24 History epinephrine 0.3 mg/0.3 mL 0.3 mg IJ X1 food allergy 11/19/20 08/18/24 History injection, auto-injector nystatin 100,000 unit/gram topical 1 applic topical TID #1 tube 11/20/20 08/18/24 Rx ointment ondansetron 4 mg disintegrating 4 mg translingual Q6H PRN PRN 11/20/20 08/18/24 Rx tablet Nausea #0 tabs multivitamin 1 tab PO DAILY 06/29/23 08/18/24 History norethindrone acetate 5 mg tablet mg PO 06/29/23 08/18/24 History cholecalciferol (vitamin D3) 50 50 mcg PO DAILY 10/26/23 08/18/24 History mcg (2,000 unit) capsule calcium ER 600 mg (as carb,cit)-D3 tab PO 01/07/24 08/18/24 History 12.5 mcg (500 unit) tablet, ext.rel (Citracal-D3 Slow Release) dulaglutide 1.5 mg/0.5 mL mg subcut 01/28/24 08/18/24 History subcutaneous pen injector (Trulicity) duloxetine 20 mg capsule,delayed 20 mg PO BID 07/07/24 08/18/24 History release PFSH Medical History Left elbow pain Right wrist pain Left lateral epicondylitis Right lateral epicondylitis Pes anserine bursitis Patellar tendinitis of left knee Left knee pain Diabetes mellitus type 2 in obese Sleep apnea Hypertension Surgical History Hx of adenoidectomy Hx of cholecystectomy Hx of tonsillectomy Hx of eye surgery Hx of section Hx of gastric bypass Social History Smoking Status: Current every day smoker tobacco type: cigarettes alcohol intake: never HPI LEFT ARM Details: This documentation accurately reflects the service provided and the decisions made by me, Dr. Jason Acosta MD 08/18/24 2637. Part of today?s visit was documented by [ ], acting as scribe. JOSE SCHMIDT is a 38 year old F here today for follow-up left elbow MRI. 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 Still having laterally based elbow pain worse with lifting. Patient has now had multiple cortisone injections and exercise therapy. Supplemental Info [facility] Imaging [address] [id number] Upper Ext Joint Only(Routine) MR#: [id number] Acct: [id number] Name: JOSE SCHMIDT Rep #: [id number] : 1985 F 38 From: Jose Del Castillo MD PCP: Dr. Chris Licona MD Status: REG CLI Study: Upper Ext Joint Only(Routine) Date of Exam: 08/05/24 Exam# [id number] Ordering Dr: Jason Acosta MD STUDY: MRI LEFT ELBOW REASON FOR EXAM: Female, 38 years old. Pain and limited range of motion with weakness. Evaluate for common extensor tendon injury. TECHNIQUE: Standardized fat and water weighted pulse sequences were obtained in all 3 orthogonal planes. COMPARISON: None. FINDINGS: Small elbow joint effusion (coronal series 6 image 16). Normal radial collateral ligamentous complex. Marked common extensor tendinosis with a high-grade intrasubstance partial tear at its origin (coronal series 6 images 12-17). Normal ulnotrochlear articulation. Normal ulnar collateral ligamentous complex. Normal common flexor tendon. The cubital tunnel is normal, with a normal ulnar nerve. Normal biceps tendon and distal insertion. Normal lacertus fibrosis. Normal brachialis musculotendinous insertion. Normal triceps tendon and teno-osseous insertion. Normal olecranon process. The visualized distal humerus, proximal radius, and ulna are normal. The visualized muscles of the distal arm and proximal forearm are normal. The soft tissue structures are normal. MRI/Upper Ext Joint Only(Routine) IMPRESSION: Marked common extensor tendinosis with a high-grade intrasubstance partial tear of the tendon at its origin. Small joint effusion. No other abnormality. Electronically Signed: Jose Del Castillo MD at 14:47 EST Reading Location ID and State: [address] [place] [address] , Service support , I independently reviewed the imaging. Concur with radiologist report. Coding Level of Care Code Off vis,est,level 4 Diagnoses Left elbow pain M25.522 Left lateral epicondylitis M77.12 Assessment and Plan Assessment and Plan (1) Left elbow pain: Status: Acute Plan: 38 F with left elbow MRI evidence of marked common extensor tendinosis with a high-grade intrasubstance partial tear of the tendon at its origin. I explained the diagnosis prognosis different treatment options available to the patient including conservative management ongoing physical therapy rest ice anti-inflammatories and cortisone injections. The patient can also try surgery and they are interested in mass. This would be in the form of left elbow common extensor tendon debridement and repair. I explained the recovery for that 2 weeks in a sling 6 to 8 weeks of gentle range of motion followed by strengthening up to 3 to 4 months before returning to full lifting and other activities they understood wished to go ahead with surgery and does have diabetes that increases the risks of infection and wound healing complications and other problems associated with the surgery. Pros and cons risks and benefits were discussed with the patient including but not limited to infection, pain, stiffness, bleeding, damage to surrounding structures, neurovascular injury, recurrence or retear, failure or wear of hardware or fixation, instability, fracture, deep vein thrombosis and pulmonary embolism, anesthetic risks, , patient dissatisfaction, need for further surgery and other risks. Patient understood and wished to proceed with surgery, and signed the informed consent documentation. (2) Left lateral epicondylitis: Status: Acute Ortho Exam General General: Yes no acute distress Neurologic: Yes alert and Yes oriented x3 Psychologic: Yes reasonable and appropriate Left Elbow Skin/Wound: Yes CDI, No eccymosis, No erythema and No Swelling [facility] Medical History Wears glasses Wears contact lenses Smoker Marijuana use Depression Anxiety Migraine headache Gastric reflux History of sleep apnea PONV (postoperative nausea and vomiting) History of hypertension History of supraventricular tachycardia History of stress test Left elbow pain Right wrist pain Left lateral epicondylitis Right lateral epicondylitis Pes anserine bursitis Patellar tendinitis of left knee Left knee pain Diabetes mellitus type 2 in obese Sleep apnea Hypertension Home Medications ?Medication ?Instructions ?Recorded ?Last Taken ?Type fluticasone propionate 50 2 spry IH BID allergies 06/09/19 11/18/20 History mcg/actuation nasal spray,suspension sumatriptan succinate 100 mg tablet 100 mg PO .X1 PRN headaches 06/01/20 08/28/20 History cyclobenzaprine 10 mg tablet 10 mg PO Q8H PRN muscle spasms 11/19/20 Unknown History epinephrine 0.3 mg/0.3 mL 0.3 mg IJ X1 food allergy 11/19/20 11/12/20 History injection, auto-injector ondansetron 4 mg disintegrating 4 mg translingual Q6H PRN PRN 11/20/20 11/19/20 06:30 Rx tablet Nausea #0 tabs multivitamin 1 tab PO DAILY 06/29/23 Unknown History cholecalciferol (vitamin D3) 50 50 mcg PO DAILY 10/26/23 Unknown History mcg (2,000 unit) capsule calcium ER 600 mg (as carb,cit)-D3 2 tab PO QHS 01/07/24 Unknown History 12.5 mcg (500 unit) tablet, ext.rel (Citracal-D3 Slow Release) dulaglutide 1.5 mg/0.5 mL 0.75 mg subcut QWEEK 01/28/24 Unknown History subcutaneous pen injector (Trulicity) duloxetine 20 mg capsule,delayed 40 mg PO BID 07/07/24 Unknown History release pantoprazole 40 mg tablet,delayed 40 mg PO DAILY 09/26/24 Unknown History release oxycodone-acetaminophen 5 mg-325 1 tab PO Q6H PRN pain 3 days #12 09/27/24 Unknown Rx mg tablet (Percocet) tabs nystatin 100,000 unit/gram topical 1 applic topical TID PRN rash 10/17/24 Unknown History ointment Allergy/AdvReac Type Severity Reaction Status Date / Time Acrylic Acid and Acrylates Allergy Rash/Swelli Verified 10/26/24 10:50 (steri-strips (acrylate)) ng celecoxib (From Celebrex) Allergy Swelling Verified 10/26/24 10:50 lisinopril Allergy cough Verified 10/26/24 10:50 monosodium glutamate (msg) Allergy Food Verified 10/26/24 10:50 Allergy Penicillins Allergy Hives Verified 10/26/24 10:50 sucralfate Allergy Rash Verified 10/26/24 10:50 tramadol Allergy Rash/vomiti Verified 10/26/24 10:50 ng meperidine HCl (From Demerol) AdvReac hypotension Verified 10/26/24 10:50 Surgical History (Updated 10/17/24 @ 09:31 by Vandana Hernandez) History of colonoscopy History of arthroscopy of left knee History of meniscectomy of left knee Hx of hysterectomy Hx of adenoidectomy Hx of cholecystectomy Hx of tonsillectomy Hx of eye surgery Hx of section Hx of gastric bypass Social History Smoking Status: Current every day smoker tobacco type: cigarettes alcohol intake: never Vital Signs Vital Signs Vital Signs: 10/26/24 10:51 10/26/24 10:51 10/26/24 11:59 Temperature 97.6 F L 97.6 F L Temperature Source Temporal Pulse Rate 61 61 Respiratory Rate 16 16 Respiratory Pattern Normal Blood Pressure 130/72 H 130/72 H Blood Pressure Mean 91 Blood Pressure Source Monitor Blood Pressure Position Sitting Blood Pressure Location Right Arm Pulse Ox 100 100 Oxygen Delivery Method Room Air Room Air Weight Weight: 202 lb 13.204 oz Body Mass Index (BMI) 33.7 Results Lab / Micro Data Labs: Laboratory Results - last 24 hr 10/26/24 10:49: POC Glucose 91
[2024-10-26] MEDS: Cefazolin 2 GM in Syringe IV (12:24)
[2024-10-26] MEDS: Bupivacaine 0.25% 30 ML Vial (13:12)
--- NOTE | 2024-10-26 13:23 | OP.PCM_ITS ---
Problems Associated Problem List Diagnoses (1) Left lateral epicondylitis: Procedures Musculoskeletal 20xxx-29xxx: Other Procedure See Report Operative Report (Standard) Operative Information Date of Procedure: 10/26/24 Pre-Operative Diagnosis: L elbow lateral epicondylitis and common extensor tendon tearing Post-Operative Diagnosis: Same Surgery/Procedure Performed: Left elbow common extensor tendon debridement and repair sap abap programmer: Yes Transformation Architect: hamilton Tasks completed by waiter/waitress first class: Retracting Additional starch treating assistant?: No Type of Anesthesia: General and Local RN Documented Start/Stop Times: Operation Date: 10/26/24 11:45 Case Time Into Pre-Op 10/26/24 10:21 Anesthesia Start 10/26/24 12:24 Into Room 10/26/24 12:24 Procedure Start 10/26/24 12:49 Procedure End 10/26/24 13:17 Procedure Start Time: 12:49 Procedure Stop Time: 13:17 Select all DRAINS/GRAFTS/IMPLANTS that apply: Implanted device Implanted device details: 1.8mm arthrex fiber marcy anchor Estimated Blood Loss: 10 Specimen collected: No Description of surgery: Patient brought to the operating room theater. Placed supine on the table. General anesthesia induced. All bony prominences padded. SCDs on the legs. Patient transferred left side up lateral decubitus beanbag positioner axillary roll used. 2 g IV Ancef administered prior to the start of the procedure. Upper extremity prepped and draped in the usual sterile fashion with chlorhe xidine-based prep solution allowing over 3 minutes drying time prior to draping. Preoperative timeout performed to confirm the site patient the surgery. Began by elevating the limb inflated the tourniquet to 250 mmHg. Made a standard lateral incision centered over the lateral aspect of the elbow over the lateral epicondyle. Carried dissection down through skin tissue achieved meticulous hemostasis. Identified the common extensor origin out of the lateral condyle. Sharply incised this as well as making a longitudinal split along common extensor origin. Debrided the any damaged tissue as well as deep tissue ECRB and staying above the equator to not damage the lateral collateral ligament complex. I then debrided the lateral condyle using a rongeur to punctate bleeding bone. I placed a Arthrex 1.8 mm fiber tack knotless anchor at that place at the lateral epicondyle. I then passed the repair suture distally and then back approximately and then converted the suture and the knotless mechanism pulled that tight to repair the common extensor tendon back to its origin. Tourniquet let down wound thoroughly irrigated with normal saline meticulous hemostasis achieved. I closed the soft tissues with 2-0 Vicryl suture and skin with 3-0 Monocryl with Dermabond as the patient had a Steri-Strip allergy. Subsequent to that drying placed Adaptic 4 x 4 gauze sterile cast padding and a posterior fiberglass prefabricated splint with the elbow in 90 degrees flexion and overwrapped with loosely wrapped Sanju wrap and a sling for the upper extremity. Patient woken up from a general anesthetic transferred off the operating table taken postanesthetic care unit in stable condition. All sponge needle instrument counts were correct no complications plan to the patient discharged home according to day surgery criteria. CPT 51984 and 38651 Surgical Findings: as above. Complications Complications: No Admit VTE Documentation VTE Present on Admission: No VTE Mechan Device Prophylaxis: SCD's VTE Pharm Prophylaxis ordered?: No Reason prophylaxis not ordered: Treatment Not Indicated
--- NOTE | 2024-10-26 13:33 | DCINST_ITS ---
Discharge Instructions Diet Discharge Diet: No restrictions Activity Ice area for (Minutes): 10 Lifting Restrictions: no lifting Keep extremity elevated above heart level: Operative Extremity Dressing / Incision Call your doctor if your incision/area has: Continuous Slow Oozing, Sudden Increased Bleeding, Increased Pain/ Swelling, Increased Redness, Foul Smelling Discharge and Swelling at the incision site Call your doctor if you observe: Fever of 101 or Higher, Coldness, Increased Pain and Numbness or Tingling Remove Dressing in: leave in place till F/U Cleanse incision/area with: Do not get Incision Wet Follow Up Care Please Follow Up With: Jason Acosta MD When: 2 days Test Results: Test results from this visit will be discussed in further detail at your follow- up appointment, if applicable. Discharge Plan Admission Attending Provider: Jason Acosta Primary Care Provider: Chris Licona Instructions Print Language: Romanian Discharge Orders/Prescriptions Prescriptions: New oxycodone-acetaminophen [Endocet] 5-325 mg tablet 1 tab PO Q8H MDD 4 PRN (Reason: pain) 3 Days Qty: 10 0RF No Action multivitamin Tablet 1 tab PO DAILY cholecalciferol (vitamin D3) 50 mcg (2,000 unit) capsule 50 mcg PO DAILY calcium carb, citrate-vit D3 [Citracal-D3 Slow Release] 600 mg-12.5 mcg (500 unit) tablet extended release 2 tab PO QHS Trulicity 1.5 mg/0.5 mL pen injector 0.75 mg subcut QWEEK duloxetine 20 mg capsule,delayed release(DR/EC) 40 mg PO BID fluticasone propionate 16 GM spray,suspension 2 spry IH BID Patient Comments: Inhale 2 sprays in each nostril 1 time daily. Rinse mouth after use sumatriptan succinate 100 MG tablet 100 mg PO .X1 PRN epinephrine 0.3 MG/0.3 ML auto-injector 0.3 mg IJ X1 cyclobenzaprine 10 MG tablet 10 mg PO Q8H PRN (Reason: muscle spasms) ondansetron 4 mg tablet,disintegrating 4 mg translingual Q6H PRN PRN (Reason: Nausea) Qty: 0 0RF Patient Comments: DISSOLVE ONE TABLET on the tongue EVERY 8 HOURS NEEDED FOR NAUSEA AND VOMITING nystatin 1 APPLIC ointment 1 applic TOPICAL TID PRN (Reason: rash) Protocol: *Topical Application Instructions APPLICATION INSTRUCTIONS: in B/L groin area pantoprazole 40 mg tablet,delayed release (DR/EC) 40 mg PO DAILY oxycodone-acetaminophen [Percocet] 5-325 mg tablet 1 tab PO Q6H PRN (Reason: pain) 3 Days Qty: 12 0RF Referrals / Follow Up: Chris Licona MD [Primary Care Provider] - Jason Acosta MD [Med Staff - Active Staff] - Disposition Disposition (needs filled in before D/C Order can be placed): Home, Self Care
--- NOTE | 2024-10-26 14:22 | PCM.POSTANE2 ---
Anesthesia Postop Eval I Sum Anesthesia Postop Eval I Summary Anesthesia Postop Eval I Summary: Anesthesia Postop Eval I: Assessment Summary Airway patent Spontaneous unlabored respirations Mental status nausea Vomiting Anesthesia Postop Eval I: Fluid Summary Crystalloid volume administer (ml) Colloids volume administered ( ml) Blood Product volume administered (ml) Total IV fluid infused Anesthesia Postop Eval I: Summary Notes Anesthesia Complication Anesthesia Complication Comment: Post-operative progress note Anesthesia: Postop Eval II Evaluation Mental status: Awake Pain Level: 6 nausea: No Vomiting: No Complications Anesthesia Complication: No
--- NOTE | 2024-10-26 15:02 | PCM.POST.ANE ---
Anesthesia: Postop Eval I Current Vital Signs Temperature: 97 F Pulse Rate: 85 Blood Pressure: 108/68 Respiratory Rate: 16 Pulse Ox: 98 Assessment Airway patent: Yes Spontaneous unlabored respirations: Yes nausea: No Vomiting: No Anesthesia Complication: No Fluid Hydration Crystalloid volume administer (ml): 800 Total IV fluid infused: 800 Progress Note Anesthesia document: Postop Eval 1 completed: Yes
[2024-10-26] MEDS: HYDROcodone Bitartrate/Apap 5/325 Tablet PO (15:04)
== END 2024-10-26 15:48 | disposition home or self-care (01) ==
LOC: SDC 10:18 → AC 10:18
PROVIDERS: PCP Family Medicine; Referring Provider Orthopaedic Surgery Sports Medicine; Visit Provider Orthopaedic Surgery Sports Medicine
PROC: (CPT 24359; principal; 2024-10-26 11:30)
DX: M77.12 Lateral epicondylitis, left elbow (principal); E11.9 Type 2 diabetes mellitus without complications; S56.512A Strain of other extensor muscle, fascia and tendon at forearm level, left arm, initial encounter; I10 Essential (primary) hypertension; K21.9 Gastro-esophageal reflux disease without esophagitis; F17.210 Nicotine dependence, cigarettes, uncomplicated; Z79.85 Long-term (current) use of injectable non-insulin antidiabetic drugs; Z79.899 Other long term (current) drug therapy
CPT/HCPCS: 24359; 01712; 82962; C1713; A4216; J2405

== ENCOUNTER 2025-03-02 14:30 | Outpatient (RCR) | payer MEDICAID, SELFPAY ==
--- NOTE | 2024-11-14 12:35 | HP.PTEVAL ---
Patient's Visit Information Visit Information Visit Information: JOSE SCHMIDT is a 39 year old F referred to Physical Therapy by Dr. Jason Acosta MD with a diagnosis of L epicondyle extensor tendon repair 10/26/24. Date of Evaluation: 11/14/24 Physical Therapist: Yimi Galarza, PT, ATC Visit Plan Frequency: 1x/Week Duration: 8 weeks Plan: L wrist stretching, [facility], [facility], and HEP. Begin strengthening x 6 weeks post op Subjective Subjective: DOS: 10/26/24. Pt reports she ruptured her extensor tendon in her L elbow in June and had to have it repaired. Pt notes she was in a cast for 2 days, and has been out of it since. Pt reports she has been gently stretching her wrist to help with her pain. Pt notes she just saw her doctor a week ago, and he was pleased with her progress. Pt5 reports she has experienced tingling in her hand since the surgery. Pt also notes she gets a lot of spasms in her L arm as well. Pt notes she is R hand dominant. 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 Pt reports sleep difficulty secondary to pain. 4/10 pain while sitting here at rest, 10/10 pain at worst Pain L elbow: Pain Intensity (Out of 10): 4 Pain Intensity Range: 10 Objective Objective: Neuro: B UE sensation is WNL to light touch. Observation: Incision is mostly healed. No signs of infection. ROM: R wrist flex= 75, ext= 55; L wrist flex= 75, ext= 35 degrees MMT: R wrist flex= 27, ext= 18 #F; L wrist not tested today. Balance/Special Test Scores Quick DASH Score: 63.6350 Goals Goal 1:: Decrease L elbow pain x 50% to aid with sleep Goal Time Frame: 4-6 Weeks Goal 2:: Increase L wrist extension ROM x 30 degrees to aid with IADL's Goal Time Frame: 4-6 Weeks Goal 3:: [id number] L wrist strength to 90% of R wrist strength to aid with RTW without limitation Goal Time Frame: 4-6 Weeks Goal 4:: I with HEP Goal Time Frame: 4-6 Weeks Rehabilitation Potential Physical Therapy Diagnosis: Pt has L elbow pain, weakness, and limited ROM secondary to L lateral extensor tear Rehabilitation Potential: Good Anticipated Interventions Patient/Client Instruction: Educate patient on: Condition and Plan of Care For the Purpose of:: To improve self management Therapeutic Exercise to Include: Strength training, Flexibilty training, Passive ROM and Active ROM For the Purpose of:: To decrease pain, To increase ROM and To improve muscle performance and motor function Cryotherapy (ice pack, ice massage): Yes For the Purpose of:: To decrease pain Text: Thank you for the opportunity to evaluate your patient. For Medicare and Medicare HMO plans, please review the plan of care and approve it. It will need to be FAXED BACK to us at [phone] for Medicare purposes. For Medicare only, by signing this I certify the plan of care. Please let me know if there are questions or concerns regarding this plan of care. Physician Signature: Date:
--- NOTE | 2025-01-04 12:23 | HP.PTREVAL ---
Re-Evaluation Intro: Dr. Jason Acosta MD, It has been my pleasure to treat JOSE SCHMIDT over the last 8 visits for L epicondyle extensor tendon repair 10/26/24. Please see the progress note below for an update on the physical therapy plan of care! Subjective Subjective: Pt reports she still has a lot of pain and is limited with most activities Objective Objective/Function: L elbow pain ranges from 4-6/10 L wrist extension ROM: 30 degrees L wrist strength: flex= 23, ext= 4 #F Pt has improved overall with pain. ROM is unchanged at this time. Strength is only 25% of contralateral side. Pt would benefit from further skilled therapy to focus on functional strength and ROM Plan Plan Plan: Attempt to get 8 more visits to focus on functional ROM and strength at this time Balance/Gait/Functional tests Balance/Special Test Scores Quick DASH Score: 36.3625 Goals Goals Goal 1:: Decrease L elbow pain x 50% to aid with sleep Goal Time Frame: 4-6 Weeks Goal 2:: Increase L wrist extension ROM x 30 degrees to aid with IADL's Goal Time Frame: 4-6 Weeks Goal 3:: [id number] L wrist strength to 90% of R wrist strength to aid with RTW without limitation Goal Time Frame: 4-6 Weeks Goal 4:: I with HEP Goal Time Frame: 4-6 Weeks Anticipated Interventions Anticipated Interventions Patient/Client Instruction: Educate patient on: Condition and Plan of Care For the Purpose of:: To improve self management Therapeutic Exercise to Include: Strength training, Flexibilty training, Passive ROM and Active ROM For the Purpose of:: To decrease pain, To increase ROM and To improve muscle performance and motor function Cryotherapy (ice pack, ice massage): Yes For the Purpose of:: To decrease pain Re-Evaluation Ending Re-evaluation ending: Please do not hesitate to contact me at [phone] by phone or if you have questions or concerns regarding this new plan of care! Sincerely, Yimi Galarza, PT, ATC
--- NOTE | 2025-03-02 15:34 | HP.PTDCSUM ---
Discharge Summary D/C summary: It has been my pleasure to treat JOSE SCHMIDT referred by Dr. Jason Acosta MD, with the diagnosis of L epicondyle extensor tendon repair 10/26/24 for a total of 15 visit(s). Discharge Date: Please see the following information for a summary of their discharge status. Subjective Subjective: Pt reports she is ready for discharge. She is able to do all she wants to do. Pain L elbow: Pain Intensity (Out of 10): 3 Overall Improvement % Improvement: 90 Objective Objective/Function: L lateral elbow pain ranges from 0-3/10 L wrist ext ROM: 65 degrees L wrist strength: flex= 33, ext = 17 #F Pt is I with HEP Goals Goal 1:: Decrease L elbow pain x 50% to aid with sleep Goal Progress: Goal Met Goal 2:: Increase L wrist extension ROM x 30 degrees to aid with IADL's Goal 3:: [id number] L wrist strength to 90% of R wrist strength to aid with RTW without limitation Goal 4:: I with HEP Goal Progress: Goal Met Plan Plan: Discharge to HEP D/C Information d/c sentence: If there are questions or concerns regarding this patient's physical therapy, please feel free to call me at [phone]. Thank you for the referral of this patient. Sincerely, Yimi Galarza, PT, ATC Balance/Gait/Functional tests Balance/Special Test Scores Quick DASH Score: 6.8175 Improvement % Improvement: 90
== END 2025-03-02 19:00 | disposition home or self-care (01) ==
LOC: PT 14:30
PROVIDERS: PCP Family Medicine; Referring Provider Orthopaedic Surgery Sports Medicine; Visit Provider Orthopaedic Surgery Sports Medicine
DX: M77.12 Lateral epicondylitis, left elbow (principal)
CPT/HCPCS: 97110; 97140; 97161; 97530